=== PATIENT | male | born 1955 | race Hispanic/Latino ===

== ENCOUNTER → 2017-11-22 | Outpatient (CLI) | payer MEDICARE ==
[~2017-11-22] MED LIST: AMLODIPINE BESY10 MG PO; ATORVASTATIN CA20 MG PO; CEFTIN PO; CHERATUSSIN AC118 ML PO; CYCLOBENZAPRINE10 MG PO; DOXAZOSIN MESYLA4 MG PO; FAMOTIDINE20 MG PO; LISINOPRIL10 MG PO; MELOXICAM15 MG PO; METFORMIN HCL850 MG PO; METOCLOPRAMIDE10 MG PO; METOPROLOL SUCC25 MG PO; ULTRAM50 MG PO; ZITHROMAX500 MG PO
--- NOTE | 2017-11-22 12:51 | Diagnostic Imaging Report ---
EXAMINATION: Scrotal ultrasound CLINICAL INDICATION: Hydrocele. COMPARISON: None. TECHNIQUE: Grayscale and color Doppler evaluation of the scrotum was performed in transverse and longitudinal planes. FINDINGS: The right testicle measures 5.4 x 2.5 x 2.8 cm. There are no masses or calcifications.. The right epididymis measures 1.3 x 1.1 x 0.8 cm. No nodules or masses.. There is no evidence of right hydrocele or varicocele. There is normal flow to the right testicle, without evidence of torsion. The left testicle measures 4.9 x 2.5 x 3.4 cm. There are no masses or calcifications.. The left epididymis measures 1.8 x 1.2 x 1 cm. There are 3 separate ovoid anechoic lesions in the left epididymis ranging in size from 0.3 cm to 1.2 cm.. Moderate mildly complex left hydrocele with multiple dependent low-level internal echoes. There is normal flow to the left testicle without evidence of torsion. The scrotum has a normal appearance, without focal lesions. Impression: Moderate minimally complex left hydrocele. Multiple left epididymal head cysts or spermatoceles. Unremarkable sonographic appearance of the testes. Signed by: Dr. Nacho Modi M.D. on 11/22/2017 12:48 PM
== END ==
LOC: US 11:34
PROVIDERS: ATTEND Urology
DX: N43.3 Hydrocele, unspecified (principal)
CPT/HCPCS: 76870; 93976

== ENCOUNTER 2018-01-26 01:55 | Observation (INO) | payer MEDICARE ==
[~2018-01-26] VITALS: Ht 170.2 cm; Wt 88.5 kg
[2018-01-26] VITALS (9 sets, daily range): BP systolic 116–142; BP diastolic 59–72
--- OUTSIDE RECORDS SUMMARY | 2018-01-26 01:58 | XMS REPORT ---
Author Author Admin, [place] Organization [facility] Address [address] [place] [address] Phone Allergies, Adverse Reactions, Alerts Allergy Name Reaction Description Start Date Severity Status Provider No Known Allergies Cyndiesharleneharitha Irene WEB SITE ADMIN Conditions or Problems Problem Name Problem Code Onset Date Status Entry Date Provider Comment Standard Description Annotate Cough 786.2 Active David Fletcher MD Cough URI 465.9 Active David Fletcher MD Acute upper respiratory infections of unspecified site Astigmatism - OU 367.2 Active Deborah Bhakhrani OD Astigmatism Hyperopia - OU 367.0 Active Deborah Bhakhrani OD Hypermetropia Presbyopia - OU 367.4 Active Deborah Bhakhrani OD Presbyopia Depression 311 Active David Fletcher MD Depressive disorder, not elsewhere classified Diabetes mellitus, type II 250.00 Active David Fletcher MD Diabetes mellitus without mention of complication, type II or unspecified type, not stated as uncontrolled Vaccination Against Influenza V04.81 Active David Fletcher MD Need for prophylactic vaccination and inoculation against influenza Hypogonadism 257.2 Active David Fletcher MD Other testicular hypofunction Libido, decreased 799.81 Active David Fletcher MD Decreased libido 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 David Fletcher MD Other nonthrombocytopenic purpuras Smoker 305.1 Active David Fletcher MD Tobacco use disorder BPH 600.00 Active David Fletcher MD Hypertrophy (benign) of prostate without urinary obstruction and other lower urinary tract (LUTS) Hypertension 401.1 Active David Fletcher MD Benign essential hypertension Hypothyroidism 244.9 Active David Fletcher MD Unspecified hypothyroidism Muscle spasm of back 724.8 Active David Fletcher MD Other symptoms referable to back Vaccination Against Influenza V04.81 Inactive David Fletcher MD Need for prophylactic vaccination and inoculation against influenza Vaccination Against Influenza ICD-V04.81 Inactive David Fletcher MD Medication List Medication Instructions Start Date Stop Date Generic Name NDC Status Provider Patient Instruction CHERATUSSIN AC 100-10 MG/5ML ORAL SYRUP 2 teaspoons (10mL) by mouth at bedtime as needed for cough GUAIFENESIN-CODEINE 88647499534 Active David Fletcher MD Active METFORMIN HCL 850 MG ORAL TABLET 1 by mouth twice a day METFORMIN HCL 32629746451 Active David Fletcher MD Active AMLODIPINE BESYLATE 10 MG ORAL TABLET 1 tab by mouth daily AMLODIPINE BESYLATE 39341240522 Active David Fletcher MD Active ATORVASTATIN CALCIUM 20 MG ORAL TABLET take one tab By Mouth Every Day ATORVASTATIN CALCIUM 65500618632 Active David Fletcher MD Active METOPROLOL SUCCINATE ER 25 MG ORAL TABLET EXTENDED RELEASE 24 HOUR 1 tab by mouth daily METOPROLOL SUCCINATE 74706302941 Active David Fletcher MD Active LISINOPRIL 20 MG ORAL TABLET 1 by mouth every day LISINOPRIL 83737807602 Active David Fletcher MD Active CYCLOBENZAPRINE HCL 10 MG ORAL TABLET 1 By Mouth three times a day as needed for muscle spasm CYCLOBENZAPRINE HCL 04905085430 Active David Fletcher MD Active LEVOTHYROXINE SODIUM 25 MCG ORAL TABLET One tab by mouth daily LEVOTHYROXINE SODIUM 42007026009 Active David Fletcher MD Active MELOXICAM 15 MG ORAL TABLET take one tab By Mouth Every Day As Needed for pain MELOXICAM 24131120400 Active David Fletcher MD Active TAMSULOSIN HCL 0.4 MG ORAL CAPSULE take 2 caps By Mouth Every Day TAMSULOSIN HCL 80757186008 Active David Fletcher MD Active Immunizations Vaccine Administration Date Value Standard Description influenza immunization (Flu Vax) has been administered given influenza virus vaccine, unspecified formulation influenza immunization (Flu Vax) has been administered given influenza virus vaccine, unspecified formulation Vital Signs Date Name Value Unit Range Description blood pressure, diastolic 67 mm[Hg] BP billings blood pressure, systolic 112 mm[Hg] BP sys height E&M 67 [in_us] Bdy height pulse rate E&M 110 /min Heart rate respiratory rate E&M 18 /min Resp rate temperature E&M 98.0 [degF] Body temperature weight E&M 195.50 [lb_av] Weight Measured blood pressure, diastolic 74 mm[Hg] BP billings blood pressure, systolic 125 mm[Hg] BP sys height E&M 67 [in_us] Bdy height pulse rate E&M 75 /min Heart rate respiratory rate E&M 18 /min Resp rate temperature E&M 98.1 [degF] Body temperature weight E&M 198.13 [lb_av] Weight Measured blood pressure, diastolic 74 mm[Hg] BP billings blood pressure, systolic 118 mm[Hg] BP sys height E&M 67 [in_us] Bdy height pulse rate E&M 87 /min Heart rate respiratory rate E&M 18 /min Resp rate temperature E&M 97.8 [degF] Body temperature weight E&M 196.25 [lb_av] Weight Measured blood pressure, diastolic 76 mm[Hg] BP billings blood pressure, systolic 131 mm[Hg] BP sys height E&M 67 [in_us] Bdy height pulse rate E&M 77 /min Heart rate respiratory rate E&M 16 /min Resp rate temperature E&M 98.3 [degF] Body temperature weight E&M 197 [lb_av] Weight Measured blood pressure, diastolic 85 mm[Hg] BP billings blood pressure, systolic 128 mm[Hg] BP sys height E&M 67 [in_us] Bdy height pulse rate E&M 82 /min Heart rate respiratory rate E&M 18 /min Resp rate temperature E&M 98.3 [degF] Body temperature weight E&M 200.38 [lb_av] Weight Measured blood pressure, diastolic 85 mm[Hg] BP billings blood pressure, systolic 138 mm[Hg] BP sys height E&M 67 [in_us] Bdy height pulse rate E&M 87 /min Heart rate respiratory rate E&M 18 /min Resp rate temperature E&M 98.2 [degF] Body temperature weight E&M 295.38 [lb_av] Weight Measured blood pressure, diastolic 82 mm[Hg] BP billings blood pressure, systolic 145 mm[Hg] BP sys height E&M 67 [in_us] Bdy height pulse rate E&M 83 /min Heart rate respiratory rate E&M 20 /min Resp rate temperature E&M 97.4 [degF] Body temperature weight E&M 204.80 [lb_av] Weight Measured blood pressure, diastolic 85 mm[Hg] BP billings blood pressure, systolic 135 mm[Hg] BP sys height E&M 67 [in_us] Bdy height pulse rate E&M 78 /min Heart rate respiratory rate E&M 18 /min Resp rate temperature E&M 98.2 [degF] Body temperature weight E&M 199.25 [lb_av] Weight Measured blood pressure, diastolic 90 mm[Hg] BP billings blood pressure, systolic 157 mm[Hg] BP sys height E&M 67 [in_us] Bdy height pulse rate E&M 72 /min Heart rate respiratory rate E&M 18 /min Resp rate temperature E&M 97.7 [degF] Body temperature weight E&M 201.38 [lb_av] Weight Measured blood pressure, diastolic 84 mm[Hg] BP billings blood pressure, systolic 149 mm[Hg] BP sys height E&M 67 [in_us] Bdy height pulse rate E&M 75 /min Heart rate respiratory rate E&M 18 /min Resp rate temperature E&M 98.2 [degF] Body temperature weight E&M 200.25 [lb_av] Weight Measured Diagnostic Results Date Name Value Unit Range Description Lab Report: CBC With Differential/Platelet, Testosterone,Free and Total, ... - Hematology hematocrit, blood 44.3 % 37.5-51.0 Lab Report: CBC With Differential/Platelet, Testosterone,Free and Total, ... - Chemistry Absolute Neutrophils 7.9 X10E3/UL 10*3/uL 1.4-7.0 Lab Report: TSH - Chemistry thyroid stimulating hormone, serum 0.188 u[iU]/mL 0.450-4.500 Lab Report: CBC With Differential/Platelet, Testosterone,Free and Total, ... - Hematology lymphocytes as percent of blood leukocytes 24 % Not Estab. neutrophils as percent of blood leukocytes 67 % Not Estab. mean corpuscular volume, RBC 87 fL 79-97 basophils as percent of blood leukocytes 1 % Not Estab. basophil count, absolute 0.1 x10E3/uL 0.0-0.2 monocytes as percent of blood leukocytes 4 % Not Estab. Lab Report: CBC With Differential/Platelet, Testosterone,Free and Total, ... - Chemistry testosterone, total 235 ng/dL [phone] Lab Report: CBC With Differential/Platelet, Testosterone,Free and Total, ... - Hematology Eosinophil Absolute Count 0.3 X10E3/UL 10*3/uL 0.0-0.4 eosinophils as percent of blood leukocytes 3 % Not Estab. mean corpuscular hemoglobin, RBC 30.5 pg 26.6-33.0 red blood cell distribution width 14.8 % 12.3-15.4 mean corpuscular hemoglobin concentration, RBC 35.2 G/DL % 31.5-35.7 leukocyte count, blood 11.7 X10E3/UL 10*3/mm3 3.4-10.8 erythrocyte (RBC) count 5.12 X10E6/UL 10*6/mm3 4.14-5.80 monocyte count, blood, automated 0.4 X10E3/UL 10*3/uL 0.1-0.9 Lab Report: CBC With Differential/Platelet, Testosterone,Free and Total, ... - Chemistry immature granulocytes, percentage of total cells, blood 1 % Not Estab. Lab Report: CBC With Differential/Platelet, Testosterone,Free and Total, ... - Hematology platelet count 189 X10E3/UL 10*3/mm3 673-364 2966/09/24 hemoglobin, blood 15.6 g/dL 13.0-17.7 lymphocyte count, blood, automated 2.8 X10E3/UL 10*3/mm3 0.7-3.1 Encounters Date Encounter Provider Code Facility 15:16:08 SECURITY SHIFT SUPERVISOR Est Patient Exp Problem - [id number] David Fletcher MD CPT-99297 [facility] 09:36:16 SECURITY SHIFT SUPERVISOR Est Patient Exp Problem - 25917 David Fletcher MD CPT-61560 [facility] 12:10:28 CDT Est Patient Exp Problem - 29798 David Fletcher MD CPT-20029 [facility] 14:04:55 CDT Est Patient Exp Problem - 02097 David Fletcher MD CPT-52333 [facility] 10:57:56 CDT Est Patient Exp Problem - 05167 David Fletcher MD CPT-11232 [facility] 16:03:55 CDT Est Patient Exp Problem - 56309 David Fletcher MD CPT-20125 [facility] 14:29:16 CDT Est Patient Detailed - 52655 David Fletcher MD CPT-89407 [facility] 09:54:40 SECURITY SHIFT SUPERVISOR Est Patient Exp Problem - 62231 David Fletcher MD CPT-44066 [facility] 10:31:47 SECURITY SHIFT SUPERVISOR Est Patient Detailed - 07488 David Fletcher MD CPT-68027 [facility] 14:56:53 SECURITY SHIFT SUPERVISOR New Patient Comprehensive - 30885 David Fletcher MD CPT-38352 [facility] Procedures Code Procedure Name Date Entry Date Standard Description CPT-08057 New Patient Intermediate Opth - 74804 15:33:33 CDT CPT-02603 HEMOGLOBIN A1C - In House 14:04:26 CDT
--- OUTSIDE RECORDS SUMMARY | 2018-01-26 01:58 | XMS REPORT ---
Author Author [facility] Address Unknown Phone Unavailable Care Team Providers Care Call Circuit Worker Name Role Phone ALANNA HOLLIDAY Unavailable Unavailable Problems This patient has no known problems. Allergies, Adverse Reactions, Alerts This patient has no known allergies or adverse reactions. Medications This patient has no known medications. Results Test Description Test Time Test Comments Text Results Atomic Results Result Comments US TESTICULAR 2017-11-22 12:44:00 [place] [address] Patient Name: CHRISSY GONSALES MR #: [id number] : 1955 Age/Sex: 62/M Req #: [id number] [facility] Physician: Ordered by: ALANNA HOLLIDAY MD Report #: [id number] Location: US Room/Bed: Procedure: [id number] US/US TESTICULAR Exam Date: Exam Time: REPORT STATUS: Signed EXAMINATION: Scrotal ultrasound CLINICAL INDICATION: Hydrocele. COMPARISON: None. TECHNIQUE: Grayscale and color Doppler evaluation of the scrotum was performed in transverse and longitudinal planes. FINDINGS: The right testicle measures 5.4 x 2.5 x 2.8 cm. There are no masses or calcifications.. The right epididymis measures 1.3 x 1.1 x 0.8 cm. No nodules or masses.. There is no evidence of right hydrocele or varicocele. There is normal flow to the right testicle, without evidence of torsion. The left testicle measures 4.9 x 2.5 x 3.4 cm. There are no masses or calcifications.. The left epididymis measures 1.8 x 1.2 x 1 cm. There are 3 separate ovoid anechoic lesions in the left epididymis ranging in size from 0.3 cm to 1.2 cm.. Moderate mildly complex left hydrocele with multiple dependent low-level internal echoes. There is normal flow to the left testicle without evidence of torsion. The scrotum has a normal appearance, without focal lesions. Impression: Moderate minimally complex left hydrocele. Multiple left epididymal head cysts or spermatoceles. Unremarkable sonographic appearance of the testes. Signed by: Dr. Rory Berg M.D. on 11/22/2017 12:48 PM Dictated By: RORY BERG MD 47 Transcribed By: NUNU on 11/22/171247 COPY TO: ALANNA HOLLIDAY MD US TESTICULAR DOPPLER LTD 2017-11-22 12:44:00 [place] [address] Patient Name: CHRISSY GONSALES MR #: [id number] : 1955 Age/Sex: 62/M Req #: [id number] Adm Physician: Ordered by: ALANNA HOLLIDAY MD Report #: [id number] Location: Room/Bed: Procedure: [id number] US/US TESTICULAR DOPPLER LTD Exam Date: Exam Time: REPORT STATUS: Signed EXAMINATION: Scrotal ultrasound CLINICAL INDICATION: Hydrocele. COMPARISON: None. TECHNIQUE: Grayscale and color Doppler evaluation of the scrotum was performed in transverse and longitudinal planes. FINDINGS: The right testicle measures 5.4 x 2.5 x 2.8 cm. There are no masses or calcifications.. The right epididymis measures 1.3 x 1.1 x 0.8 cm. No nodules or masses.. There is no evidence of right hydrocele or varicocele. There is normal flow to the right testicle, without evidence of torsion. The left testicle measures 4.9 x 2.5 x 3.4 cm. There are no masses or calcifications.. The left epididymis measures 1.8 x 1.2 x 1 cm. There are 3 separate ovoid anechoic lesions in the left epididymis ranging in size from 0.3 cm to 1.2 cm.. Moderate mildly complex left hydrocele with multiple dependent low-level internal echoes. There is normal flow to the left testicle without evidence of torsion. The scrotum has a normal appearance, without focal lesions. Impression: Moderate minimally complex left hydrocele. Multiple left epididymal head cysts or spermatoceles. Unremarkable sonographic appearance of the testes. Signed by: Dr. Rory Berg M.D. on 11/22/2017 12:48 PM Dictated By: RORY BERG MD 1248 Transcribed By: NUNU on 11/22/17 1248 COPY TO: ALANNA HOLLIDAY MD
[2018-01-26] MEDS ORDERED: ASPIRIN 81 MG CHEW TAB PO ONE ×2 (02:00→03:30)
[2018-01-26] MEDS ORDERED: CYCLOBENZAPRINE10 MG PO (02:09)
[2018-01-26] MEDS ORDERED: ATORVASTATIN CA20 MG PO (02:09)
[2018-01-26] MEDS ORDERED: ULTRAM50 MG PO (02:09)
[2018-01-26] MEDS ORDERED: AMLODIPINE BESY10 MG PO (02:09)
[2018-01-26] MEDS ORDERED: MELOXICAM15 MG PO (02:09)
[2018-01-26] MEDS ORDERED: CHERATUSSIN AC118 ML PO (02:09)
[2018-01-26] MEDS ORDERED: METOPROLOL SUCC25 MG PO (02:09)
[2018-01-26] MEDS ORDERED: DOXAZOSIN MESYLA4 MG PO (02:09)
[2018-01-26] MEDS ORDERED: METFORMIN HCL850 MG PO (02:09)
[2018-01-26] MEDS ORDERED: LISINOPRIL10 MG PO (02:09)
[2018-01-26 02:20] LABS: BASOPHILS # (AUTO) 0.1 (0.0-0.1); BASOPHILS % 0.8 % (0.0-1.0); EOSINOPHILS # (AUTO) 0.4 (0.0-0.4); EOSINOPHILS % 4.1 % (0.0-6.0); HEMATOCRIT 38.1 % (38.2-49.6); HEMOGLOBIN 12.9 g/dL (14.0-18.0); LYMPHOCYTES # (AUTO) 2.7 (1.0-3.2); LYMPHOCYTES % 27.3 % (18.0-39.1); MEAN CORPUSCULAR HEMOGLOBIN 29.1 pg (28-32); MEAN CORPUSCULAR HGB CONC 33.9 g/dL (31-35); MEAN CORPUSCULAR VOLUME 85.8 fL (81-99); MONOCYTES # (AUTO) 0.7 (0.2-0.8); MONOCYTES % 7.1 % (4.4-11.3); NEUTROPHILS # (AUTO) 5.7 (2.1-6.9); PLATELET COUNT 199 x10e3/uL (140-360); RED BLOOD COUNT 4.44 x10e6/uL (4.3-5.7); RED CELL DISTRIBUTION WIDTH 13.9 % (11.7-14.4)
--- NOTE | 2018-01-26 02:25 | NUR ---
PT COMPLAINING CHEST PAIN RETURNING. PERFORMED EKG AND NO ABNORMALITIES WERE NOTED. PT WAS NSR. NO DISTRESS NOTED. WILL CONTINUE TO MONITOR PT.
[2018-01-26] MEDS ORDERED: NITROGLYCERIN 2% OINT 1 GM PKT TOP ONE (02:30)
[2018-01-26] MEDS ORDERED: NITROGLYCERIN 2% OINT 1 GM PKT ONE (02:31)
[2018-01-26 02:32] LABS: ALANINE AMINOTRANSFERASE 17 IU/L (0-55); ALBUMIN 3.9 g/dL (3.5-5.0); ALBUMIN/GLOBULIN RATIO 1.1 (0.8-2.0); ALKALINE PHOSPHATASE 76 IU/L (40-150); ANION GAP 17.7 mmol/L (8-16); BLOOD UREA NITROGEN 28 mg/dL (7-26); BUN/CREATININE RATIO 19 (6-25); CALCIUM 9.2 mg/dL (8.4-10.2); CARBON DIOXIDE 15 mmol/L (22-29); CHLORIDE 109 mmol/L (98-107); CREATINE KINASE 47 IU/L (30-200); CREATININE, SERUM 1.44 mg/dL (0.72-1.25); EST GLOMERULAR FILTRATION RATE 49 ML/MIN (60-); GLUCOSE 140 mg/dL (74-118); POTASSIUM 3.7 mmol/L (3.5-5.1); SODIUM 138 mmol/L (136-145)
[2018-01-26 02:36] LABS: INFLUENZAE A&B ANTIGEN (RAPID) NEGATIVE (NEGATIVE); STREPTOCOCCUS GRP A ANTIGEN NEGATIVE (NEGATIVE)
--- NOTE | 2018-01-26 03:08 | Diagnostic Imaging Report ---
CHEST 2 VIEWS, Technique: CHEST 2 VIEWS Comparison: None Clinical history: Cough, chest pain DISCUSSION: The heart size is within normal limits. Mild perihilar/interstitial opacity, predominantly on the left. No effusion or pneumothorax. IMPRESSION: Findings which can be seen with atypical infection. Recommend 6-8 week follow-up to reassess. Signed by: Dr Olivia Lopez MD on 01/26/2018 3:05 AM
[2018-01-26] MEDS ORDERED: DEXTROSE 50% SYRINGE 50 ML IV PRN (03:30)
[2018-01-26] MEDS ORDERED: SODIUM CHLORIDE 0.9% 1000ML 1,000 ML ONE (03:35)
[2018-01-26] MEDS: CEFTRIAXONE SOD 1 GM VIAL IV SCH (03:43)
[2018-01-26] MEDS: SODIUM CHLORIDE 0.9% 1000ML 1,000 ML IV SCH ×2 (03:50→13:32)
[2018-01-26] MEDS: AZITHROMYCIN 500MG/SOD CHL 0.9% 250ML BAG IV SCH (03:50)
--- NOTE | 2018-01-26 06:21 | NUR ---
PT ARRIVED ON THE UNIT VIA WHEELCHAIR AT 0417 WITH . PT IS A&OX3. PT DENIES CHEST PAIN, SOB, AND N/V. RESPIRATION IS EVEN AND UNLABORED, NO DISTRESS NOTED. PT ORIENTED TO THE ROOM, BED IN THE LOWEST POSITION, LOCKED, AND CALL LIGHT WITHIN REACH. ADMISSION AND HEAD TO TOE ASSESSMENT COMPLETE. WILL CONTINUE TO MONITOR.
[2018-01-26] MEDS: INSULIN REGULAR, HUMAN 100 UNIT/1 ML 3ML VIAL SQ SCH ×4 (07:30→21:00)
[2018-01-26] MEDS: METOPROLOL SUCCINATE 25 MG TAB XL PO SCH (10:35)
--- NOTE | 2018-01-26 10:37 | NUR ---
CASE MANAGEMENT INITIAL ASSESSMENT Animal Anatomist to bedside to discuss plan of care with patient/family. CM/SW role and care transitions discussed. Anticipated discharge plan discussed along with duration of care. CM/SW discussed patients right to make decisions in care. CM/SW work hours given. Patient lives: IN APARTMENT DOWNSTAIRS WITH SABRA Admit/Transfer: VIA ED FROM HOME POA/Emergency contact: SABRA [phone] DAUGHTER ALIYA HACKETT [phone] Current/Previous Home Health: HAS A NURSE BEING SENT OUT FOR EDUCATION FOR NEW DM EDUCATION FROM INSURANCE PCP/Follow-up Care: [facility] AT [facility] ON [address] Current/Previous DME: NONE Other Services: DISABLE FROM BACK INJURY Employment Status: RETIRED Areas of Concerns: QUIT SMOKING 3 MONTHS AGO Referral Needs: DM EDUCATION Education Needs: DM NEW IMM/CISNEROS given and signed (if applicable): CISNEROS Goal for discharge: RETURN HOME INDEPENDENTLY CM/SW left business card at the bedside with contact information. Name and number was also written on the patients whiteboard. Patient verbalized understanding of discussion. CM will follow-up with ongoing discharge and transition of care needs.
[2018-01-26 11:13] LABS: CREATINE KINASE 37 IU/L (30-200)
[2018-01-26] MEDS: FAMOTIDINE 20 MG TAB PO SCH (16:03)
[2018-01-26] MEDS: METOCLOPRAMIDE HCL 10 MG TAB PO SCH ×2 (16:03→21:27)
[2018-01-26] MEDS: METFORMIN HCL 500 MG TAB PO SCH (16:03)
[2018-01-26] MEDS: GUAIFENESIN 600MG/DEXTROMETHORPHAN 30MG TABSR PO SCH (16:05)
[2018-01-26] MEDS ORDERED: FAMOTIDINE 20 MG TAB PO SCH (16:30)
--- NOTE | 2018-01-26 16:33 | NUR ---
Nutrition Screen Note RD Recommendation for Physician: -Continue ADA diet as ordered -RD provided diabetes education on 01/26 Plan of Care: RD following, monitoring for tolerance and adequacy Nutrition reason for involvement: RN consult diabetes education Primary Diagnose(s): chest pain PMH: HTN, DM, HLD Ht: 67in Wt: 195lb BMI: 30.5kg/m2 IBW: 148lb RD Assessment: (01/26) Chart reviewed. Labs and meds reviewed. 62 yo M, who is admitted for chest pain. Visited pt in the room. Pt reports good appetite with ~100% recorded meal intake. No GI complains noted. LBM 01/25. Pt denies any recent weight loss. No complains of chewing or swallowing difficulty. RD provided diabetes education as consulted. Encouraged pt to f/u with outpatient DM education. Will continue to monitor and follow. Current Diet: ADA diet Malnutrition Evaluation (01/26) The patient does not meet criteria for a specified degree of malnutrition at this time. Will re-evaluate at follow-up as appropriate. Diet Education Needs Assessment: Diet education indicated, pt is agreeable with plan. Learner(s): pt and Barriers: Pt and dont know how to read or write in [place]. Handout is given for pt to take home to let their daughters further explain it. Cultural/Language Modifications: [place] diet. has been making diet changes since pt has been dx with DM 1.5 months ago. BG controlled well with diet and medications at home. Readiness: Ready Method: Explanation, handouts Topics: Carbohydrate counting, label reading Understanding/Compliance: Understood. All questions have been answered. Nutrition Care Level: low Signed: Mayra Hill, , RD, LD
--- NOTE | 2018-01-26 16:36 | History and Physical ---
PRIMARY CARE PHYSICIAN: Patient does not have a local PCP. CHIEF COMPLAINT: Chest pain. HISTORY OF PRESENT ILLNESS: Mr. Kowalski is a 62-year-old gentleman who went to see his doctor for a productive cough, was given some cough medicine with codeine, which he took before he went to bed, woke up a few hours later with severe left-sided chest pain. The pain has resolved overnight. REVIEW OF SYSTEMS: He denies fever, chills or weight loss. He denies sinus congestion or sore throat. He has chest pain as noted without diaphoresis or shortness of breath. He has a nonproductive cough without shortness of breath or wheezing. He denies abdominal pain, nausea, vomiting or melena. He denies dysuria or flank pain. He denies rash or pruritus. He denies joint pain or swelling. He denies bleeding or bruising. He denies headache, vertigo or loss of consciousness. He denies depression, agitation, homicidal or suicidal ideation. PAST MEDICAL HISTORY: Significant for hypertension, type 2 diabetes, benign prostatic hypertrophy. His regular medications include: Amlodipine 10 mg daily. Lisinopril 20 mg daily. Metoprolol XL 25 mg daily. Metformin 850 mg twice daily. Atorvastatin 20 mg daily. Cyclobenzaprine as needed. Ultram as needed. Doxazosin 4 mg at bedtime. Meloxicam 15 mg daily. HE HAS NO KNOWN DRUG ALLERGIES. He has a history of cholecystectomy, and he is a former smoker who quit about 6 months ago. FAMILY HISTORY: Significant for scattered hypertension and diabetes but no premature heart disease. SOCIAL HISTORY: The patient is . He is bilingual. Speaks good Swedish. He quit smoking 6 months ago. He drinks only rarely. He does not do illegal drugs, and he is generally independently functioning. PHYSICAL EXAM: PSYCHIATRIC: He is alert and oriented times 3 with normal mood and affect. CONSTITUTIONAL: He has a normal body habitus. Is in no acute distress. VITAL SIGNS: Blood pressure 126/65. Pulse 80 and regular. Respiratory rate 14. O2 sat 97%. Temperature 98.2. HEENT: His head is atraumatic. His eyes are anicteric with clear conjunctivae. Ears and nares are without erythema or discharge. Oropharynx is clear. NECK: Is supple with no mass or thyromegaly. LYMPHATIC SYSTEM: He has no palpable cervical, axillary or inguinal adenopathy. CARDIOVASCULAR: His heart has a regular rate and rhythm without murmur or extra heart sound. He has no carotid bruit. He has no peripheral edema. He has palpable dorsal pedal pulses. RESPIRATORY: Lungs are clear to auscultation and percussion with normal respiratory effort. GASTROINTESTINAL: His abdomen is soft without organomegaly, masses or tenderness. He has normal bowel sounds present. CUTANEOUS: His skin is warm and dry to the touch with no rash or skin breakdown. MUSCULOSKELETAL: His joints are in normal alignment without erythema or swelling. He has no calf tenderness. NEUROLOGIC: Exam is nonfocal with intact cranial nerves and no motor or sensory deficits. DIAGNOSTIC STUDIES: Chest x-ray shows left perihilar opacity. His flu screen is negative. His strep screen is negative. His EKG is completely normal. His troponin is less than 0.001 and less than 0.001. His chemistry shows normal electrolytes. CO2 is 15. Creatinine 1.44, BUN 28, for a GFR of 49. Calcium is 9.2. Glucose is 140. Transaminases, bilirubin, alk phos are normal. CBC shows a white count of 9.7 with 59% neutrophils and 27% lymphocytes. Hemoglobin 12.9, hematocrit 38.1 and platelet count 199,000. IMPRESSION AND PLAN: 1. Chest pain, rule out acute coronary syndrome. Aspirin was given in the ER. His troponins are negative times 2 so far; the third one is pending. The chest pain is somewhat atypical in description and occurred at rest while lying down and is most likely due to gastroesophageal reflux. 1. Gastroesophageal reflux disease. Will start the patient on Pepcid and Reglan for that and see if his symptoms improve. 2. Hypertension that is well controlled. Will continue his lisinopril and metoprolol but will hold Norvasc and Cardura at this time as his blood pressure is normal on those two. 3. Type 2 diabetes that is well controlled. Will continue his metformin plus sliding-scale insulin. 4. Acute kidney injury versus chronic kidney disease. Will give IV fluids until baseline is established. Recheck renal function in the a.m. 5. For prophylaxis, the patient will be using SCDs for DVT prophylaxis and Pepcid for GI prophylaxis. Job#: [id number] EV
[2018-01-26] MEDS ORDERED: METFORMIN HCL 850 MG TAB PO SCH (17:00)
[2018-01-26 18:46] LABS: CREATINE KINASE 46 IU/L (30-200)
--- NOTE | 2018-01-26 19:16 | NUR ---
Report received and walking rounds complete. Pt resting in bed and in no apparent distress. All safety measures ensured, bed alarm on, and pt call teixeira near. Pt encouraged to use call teixeira for assistance.
[2018-01-27] VITALS: BP 119/64
[2018-01-27] MEDS: GUAIFENESIN 600MG/DEXTROMETHORPHAN 30MG TABSR PO SCH ×2 (01:24→06:22)
[2018-01-27] MEDS: AZITHROMYCIN 500MG/SOD CHL 0.9% 250ML BAG IV SCH (03:22)
[2018-01-27 04:00] VITALS: BP 136/71
[2018-01-27] MEDS: CEFTRIAXONE SOD 1 GM VIAL IV SCH (04:46)
[2018-01-27 05:41] LABS: BASOPHILS # (AUTO) 0.1 (0.0-0.1); EOSINOPHILS # (AUTO) 0.5 (0.0-0.4); EOSINOPHILS % 5.2 % (0.0-6.0); HEMATOCRIT 35.1 % (38.2-49.6); HEMOGLOBIN 11.7 g/dL (14.0-18.0); LYMPHOCYTES # (AUTO) 1.9 (1.0-3.2); LYMPHOCYTES % 21.5 % (18.0-39.1); MEAN CORPUSCULAR HEMOGLOBIN 28.7 pg (28-32); MEAN CORPUSCULAR HGB CONC 33.3 g/dL (31-35); MONOCYTES # (AUTO) 0.6 (0.2-0.8); MONOCYTES % 6.9 % (4.4-11.3); NEUTROPHILS # (AUTO) 5.7 (2.1-6.9); NEUTROPHILS % 63.8 % (38.7-80.0); PLATELET COUNT 199 x10e3/uL (140-360); RED BLOOD COUNT 4.08 x10e6/uL (4.3-5.7); RED CELL DISTRIBUTION WIDTH 13.8 % (11.7-14.4)
[2018-01-27 06:00] LABS: ALBUMIN 3.5 g/dL (3.5-5.0); CALCIUM 8.7 mg/dL (8.4-10.2); CREATININE, SERUM 1.26 mg/dL (0.72-1.25)
[2018-01-27 06:14] LABS: MAGNESIUM 2.3 MG/DL (1.3-2.1)
[2018-01-27 06:39] LABS: THYROID STIMULATING HORMONE 0.33 uIU/mL (0.350-4.940)
--- NOTE | 2018-01-27 06:51 | NUR ---
report given to oncoming nurse
[2018-01-27] MEDS: INSULIN REGULAR, HUMAN 100 UNIT/1 ML 3ML VIAL SQ SCH (07:30)
--- NOTE | 2018-01-27 07:34 | NUR ---
Report received and walking rounds complete. Patient resting in bed, no signs of distress noted. Bed in lowest position, bed locked, call light within reach. Notified patient to use call teixeira for assistance.
[2018-01-27 08:16] VITALS: BP 131/74
[2018-01-27] MEDS ORDERED: ZITHROMAX500 MG PO (08:20)
[2018-01-27] MEDS ORDERED: METOCLOPRAMIDE10 MG PO (08:20)
[2018-01-27] MEDS ORDERED: FAMOTIDINE20 MG PO (08:20)
[2018-01-27] MEDS ORDERED: CEFTIN PO (08:20)
[2018-01-27] MEDS: METFORMIN HCL 500 MG TAB PO SCH (08:23)
[2018-01-27] MEDS: FAMOTIDINE 20 MG TAB PO SCH (08:23)
[2018-01-27] MEDS: METOCLOPRAMIDE HCL 10 MG TAB PO SCH (08:23)
[2018-01-27] MEDS: METOPROLOL SUCCINATE 25 MG TAB XL PO SCH (08:24)
[2018-01-27 08:40] VITALS: BP 131/74
[2018-01-27] MEDS ORDERED: LISINOPRIL 20 MG TAB PO SCH (09:00)
[2018-01-27] MEDS ORDERED: LISINOPRIL 10 MG TAB PO SCH (09:00)
--- NOTE | 2018-01-27 09:09 | NUR ---
Removed patients IV. Catheter tip intact and pressure dressing applied. No signs of distress noted.
--- NOTE | 2018-01-27 09:46 | NUR ---
Patient discharged from facility via private auto. Patient gathered their own belongings. No signs of distress at this time. Vitals stable, patient given F/U instructions and prescriptions. Patient verbalized understanding of discharge instructions.
--- NOTE | 2018-01-27 19:55 | Discharge Summary ---
ADMISSION DIAGNOSES 1. Chest pain. 2. Gastroesophageal reflux disease. 3. Hypertension. 4. Type 2 diabetes. 5. Acute kidney injury versus chronic kidney disease. DISCHARGE DIAGNOSES 1. Chest pain. 2. Gastroesophageal reflux disease. 3. Hypertension. 4. Type 2 diabetes. 5. Acute kidney injury versus chronic kidney disease. 6. Ruled out myocardial infarction. 7. Bronchopneumonia. 8. Hypermagnesemia. HISTORY: The patient has a history of hypertension, type diabetes and BPH and hyperlipidemia. PAST SURGICAL HISTORY: Cholecystectomy. FAMILY HISTORY: Scattered hypertension and diabetes. HOSPITAL COURSE: A 52-year-old male who sent to see his doctor for productive cough, was given some cough medicine with codeine, which he took before he went to bed, and he woke up a few hours later with severe left-sided chest pain. The pain has resolved overnight. On admission, troponins were negative x3. The patient was given aspirin in the ER and nitroglycerin. The patient was started on Pepcid and Reglan for GERD. Blood pressure was controlled with lisinopril, metoprolol. The patient will resume only those 2 at time of discharge plus the Cardura, which he uses for his BPH. Chest x-ray on admission showed mild perihilar interstitial opacity predominantly on the left. Strep A screen was negative. Influenza screen negative. Vital signs stable. The patient is afebrile. The patient was started on Zithromax and Rocephin. He will discharge home with 3 more days of Zithromax, 5 days of Ceftin, Pepcid and Reglan. He will resume all other home medicines except the Norvasc. He will follow up with primary care in one to two weeks. The patient and understand discharge instructions and agree to plan. Dictated by: Vilma Pedraza NP DARWIN ALICIA MD Job#: [id number]
== END 2018-01-27 09:40 | disposition home or self-care (01) ==
LOC: ER 01:55 → ERHOLD 03:58 → IMCU 04:19
PROVIDERS: ADMIT Internal Medicine; ATTEND Internal Medicine
DX: R07.89 Other chest pain (principal); E11.9 Type 2 diabetes mellitus without complications; E78.5 Hyperlipidemia, unspecified; E03.9 Hypothyroidism, unspecified; K21.9 Gastro-esophageal reflux disease without esophagitis; N17.9 Acute kidney failure, unspecified; I12.9 Hypertensive chronic kidney disease with stage 1 through stage 4 chronic kidney disease, or unspecified chronic kidney disease; N18.9 Chronic kidney disease, unspecified; Z94.0 Kidney transplant status; J18.0 Bronchopneumonia, unspecified organism; E83.41 Hypermagnesemia; Z79.84 Long term (current) use of oral hypoglycemic drugs
CPT/HCPCS: 36415 ×2; 71046; 80053 ×2; 82550; 82553; 82948 ×2; 83518; 83735; 83880; 84443; 84484; 85025 ×2; 87070; 87400; 93005; 99284; G0378 ×2; J0456 ×2; J0696 ×2; J7030

== ENCOUNTER → 2018-08-16 | Outpatient (CLI) | payer MEDICARE ==
[~2018-08-16] MED LIST changes: +IOPAMIDOL 370 MG/ML 200 ML INFUS..BTL INJ ONE; +SODIUM CHLORIDE 0.9% 250ML 250 ML ONE; +SODIUM CHLORIDE 0.9% 500ML 500 ML ONE
[2018-08-16 08:08] LABS: CREATININE, SERUM 1.34 mg/dL (0.72-1.25)
--- NOTE | 2018-08-16 11:06 | Diagnostic Imaging Report ---
EXAM: CT Abdomen and Pelvis WITH intravenous contrast - hematuria protocol INDICATION: Hematuria COMPARISON: None. TECHNIQUE: Abdomen and pelvis were scanned utilizing a multidetector helical scanner from the lung base to the pubic symphysis after administration of IV contrast. Coronal and sagittal reformations were obtained. Routine protocol was performed. Scan was performed when during portal venous phase. IV CONTRAST: 100 mL of Isovue-370 ORAL CONTRAST: Water COMPLICATIONS: None RADIATION DOSE: Total DLP: 1587.32 mGy*cm Dose modulation, iterative reconstruction, and/or weight based adjustment of the mA/kV was utilized to reduce the radiation dose to as low as reasonably achievable. FINDINGS: LOWER THORAX: Minimal bibasilar subsegmental atelectasis. No focal consolidation. HEPATOBILIARY: No focal hepatic lesions. No biliary ductal dilatation. Status post cholecystectomy. SPLEEN: No splenomegaly. PANCREAS: No focal masses or ductal dilatation. ADRENALS: No adrenal nodules. KIDNEYS/URETERS: No hydronephrosis, renal calculi, or solid mass lesions. Multiple cysts in the left kidney, the largest of which measures 2.0 cm (series 7 image 90). Subcentimeter simple cysts in the right kidney measure up to 5 mm. Delayed excretory phase images demonstrate contrast opacification of the course of the ureters with exception of the most proximal right ureter. No filling defects or evidence of urothelial lesion. PELVIC ORGANS/BLADDER: Unremarkable. PERITONEUM / RETROPERITONEUM: No free air or fluid. LYMPH NODES: No lymphadenopathy. VESSELS: Scattered atherosclerotic calcifications involve the abdominal aorta and major branches. GI TRACT: Mild colonic diverticulosis without CT evidence of diverticulitis. No abnormal bowel wall thickening or bowel distention. Normal appendix. BONES AND SOFT TISSUES: No fracture or dislocation. No suspicious lytic or blastic lesions. Mild degenerative changes of the visualized spine. IMPRESSION: No hydronephrosis, renal calculi, or solid mass lesions involving the kidneys, ureters or bladder. Signed by: Catarino Whitmore MD on 08/16/2018 11:03 AM
== END ==
LOC: CT 07:09
PROVIDERS: ATTEND Urology
DX: R31.21 Asymptomatic microscopic hematuria (principal)
CPT/HCPCS: 36415; 74178; 82565; 84520; 96360; J7040; J7050; Q9967

== ENCOUNTER → 2019-03-15 | Day surgery (SDC) | payer MEDICARE ==
[2019-03-14 10:34] LABS: BASOPHILS # (AUTO) 0.1 (0.0-0.1); BASOPHILS % 1.3 % (0.0-1.0); EOSINOPHILS # (AUTO) 0.2 (0.0-0.4); EOSINOPHILS % 3.7 % (0.0-6.0); HEMOGLOBIN 13.2 g/dL (14.0-18.0); LYMPHOCYTES # (AUTO) 1.6 (1.0-3.2); LYMPHOCYTES % 26.3 % (18.0-39.1); MEAN CORPUSCULAR HEMOGLOBIN 28.3 pg (28-32); MEAN CORPUSCULAR HGB CONC 33.8 g/dL (31-35); MEAN CORPUSCULAR VOLUME 83.7 fL (81-99); MONOCYTES # (AUTO) 0.5 (0.2-0.8); MONOCYTES % 7.9 % (4.4-11.3); NEUTROPHILS # (AUTO) 3.6 (2.1-6.9); NEUTROPHILS % 58.7 % (38.7-80.0); PLATELET COUNT 238 x10e3/uL (140-360); RED BLOOD COUNT 4.66 x10e6/uL (4.3-5.7); RED CELL DISTRIBUTION WIDTH 15.7 % (11.7-14.4)
--- NOTE | 2019-03-14 10:51 | Diagnostic Imaging Report ---
EXAMINATION: CHEST 2 VIEWS INDICATION: Pre-operative COMPARISON: Chest radiograph 01/26/2018 FINDINGS: LINES/TUBES:None LUNGS:The lungs are moderately inflated. No focal consolidation or pulmonary edema. Unchanged reticular left mid and lower lung opacities may be related to chronic interstitial disease. PLEURA:No pleural effusion or pneumothorax. MEDIASTINUM:The cardiomediastinal silhouette appears unchanged in size and shape. BONES/SOFT TISSUES:No acute osseous injury. ABDOMEN:No free air under the diaphragm. IMPRESSION: No focal pneumonia or pulmonary edema. Stable reticular left mid and lower lung opacities compared to 01/26/2018. Signed by: Catarino Whitmore MD on 03/14/2019 10:49 AM
[2019-03-14 11:10] LABS: ANION GAP 16.3 mmol/L (8-16); CALCIUM 9.5 mg/dL (8.4-10.2); CREATININE, SERUM 1.57 mg/dL (0.72-1.25); POTASSIUM 4.3 mmol/L (3.5-5.1)
[2019-03-14 11:43] LABS: EOSINOPHILS % (MANUAL) 3 % (0-7); LYMPHOCYTES % (MANUAL) 25 % (19-48); MONOCYTES % (MANUAL) 5 % (3.4-9.0); NEUTROPHILS % (MANUAL) 66 % (40-74)
[~2019-03-15] MED LIST changes: +ALLOPURINOL100 MG PO; +B&O 60MG R/S 60 MG SUPP PR ONE; +CEFTRIAXONE SOD 1 GM/NS 50 ML 50 ML IV ONE; +DEXAMETHASONE SOD PHOS INJ 4 MG/ML VIAL ONE; +FENTANYL CITRATE/PF 100MCG/2 ML INJ ONE; +GEMFIBROZIL600 MG PO; +GENTAMICIN 80MG/NS 100 ML 200 ML IV ONE; +IOPAMIDOL 300MG/ML 50ML INFUS..BTL IV ONE; -IOPAMIDOL 370 MG/ML 200 ML INFUS..BTL INJ ONE; +LIDOCAINE HCL 2% LOCAL INJ 5 ML SDV VIAL INJ ONE; +ONDANSETRON HCL INJ 2MG/ML 2ML 2 MG/ML VIAL ONE; +PROPOFOL IV EMULSION 10 MG/ML 50 ML VIAL ONE; +SEVOFLURANE INHAL SOLN 250 ML PEN BTL ONE; -SODIUM CHLORIDE 0.9% 250ML 250 ML ONE; -SODIUM CHLORIDE 0.9% 500ML 500 ML ONE; +TYLENOL PO
--- OUTSIDE RECORDS SUMMARY | 2019-03-15 06:32 | XMS REPORT ---
Author Author Admin, [place] Organization [facility] Address [address] [place] [address] Phone Allergies, Adverse Reactions, Alerts Allergy Name Reaction Description Start Date Severity Status Provider No Known Allergies Caitlin Fletcher CMA Conditions or Problems Problem Name Problem Code Onset Date Status Entry Date Provider Comment Standard Description Annotate Skin rash 782.1 Active David Fletcher MD Rash and other nonspecific skin eruption Gout 274.9 Active David Fletcher MD Gout, unspecified Acute bronchitis 466.0 Active David Fletcher MD Acute bronchitis BPH 600.00 Active David Fletcher MD Hypertrophy (benign) of prostate without urinary obstruction and other lower urinary tract (LUTS) Cerumen impaction 380.4 Active David Fletcher MD Impacted cerumen Pneumonia 486 Active David Fletcher MD Pneumonia, organism unspecified Cough 786.2 Active David Fletcher MD Cough [...] or unspecified type, not stated as uncontrolled Hypogonadism 257.2 Active David Fletcher MD Other [...] Against Influenza ICD-V04.81 Inactive David Fletcher MD Vaccination Against Influenza V04.81 Inactive David Fletcher MD Need for prophylactic vaccination and inoculation against influenza Vaccination Against Influenza ICD-V04.81 Inactive David Fletcher MD Medication List Medication Instructions Start Date Stop Date Generic Name NDC Status Provider Patient Instruction PREDNISONE 20 MG ORAL TABLET take 3 tabs By Mouth for first 3 days, then 2 tabs a day next 3 days, and finally 1 tab per day last 3 days PREDNISONE 31988871435 Active David Fletcher MD Active COLCHICINE 0.6 MG ORAL CAPSULE take two caps By Mouth x 1, then 1 cap 1 hour later. May repeat 3 days later if needed. COLCHICINE 01442104063 Active David Fletcher MD Active IBUPROFEN 800 MG ORAL TABLET 1 by mouth every 8 hours as needed IBUPROFEN 49593008401 Active David Fletcher MD Active LISINOPRIL 20MG TAB TAKE 1 TABLET BY MOUTH DAILY LISINOPRIL 73609245377 Active David Fletcher MD Active EZIO DELICA LANCETS 33G CHECK BLOOD SUGAR 1 TO 3 TIMES PER DAY LANCETS 49062234477 Active David Fletcher MD Active EZIO VERIO STRP CHECK BLOOD SUGAR 1 TO 3 TIMES DAILY GLUCOSE BLOOD 92106046568 Active David Fletcher MD Active CHERATUSSIN AC 100-10 MG/5ML ORAL SYRUP 2 teaspoons (10mL) by mouth at bedtime as needed for cough GUAIFENESIN-CODEINE 95901178067 Active David Fletcher MD Active AMLODIPINE 10MG TAB TAKE 1 TABLET BY MOUTH DAILY AMLODIPINE BESYLATE 97450092245 Active David Fletcher MD Active METOPROLOL SUCC ER 25MG TABLET TAKE 1 TABLET BY MOUTH DAILY METOPROLOL SUCCINATE 53403296073 Active David Fletcher MD Active METFORMIN HCL 850 MG ORAL TABLET 1 by mouth twice a day METFORMIN HCL 57433677195 Active David Fletcher MD Active ATORVASTATIN CALCIUM 20 MG ORAL TABLET take one tab By Mouth Every Day ATORVASTATIN CALCIUM 31684236656 Active David Fletcher MD Active CYCLOBENZAPRINE HCL 10 MG ORAL TABLET 1 By Mouth three times a day as needed for muscle spasm CYCLOBENZAPRINE HCL 74270596415 Active David Fletcher MD Active LEVOTHYROXINE SODIUM 25 MCG ORAL TABLET One tab by mouth daily LEVOTHYROXINE SODIUM 58174445562 Active David Fletcher MD Active MELOXICAM 15 MG ORAL TABLET take one tab By Mouth Every Day As Needed for pain MELOXICAM 03007194148 Active David Fletcher MD Active TAMSULOSIN HCL 0.4 MG ORAL CAPSULE take 2 caps By Mouth Every Day TAMSULOSIN HCL 55439731425 Active David Fletcher MD Active Immunizations Vaccine Administration Date Value Standard Description influenza immunization (Flu Vax) has been administered given influenza virus vaccine, unspecified formulation influenza immunization (Flu Vax) has been administered given influenza virus vaccine, unspecified formulation Vital Signs Date Name Value Unit Range Description blood pressure, diastolic 77 mm[Hg] BP billings blood pressure, systolic 123 mm[Hg] BP sys height E&M 67 [in_us] Bdy height pulse rate E&M 102 /min Heart rate respiratory rate E&M 18 /min Resp rate temperature E&M 98.6 [degF] Body temperature weight E&M 199 [lb_av] Weight Measured blood pressure, diastolic 77 mm[Hg] BP billings blood pressure, systolic 129 mm[Hg] BP sys height E&M 67 [in_us] Bdy height pulse rate E&M 92 /min Heart rate respiratory rate E&M 17 /min Resp rate temperature E&M 98.2 [degF] Body temperature weight E&M 198.50 [lb_av] Weight Measured blood pressure, diastolic 77 mm[Hg] BP billings blood pressure, systolic 134 mm[Hg] BP sys height E&M 67 [in_us] Bdy height pulse rate E&M 80 /min Heart rate respiratory rate E&M 18 /min Resp rate temperature E&M 98.2 [degF] Body temperature weight E&M 202.13 [lb_av] Weight Measured blood pressure, diastolic 78 mm[Hg] BP billings blood pressure, systolic 134 mm[Hg] BP sys height E&M 67 [in_us] Bdy height pulse rate E&M 76 /min Heart rate respiratory rate E&M 18 /min Resp rate temperature E&M 98.1 [degF] Body temperature weight E&M 201 [lb_av] Weight Measured blood pressure, diastolic 81 mm[Hg] BP billings blood pressure, systolic 130 mm[Hg] BP sys height E&M 67 [in_us] Bdy height pulse rate E&M 75 /min Heart rate respiratory rate E&M 18 /min Resp rate temperature E&M 98.1 [degF] Body temperature weight E&M 203.25 [lb_av] Weight Measured blood pressure, diastolic 82 mm[Hg] BP billings blood pressure, systolic 134 mm[Hg] BP sys height E&M 67 [in_us] Bdy height pulse rate E&M 77 /min Heart rate respiratory rate E&M 18 /min Resp rate temperature E&M 97.6 [degF] Body temperature weight E&M 199.13 [lb_av] Weight Measured blood pressure, diastolic 87 mm[Hg] BP billings blood pressure, systolic 150 mm[Hg] BP sys height E&M 67 [in_us] Bdy height pulse rate E&M 70 /min Heart rate respiratory rate E&M 18 /min Resp rate temperature E&M 97.8 [degF] Body temperature weight E&M 200.20 [lb_av] Weight Measured blood pressure, diastolic 67 mm[Hg] BP billings [...] temperature weight E&M 200.38 [lb_av] Weight Measured Diagnostic Results Date Name [...] of blood leukocytes 24 % Not Estab. Office Visit: f/u on diabetes RM 5 - Chemistry hemoglobin A1C, blood, as % of total hemoglobin 5.6 % Lab Report: CBC With Differential/Platelet, Testosterone,Free and Total, ... - Hematology neutrophils as percent of blood leukocytes 67 % Not Estab. mean corpuscular volume, RBC 87 fL 79-97 basophils as percent of blood leukocytes 1 % Not Estab. basophil count, absolute 0.1 x10E3/uL 0.0-0.2 monocytes as percent of blood leukocytes 4 % Not Estab. Lab Report: CBC With Differential/Platelet, Testosterone,Free and Total, ... - Chemistry testosterone, total 235 ng/dL [phone] Lab Report: Uric Acid - Chemistry uric acid, serum 10.1 mg/dL 3.7-8.6 Lab Report: CBC With Differential/Platelet, Testosterone,Free and [...] - Hematology platelet count 189 X10E3/UL 10*3/mm3 399-263 1375/09/24 hemoglobin, blood 15.6 g/dL 13.0-17.7 lymphocyte count, blood, automated 2.8 X10E3/UL 10*3/mm3 0.7-3.1 Encounters Date Encounter Provider Code Facility 15:13:06 CDT Est Patient Exp Problem - 64577 David Fletcher MD CPT-95545 [facility] 09:26:27 CDT Est Patient Exp Problem - 28906 David Fletcher MD CPT-54790 [facility] 15:19:01 CDT Est Patient Exp Problem - 03487 David Fletcher MD CPT-38564 [facility] 15:16:24 CDT Est Patient Exp Problem - 52036 David Fletcher MD CPT-42534 [facility] 15:45:28 CDT Est Patient Exp Problem - 05355 David Fletcher MD CPT-50209 [facility] 09:42:17 [employer]NAGER [employer] Est Patient Exp Problem - 01835 David Fletcher MD CPT-25482 [facility] 15:05:07 MANAGER [employer] Est Patient Exp Problem - 48407 David Fletcher MD CPT-05758 [facility] 15:16:08 MANAGER [employer] Est Patient Exp Problem - 93330 David Fletcher MD CPT-82516 [facility] 09:36:16 MANAGER [employer] Est Patient Exp Problem - 16989 David Fletcher MD CPT-57387 [facility] 12:10:28 CDT Est Patient Exp Problem - 87731 David Fletcher MD CPT-44801 [facility] 14:04:55 CDT Est Patient Exp Problem - 84499 David Fletcher MD CPT-39341 [facility] 10:57:56 CDT Est Patient Exp Problem - 38785 David Fletcher MD CPT-17601 [facility] 16:03:55 CDT Est Patient Exp Problem - 73911 David Fletcher MD CPT-18916 [facility] 14:29:16 CDT Est Patient Detailed - 21207 David Fletcher MD CPT-44295 [facility] 09:54:40 MANAGER [employer] Est Patient Exp Problem - 32042 David Fletcher MD CPT-79458 [facility] 10:31:47 MANAGER [employer] Est Patient Detailed - 84319 David Fletcher MD CPT-00395 [facility] 14:56:53 MANAGER [employer] New Patient Comprehensive - 15292 David Fletcher MD CPT-23254 [facility] Procedures Code Procedure Name Date Entry Date Standard Description CPT-30210 Ear Irrigation 15:15:41 CDT CPT-49759 New Patient Intermediate Opth - 13779 15:33:33 CDT CPT-52049 HEMOGLOBIN A1C - In House 14:04:26 CDT
--- OUTSIDE RECORDS SUMMARY | 2019-03-15 06:33 | XMS REPORT ---
Author Author Admin, [place] Organization Unknown Address Unknown Phone Unavailable PROBLEMS Condition Status Date Provider Notes Low TSH active Adelita Julio Elevated creatinine active Adelita Julio Skin rash active David Fletcher Gout active David Fletcher Acute bronchitis completed - Adelita Julio Cerumen impaction active David Fletcher BPH active David Fletcher Pneumonia active David Fletcher Cough active David Fletcher URI active - David Fletcher Presbyopia - OU active Deborah Bhakhrani Astigmatism - OU active Deborah Bhakhrani Hyperopia - OU active Deborah Bhakhrani Depression active David Fletcher Vaccination Against Influenza completed - David Fletcher Diabetes mellitus, type II active David Fletcher Hypogonadism active David Fletcher Libido, decreased active David Fletcher Purpura active David Fletcher Vaccination Against Influenza completed - David Fletcher Smoker active David Fletcher Hypertension active David Fletcher Hypothyroidism active David Fletcher BPH active David Fletcher Muscle spasm of back active David Fletcher ENCOUNTERS Date Type Provider Location Encounter Diagnosis - Ambulatory Encounter Love Chisholm [facility] UNK - Ambulatory Encounter Adelita Kim [facility] UNK - Ambulatory Encounter Adelita Julio [facility] Acute bronchitisElevated creatinineLow TSH - Ambulatory Encounter [facility] David Fletcher [facility] UNK - Ambulatory Encounter [facility] Skin rash - Ambulatory Encounter David Fletcher [facility] UNK - Ambulatory Encounter David Fletcher [facility] UNK - Ambulatory Encounter David ColeLogic [facility]ulatory Encounter David Fletcher [facility] UNK - Ambulatory Encounter David Fletcher [facility] UNK - Ambulatory Encounter David Marcano [facility] Gout - Ambulatory Encounter David ColeLogjonathon [facility] - [facility] Be[facility] - Ambulatory Encounter David Fletcher [facility] UNK - Ambulatory Encounter David Marcano Irene [facility] Acute bronchitis - Ambulatory Encounter David ColeLogjonathon [facility] UNK - Ambulatory Encounter David Fletcher [facility] UNK - Ambulatory Encounter David D Chance David D Chance Deborath Irene [facility] UNK - Ambulatory Encounter Fax Status Link[facility] UNK - Ambulatory Encounter Fax Status Link[facility] UNK - Ambulatory Encounter Fax Status Link[facility] UNK - Ambulatory Encounter David Fletcher [facility] UNK - Ambulatory Encounter David Ale[facility]re [facility] BPHCerumen impaction - Ambulatory Encounter David Fletcher [facility] UNK - Ambulatory Encounter David Marcano Irene [facility] UNK - Ambulatory Encounter David Fletcher [facility] UNK - Ambulatory Encounter David Fletcher [facility] UNK - Ambulatory Encounter David Fletcher [facility] Pneumonia - Ambulatory Encounter David ColeLogjonathon [facility] UNK - Ambulatory Encounter David Fletcher [facility] UNK - Ambulatory Encounter David Marcano Irene [facility] URICough - Ambulatory Encounter David Fletcher LinkLogjonathon [facility] UNK - Ambulatory Encounter Krys Irene [facility] UNK - Ambulatory Encounter David Fletcher [facility] UNK - Ambulatory Encounter David Fletcher [facility] UNK - Ambulatory Encounter [facility] UNK - Ambulatory Encounter Jessa Reyes [facility] UNK - Ambulatory Encounter David Fletcher [facility] UNK - Ambulatory Encounter David Marcano [facility] UNK - Ambulatory Encounter Kaitlin UshaGarcia [facility] UNK - Ambulatory Encounter David Fletcher [facility] UNK - Ambulatory Encounter Deborah Bhakhrani Deborah Bhakhrani [facility] UNK - Ambulatory Encounter David Bejarano [facility] UNK - Ambulatory Encounter Criss Esparza [facility] UNK - Ambulatory Encounter Deborah Bhakhrani Deborah Bhakhrani [facility] UNK - Ambulatory Encounter Deborah Bhakhrani Deborah Bhakhrani [facility] UNK - Ambulatory Encounter Deborah Bhakhrani Deborah Bhakhrani [facility] UNK - Ambulatory Encounter Deborah Bhakhrani Deborah Bhakhrani [facility] UNK - Ambulatory Encounter Deborah Bhakhrani Deborah Bhakhrani [facility] UNK - Ambulatory Encounter Deborah Bhakhrani Deborah Bhakhrani [facility] UNK - Ambulatory Encounter Deborah Bhakhrani Deborah Bhakhrani [facility] UNK - Ambulatory Encounter Deborah Bhakhrani Deborah Bhakhrani [facility] UNK - Ambulatory Encounter Deborah Charlesi [facility] UNK - Ambulatory Encounter Deborah Marquez [facility] UNK - Ambulatory Encounter David Bejarano [facility] UNK - Ambulatory Encounter Deborah Marquez Elayne Sarkar [facility] Hyperopia - OUAstigmatism - OUPresbyopia - OU - Ambulatory Encounter Kaitlin Lion [facility] UNK - Ambulatory Encounter David Fletcher [facility] UNK - Ambulatory Encounter David Lion [facility] Depression - Ambulatory Encounter David Bejarano [facility] UNK - Ambulatory Encounter David ColeLogjonathon [facility] UNK - Ambulatory Encounter Cyndienaveed Irene [facility] UNK - Ambulatory Encounter [facility] Ambulatory Encounter David Fletcher [facility] UNK - Ambulatory Encounter David Fletcher [facility] UNK - Ambulatory Encounter David Fletcher [facility] UNK - Ambulatory Encounter David Fletcher [facility] UNK - Ambulatory Encounter Debnaveed Irene [facility] UNK - Ambulatory Encounter David Marcano [facility] Diabetes mellitus, type IIVaccination Against Influenza - Ambulatory Encounter F[facility] Status [facility] Encounter F[facility] Status [facility] Encounter Fax Status [facility] - Ambulatory Encounter Krys [facility] - Ambulatory Encounter David Adkins [facility] Hypogonadism - Ambulatory Encounter David Fletcher [facility] UNK - [facility]Park[facility] - [facility]ulatory Encounter [facility] - Ambulatory Encounter David Marcano Irene [facility] Libido, decreased - Ambulatory Encounter David Fletcher [facility] UNK - Ambulatory Encounter David Marcano [facility] - Ambulatory Encounter Fax Status [facility] - Ambulatory Encounter Fax Status [facility] - Ambulatory Encounter Fax Status [facility] - Ambulatory Encounter [facility] - Ambulatory Encounter Love Chisholm [facility] UNK - Ambulatory Encounter David Fletcher [facility] UNK - Ambulatory Encounter [facility] UNK - Ambulatory Encounter David Fletcher [facility] UNK - Ambulatory Encounter David Fletcher [facility] UNK - Ambulatory Encounter Dvaid Chisholm [facility] Purpura - Ambulatory Encounter David Fletcher [facility] UNK - Ambulatory Encounter David Marcano Irene [facility] UNK - Ambulatory Encounter David Bejarano [facility] UNK - Ambulatory Encounter Krys Irene [facility] UNK - Ambulatory Encounter David Fletcher [facility] UNK - Ambulatory Encounter David Marcano Irene [facility] SmokerVaccination Against Influenza - Ambulatory Encounter David Fletcher [facility] UNK - Ambulatory Encounter David Marcano Irene [facility] Muscle spasm of backBPHHypothyroidismHypertension VITAL SIGNS No Information Available Allergies No Known Allergy Information REASON FOR REFERRAL Start Date - End Date Service - Urology - External - Endocrinology - External RESULTS Date Observation Value Provider Reference Range Interpretation Location uric acid, serum 10.1 mg/dL [facility] 3.7-8.6 High hemoglobin A1C, blood, as % of total hemoglobin 5.6 % [facility] thyroid stimulating hormone, serum 0.188 u[iU]/mL [facility] 0.450-4.500 Low testosterone, total 235 ng/dL [facility] [id number] Low " immature granulocytes, percentage of total cells, blood 1 % [facility] Not Estab. " basophil count, absolute 0.1 x10E3/uL [facility] 0.0-0.2 " Eosinophil Absolute Count 0.3 X10E3/UL [facility] 0.0-0.4 " monocyte count, blood, automated 0.4 X10E3/UL [facility] 0.1-0.9 " lymphocyte count, blood, automated 2.8 X10E3/UL [facility] 0.7-3.1 " Absolute Neutrophils 7.9 X10E3/UL [facility] 1.4-7.0 High " basophils as percent of blood leukocytes 1 % [facility] Not Estab. " eosinophils as percent of blood leukocytes 3 % [facility] Not Estab. " monocytes as percent of blood leukocytes 4 % [facility] Not Estab. " lymphocytes as percent of blood leukocytes 24 % [facility] Not Estab. " neutrophils as percent of blood leukocytes 67 % [facility] Not Estab. " platelet count 189 X10E3/UL [facility] 150-379 " red blood cell distribution width 14.8 % [facility] 12.3-15.4 " mean corpuscular hemoglobin concentration, RBC 35.2 G/DL [facility] 31.5-35.7 " mean corpuscular hemoglobin, RBC 30.5 pg [facility] 26.6-33.0 " mean corpuscular volume, RBC 87 fL [facility] 79-97 " hematocrit, blood 44.3 % [facility] 37.5-51.0 " hemoglobin, blood 15.6 g/dL [facility] 13.0-17.7 " erythrocyte (RBC) count 5.12 X10E6/UL [facility] 4.14-5.80 " leukocyte count, blood 11.7 X10E3/UL [facility] 3.4-10.8 High thyroid stimulating hormone, serum 0.408 u[iU]/mL [facility] 0.450-4.500 Low " immature granulocytes, percentage of total cells, blood 1 % [facility] Not Estab. " basophil count, absolute 0.1 x10E3/uL [facility] 0.0-0.2 " Eosinophil Absolute Count 0.4 X10E3/UL [facility] 0.0-0.4 " monocyte count, blood, automated 0.7 X10E3/UL [facility] 0.1-0.9 " lymphocyte count, blood, automated 3.1 X10E3/UL [facility] 0.7-3.1 " Absolute Neutrophils 7.1 X10E3/UL [facility] 1.4-7.0 High " basophils as percent of blood leukocytes 1 % [facility] Not Estab. " eosinophils as percent of blood leukocytes 4 % [facility] Not Estab. " monocytes as percent of blood leukocytes 6 % [facility] Not Estab. " lymphocytes as percent of blood leukocytes 27 % [facility] Not Estab. " neutrophils as percent of blood leukocytes 61 % [facility] Not Estab. " platelet count 137 X10E3/UL [facility] 150-379 Low " red blood cell distribution width 15.0 % [facility] 12.3-15.4 " mean corpuscular hemoglobin concentration, RBC 35.8 G/DL [facility] 31.5-35.7 High " mean corpuscular hemoglobin, RBC 30.8 pg [facility] 26.6-33.0 " mean corpuscular volume, RBC 86 fL [facility] 79-97 " hematocrit, blood 45.2 % [facility] 37.5-51.0 " hemoglobin, blood 16.2 g/dL [facility] 13.0-17.7 " erythrocyte (RBC) count 5.26 X10E6/UL [facility] 4.14-5.80 " leukocyte count, blood 11.4 X10E3/UL [facility] 3.4-10.8 High HISTORY OF IMMUNIZATIONS Date Vaccine Dose Lot Number Status Fluzone Quadrivalent IM PF 0.5 ML [facility] [id number] [employer] 0.5 mL [id number] completed HISTORY OF MEDICATION USE Medication Instructions Dates Provider Comments PREDNISONE 20 MG ORAL TABLET take 2 tabs By Mouth for first 5 days, finally 1 tab per day last 5 days Adelita Julio ONETOUCH VERIO STRP CHECK BLOOD SUGAR 1 TO 3 TIMES DAILY David Fletcher EZIO COWART LANCETS 33G CHECK BLOOD SUGAR 1 TO 3 TIMES PER DAY David Fletcher IBUPROFEN 800 MG ORAL TABLET 1 by mouth every 8 hours as needed - Adelita Kim COLCHICINE 0.6 MG ORAL CAPSULE take two caps By Mouth x 1, then 1 cap 1 hour later. May repeat 3 days later if needed. - Adelita Kim CHERATUSSIN AC 100-10 MG/5ML ORAL SYRUP 2 teaspoons (10mL) by mouth at bedtime as needed for cough - Adelita Kim METFORMIN HCL 850 MG ORAL TABLET 1 by mouth twice a day David Fletcher ATORVASTATIN CALCIUM 20 MG ORAL TABLET take one tab By Mouth Every Day David Fletcher METOPROLOL SUCC ER 25MG TABLET TAKE 1 TABLET BY MOUTH DAILY David Fletcher AMLODIPINE 10MG TAB TAKE 1 TABLET BY MOUTH DAILY David Fletcher LISINOPRIL 20MG TAB TAKE 1 TABLET BY MOUTH DAILY David Fletcher TAMSULOSIN HCL 0.4 MG ORAL CAPSULE take 2 caps By Mouth Every Day David Fletcher MELOXICAM 15 MG ORAL TABLET take one tab By Mouth Every Day As Needed for pain - Adelita Kim LEVOTHYROXINE SODIUM 25 MCG ORAL TABLET One tab by mouth daily - Adelita Kim CYCLOBENZAPRINE HCL 10 MG ORAL TABLET 1 By Mouth three times a day as needed for muscle spasm - Adelita Kim SOCIAL HISTORY Date Observation Value Provider Exercise Program Referral T Adelita Kim " Weight Management Counseling Provided T Adelita Kim " Nutrition intervention T Adelita Kim " social history reviewed E&M reviewed today Cathi Echavarria " sexual orientation Heterosexual Cathi Echavarria " assessment of health literacy ([facility] 2014 Standards, 3C10) Adequate Cathi Echavarria " smoking status former smoker Cathi Echavarria Exercise Program Referral Talia Fletcher " Weight Management Counseling Provided T Caitlin Fletcher " Nutrition intervention T Iris Chance " drug use, illicit Never Iris Chance " alcohol use Never Iris Chance " social history reviewed E&M reviewed today Caitlin Fletcher " sexual orientation Heterosexual Caitlin Fletcher " is there any chance that you could be ? No Iris Chance " assessment of health literacy ([facility] 2014 Standards, 3C10) Adequate Iris Chance " passive cigarette smoke exposure No Iris Chance " smoking status former smoker Caitlin Fletcher Exercise Program Referral T Deborath Irene " Weight Management Counseling Provided T Debora " Nutrition intervention T Debora " drug use, illicit Never Debora Irene " alcohol use Never Deborath Irene " social history reviewed E&M reviewed today Debora Irene " [facility] " is there any chance that you could be ? No Deborath Irene " assessment of health literacy ([facility] 2014 Standards, 3C10) Adequate Deborath Irene " passive cigarette smoke exposure No Debora Irene " [facility], illicit Never Debora Irene " alcohol use Never Debora Irene " social history reviewed E&M reviewed today Debora [facility] " assessment of health literacy ([facility] 2014 Standards, 3C10) Adequate Deborath Irene " is there any chance that you could be ? No Deborath Irene " sexual orientation Heterosexual Deborath Irene " Exercise Program Referral T Deb Irene " Weight Management Counseling Provided T Deb " Nutrition intervention T Debora " passive cigarette smoke exposure No Debora Irene " smoking status [facility] Referral T Deborath Irene " Weight Management Counseling Provided T Debora Irene " Nutrition intervention T Debora Irene " drug use, illicit Never Deborath Irene " alcohol use Never Deborath Irene " social history reviewed E&M reviewed today Debora Irene " assessment of health literacy ([facility] 2014 Standards, 3C10) Adequate Deborath Irene " is there any chance that you could be ? No Debora Irene " sexual orientation Heterosexual Deborath Irene " passive cigarette smoke exposure No Debora Irene " smoking status former smoker Debora Irene Exercise Program Referral T Deb [facility] " Weight Management Counseling Provided T Deb Irene " Nutrition intervention T Debora Irene " drug use, illicit Never Debora Irene " alcohol use Never Debora Irene " social history reviewed E&M reviewed today Debora [facility] " sexual orientation [facility] " is there any chance that you could be ? No Debora Irene " assessment of health literacy ([facility] 2014 Standards, 3C10) Adequate Debora Irene " passive cigarette smoke exposure No Debora Irene " smoking status [facility] Exercise Program Referral T Deb Irene " Weight Management Counseling Provided T Deb Irene " Nutrition intervention T Deb Irene " drug use, illicit Never Debora Irene " alcohol use Never Debora [facility] " social history reviewed E&M reviewed today [facility] " sexual orientation [facility] " is there any chance that you could be ? No Debora Irene " assessment of health literacy ([facility] 2014 Standards, 3C10) Adequate Debora Irene " passive cigarette smoke exposure No Debora Irene " smoking status [facility] Exercise Program Referral T Caitlin Fletcher " Weight Management Counseling Provided T Caitlin Fletcher " Nutrition intervention T Iris Chance " drug use, illicit Never Iris Chance " alcohol use Never Iris Chance " social history reviewed E&M reviewed today Iris Chance " sexual orientation Heterosexual Iris Chance " is there any chance that you could be ? No Iris Chance " assessment of health literacy ([facility] 2014 Standards, 3C10) Adequate Iris Chance " passive cigarette smoke exposure No Iris Chance " smoking status current every day smoker Iris Chance Exercise Program Referral T Deb Irene " Weight Management Counseling Provided T Deb Irene " Nutrition intervention T Debora Irene " drug use, illicit Never Debora Irene " alcohol use Never Deborath Irene " social history reviewed E&M reviewed [facility] " assessment of health literacy ([facility] 2014 Standards, 3C10) Adequate Debora Irene " is there any chance that you could be ? No Deborath Irene " sexual orientation Heterosexual Deborath Irene " passive cigarette smoke exposure No [facility] " smoking status former [facility] drug use, illicit Never [facility] " alcohol use Never [facility] " social history reviewed E&M reviewed today [facility] " is there any chance that you could be ? No [facility] " sexual orientation Heterosexual [facility] " assessment of health literacy ([facility] 2014 Standards, 3C10) Adequate Deborath Irene " passive cigarette smoke exposure No [facility]flint[facility] " smoking status former sm[facility] " [facility] Ref[facility] " [facility] Management Counseling Provided [facility] " [facility] time of call 12/10/2017 11:02 AM Kaitlin Lion time of call 11/29/2017 9:56 AM Kaitlin Lion Exercise Program [facility] " Weight Management Counseling Provided T [facility] " Nutrition intervention T Debflintstone [facility] " drug use, illicit Never [facility] " alcohol use Never [facility] " social history reviewed E&M reviewed today [facility] " is there any chance that you could be ? No [facility]flintstone [facility] " sexual orientation Heterosexual [facility] " passive cigarette smoke exposure No [facility] " smoking status former smoker [facility] Exercise Program Referral T Caitlin Fletcher " Weight Management Counseling Provided T Caitlin Fletcher " Nutrition intervention T Caitlin Fletcher " drug use, illicit Never Iris Chance " alcohol use Never Iris Chance " social history reviewed E&M reviewed today Iris Chance " sexual orientation Heterosexual Iris Chance " is there any chance that you could be ? No Iris Chance " assessment of health literacy ([facility] 2014 Standards, 3C10) Adequate Iris Chance " smoking status former smoker Iris Chance " passive cigarette smoke exposure No Iris Chance [facility] Ref[facility] " [facility] Counseling [facility] " [facility] " drug use, illicit Never [facility] " alcohol use Never [facility] " smoking status former smoker [facility] " is there any chance that you could be ? No Irene " assessment of health literacy ([facility] 2014 Standards, 3C10) Adequate Irene " sexual orientation Heterosexual [facility] " passive cigarette smoke exposure No [facility] Exercise Program Referral T Irene " Weight Management Counseling Provided T Irene " Nutrition intervention T Irene " drug use, illicit Never Irene " alcohol use Never [facility] " social history reviewed E&M reviewed today fl[facility]stone [facility] " is there any chance that you could be ? No Irene " sexual orientation Heterosexual [facility] " assessment of health literacy ([facility] 2014 Standards, 3C10) Adequate Irene " passive cigarette smoke exposure No [facility] " smoking status current every day smoker [facility] sexual orientation Heterosexual [facility] " sex at Male [facility] " drug use, illicit Never [facility] " alcohol use Never [facility] " smoking status current every day smoker [facility] " is there any chance that you could be ? No Love Chish[facility]m " assessment of health literacy ([facility] 2014 Standards, 3C10) Adequate Love Ch[place]m " passive cigarette smoke exposure No Love Ch[facility]m " Exercise Program Referral T Love Ch[facility]olm " Weight Management Counseling Provided T Love Ch[place]m " Nutrition intervention T [facility] [place] Exercise Program Referral T Irene " Weight Management Counseling Provided T Irene " Nutrition intervention T Irene " drug use, illicit Never Irene " alcohol use Never [facility] " social history reviewed E&M reviewed today [facility] " is there any chance that you could be ? No Irene " passive cigarette smoke exposure No Irene " smoking status current every day smoker [facility] " assessment of health literacy ([facility] 2014 Standards, 3C10) Adequate [facility] Exercise Program Referral T [facility] " Weight Management Counseling Provided T Irene " Nutrition intervention T [facility] " drug use, illicit Never Debth Irene " alcohol use Never [facility] " social history reviewed E&M reviewed today [facility] " is there any chance that you could be ? No [facility] " passive cigarette smoke exposure No [facility] " smoking status current every day smoker [facility] " assessment of health literacy ([facility] 2014 Standards, 3C10) Adequate [facility] drug use, illicit Never [facility] " alcohol use Never [facility] " patient considered to be homeless No [facility] " is there any chance that you could be ? No [facility] " passive cigarette smoke exposure No [facility] " smoking status current every day smoker [facility] " assessment of health literacy ([facility] 2014 Standards, 3C10) Adequate [facility] " Exercise Program Referral T [facility] " Weight Management Counseling Provided T [facility] " Nutrition intervention T [facility] FUNCTIONAL STATUS No Information Available MENTAL STATUS Date Observation Value Provider assessment of mood and affect E&M no depression, anxiety, or agitation Adelita Kim " Generalized Anxiety Disorder Questionnaire - Question 2 0 Cathi Echavarria " Generalized Anxiety Disorder Questionnaire - Question 1 0 Cathi Echavarria assessment of judgment and insight E&M intact David Fletcher " mental status examination: orientation E&M oriented to time, place, and person David Fletcher " assessment of mood and affect E&M no depression, anxiety, or agitation David Fletcher " Generalized Anxiety Disorder Questionnaire - Question 2 0 [facility] " Generalized Anxiety Disorder Questionnaire - Question 1 0 [facility] assessment of judgment and insight E&M intact David Fletcher " mental status examination: orientation E&M oriented to time, place, and person David Fletcher " assessment of mood and affect E&M no depression, anxiety, or agitation David Fletcher " Generalized Anxiety Disorder Questionnaire - Question 2 0 [facility] " Generalized Anxiety Disorder Questionnaire - Question 1 0 [facility] assessment of judgment and insight E&M intact David Fletcher " mental status examination: orientation E&M oriented to time, place, and person David Fletcher " assessment of mood and affect E&M no depression, anxiety, or agitation David Fletcher assessment of judgment and insight E&M intact David Rosi Fletcher " mental status examination: orientation E&M oriented to time, place, and person David Fletcher " assessment of mood and affect E&M no depression, anxiety, or agitation David Fletcher " Generalized Anxiety Disorder Questionnaire - Question 2 0 Krys Irene " Generalized Anxiety Disorder Questionnaire - Question 1 0 Krys Irene assessment of judgment and insight E&M intact David Rosi Fletcher " mental status examination: orientation E&M oriented to time, place, and person David Fletcher " assessment of mood and affect E&M no depression, anxiety, or agitation David Fletcher " Generalized Anxiety Disorder Questionnaire - Question 2 0 Krys Irene " Generalized Anxiety Disorder Questionnaire - Question 1 0 [facility] assessment of judgment and insight E&M intact David Rosi Fletcher " mental status examination: orientation E&M oriented to time, place, and person David Fletcher " assessment of mood and affect E&M no depression, anxiety, or agitation David Fletcher " Generalized Anxiety Disorder Questionnaire - Question 2 0 Caitlni Fletcher " Generalized Anxiety Disorder Questionnaire - Question 1 0 Caitlin Fletcher assessment of judgment and insight E&M intact David Rosi Fletcher " mental status examination: orientation E&M oriented to time, place, and person David Fletcher " assessment of mood and affect E&M no depression, anxiety, or agitation David Fletcher assessment of judgment and insight E&M intact David Rosi Fletcher " mental status examination: orientation E&M oriented to time, place, and person David Fletcher " assessment of mood and affect E&M no depression, anxiety, or agitation David Fletcher " Generalized Anxiety Disorder Questionnaire - Question 2 0 Krys Irene " Generalized Anxiety Disorder Questionnaire - Question 1 0 [facility] assessment of judgment and insight E&M intact David Fletcher " mental status examination: orientation E&M oriented to time, place, and person David Fletcher " assessment of mood and affect E&M no depression, anxiety, or agitation David Fletcher assessment of judgment and insight E&M intact David Fletcher " mental status examination: orientation E&M oriented to time, place, and person David Fletcher " assessment of mood and affect E&M no depression, anxiety, or agitation David D Chance assessment of judgment and insight E&M intact David D Chance " mental status examination: orientation E&M oriented to time, place, and person David D Chance " assessment of mood and affect E&M no depression, anxiety, or agitation David D Chance " Generalized Anxiety Disorder Questionnaire - Question 2 0 Krys Irene " Generalized Anxiety Disorder Questionnaire - Question 1 0 [facility] assessment of judgment and insight E&M intact David D Chance " mental status examination: orientation E&M oriented to time, place, and person David D Chance " assessment of mood and affect E&M no depression, anxiety, or agitation David D Chance " Generalized Anxiety Disorder Questionnaire - Question 2 0 Krys Irene " Generalized Anxiety Disorder Questionnaire - Question 1 0 [facility] assessment of judgment and insight E&M intact David D Chance " mental status examination: orientation E&M oriented to time, place, and person David D Chance " assessment of mood and affect E&M no depression, anxiety, or agitation David D Chance " Generalized Anxiety Disorder Questionnaire - Question 2 0 Love Chisholm " Generalized Anxiety Disorder Questionnaire - Question 1 0 [facility] [place] assessment of judgment and insight E&M intact David D Chance " mental status examination: orientation E&M oriented to time, place, and person David D Chance " assessment of mood and affect E&M no depression, anxiety, or agitation David D Chance " Generalized Anxiety Disorder Questionnaire - Question 2 0 Krys Irene " Generalized Anxiety Disorder Questionnaire - Question 1 0 [facility] assessment of judgment and insight E&M intact David D Chance " mental status examination: orientation E&M oriented to time, place, and person David D Chance " assessment of mood and affect E&M no depression, anxiety, or agitation David D Chance " Generalized Anxiety Disorder Questionnaire - Question 2 0 Krys Irene " Generalized Anxiety Disorder Questionnaire - Question 1 0 [facility] of judgment and insight E&M intact Davdi D Chance " mental status examination: orientation E&M oriented to time, place, and person David D Chance " assessment of mood and affect E&M no depression, anxiety, or agitation David D Chance " Generalized Anxiety Disorder Questionnaire - Question 2 0 [facility] Irene " Generalized Anxiety Disorder Questionnaire - Question 1 0 [facility] MEDICAL EQUIPMENT No Information Available FAMILY HISTORY No Information Available INSURANCE PROVIDERS No Information Available ADVANCE DIRECTIVES No Information Available TREATMENT PLAN Date Name Microalb/Creat Ratio, Randm Ur Hemoglobin A1c Lipid Panel Comp. Metabolic Panel (14) TSH+T4+T3H Uric Acid, Serum TSH Testosterone,Free and Total CBC With Differential/Platelet CBC With Differential/Platelet TSH - - - First Vx - Ix admin for Medicare patients Fluzone Quadrivalent IM Prefilled Syringe 0.5 mL (PF) Ofc Vst, Est Level IV Vaccines Ordered - Print Consent/Declination Forms Est Patient Exp Problem - 49342 Est Patient Exp Problem - 57398 Est Patient Exp Problem - 27764 Est Patient Exp Problem - 09672 Ear Irrigation Est Patient Exp Problem - 37377 Est Patient Exp Problem - 56245 Est Patient Exp Problem - 78308 Est Patient Exp Problem - 33243 Est Patient Exp Problem - 00890 New Patient Intermediate Opth - 51876 Spherocyl, bif, plano to +/- 4.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 sphere, 0.12 to 2.00d cyl, per lens Frames, purchases Est Patient Exp Problem - 68214 Diabetes Education Vision Est Patient Exp Problem - 29165 HEMOGLOBIN A1C - In House INFLUENZA VACCINE QUADRIVALENT 3 YRS PLUS IM Admin of Vaccine - Injection - 1 Est Patient Exp Problem - 46537 Est Patient Exp Problem - 42948 Est Patient Detailed - 91103 Est Patient Exp Problem - 08965 INFLUENZA VACCINE QUADRIVALENT 3 YRS PLUS IM Admin of Vaccine - Injection - 1 Est Patient Detailed - 28189 New Patient Comprehensive - 70704 HISTORY OF PROCEDURES Procedure Date Procedure Name Provider Procedure Notes Status First Vx - Ix admin for Medicare patients Adelita Kim completed Fluzone Quadrivalent IM Prefilled Syringe 0.5 mL (PF) Adelita Kim completed Vaccines Ordered - Print Consent/Declination Forms Adelita Kim completed Ear Irrigation David Fletcher pt tolerated procedure well; hearing improved afterwards completed New Patient Intermediate Opth - 29130 Deborah Marquez completed Spherocyl, bif, plano to +/- 4.00d sphere, 0.12 to 2.00d cyl, per lens [employer] completed Frames, purchases [employer] Frame #[id number] (FFS) Pd 65.00 completed HEMOGLOBIN A1C - In House David Fletcher completed GOALS No Information Available HEALTH CONCERNS No Information Available
--- OUTSIDE RECORDS SUMMARY | 2019-03-15 06:33 | XMS REPORT ---
Author Author Admin, [place] Organization Unknown Address Unknown Phone Unavailable PROBLEMS [...] Provider Location Encounter Diagnosis - Ambulatory Encounter Adelita Kim LinkLogjonathon [facility] UNK - Ambulatory Encounter Love Chisholm [facility] UNK - [facility] - [facility]ulatory Encounter Adelitastacy Kim Adelitastacy Kim Love Echavarria [facility] Acute bronchitisElevated creatinineLow TSH - Ambulatory Encounter David Jerry Neptali [facility] UNK - Ambulatory Encounter David Fletcher [facility] UNK - Ambulatory Encounter [facility] Skin rash - Ambulatory Encounter [facility] En[facility] - Ambulatory Encounter David Fletcher LinkLogic [facility] UNK - Ambulatory Encounter David Fletcher [facility] UNK - Ambulatory Encounter David Fletcher [facility] UNK - Ambulatory Encounter David Marcano [facility] Gout - Ambulatory Encounter David ColeLogjonathon [facility] UN[place] - Ambulatory Encounter David ColeLogjonathon [facility] UN[place] - Ambulatory Encounter David Fletcher [facility] UNK - Ambulatory Encounter David Marcano [facility] Acute bronchitis - Ambulatory Encounter David ColeLogjonathon [facility] UNK - Ambulatory Encounter David Fletcher [facility] UNK - Ambulatory Encounter David Marcano [facility] UNK - Ambulatory Encounter Fax Status Link[facility]ic [facility] UNK - Ambulatory Encounter Fax Status LinkLogic [facility] UNK - Ambulatory Encounter Fax Status LinkLogic [facility] UNK - Ambulatory Encounter David Fletcher [facility] UNK - Ambulatory Encounter David Alejandre Irene [facility] BPHCerumen impaction - Ambulatory Encounter David Fletcher [facility] UNK - Ambulatory Encounter David Marcano Irene [facility] UNK - Ambulatory Encounter David Fletcher [facility] UNK - Ambulatory Encounter David Fletcher [facility] UNK - Ambulatory Encounter David Fletcher [facility] Pneumonia - Ambulatory Encounter David ColeLogjonathon [facility] UNK - Ambulatory Encounter David Fletcher [facility] UNK - Ambulatory Encounter David Marcano Irene [facility] URICough - Ambulatory Encounter David ColeLogjonathon [facility] UNK - Ambulatory Encounter Krys Irene [facility] UNK - Ambulatory Encounter David Fletcher [facility] UNK - Ambulatory Encounter David Fletcher [facility] UNK - Ambulatory Encounter David ColeLogjonathon [facility] UNK - Ambulatory Encounter Jessa Reyes [facility] UNK - Ambulatory Encounter David Fletcher [facility] UNK - Ambulatory Encounter David Ageesharleneharitha [facility] UNK - Ambulatory Encounter Kaitlin Ayad [facility] UNK - Ambulatory Encounter David Fletcher [facility] UNK - Ambulatory Encounter Deborah Bhakhrani Deborah Bhakhrani [facility] UNK - Ambulatory Encounter David Bejarano [facility] UNK - Ambulatory Encounter Criss Esparza [facility] UNK - Ambulatory Encounter Deborah Bhakhrani Deborah Suarezhrani [facility] UNK - Ambulatory Encounter Deborah Combsakhrani Deborah Combsakhrani [facility] UNK - Ambulatory Encounter Deborah Suarezhrani Deborah Combsakhrani [facility] UNK - Ambulatory Encounter Deborha Suarezhrani [facility] UNK - Ambulatory Encounter David Bejarano [facility] UNK - Ambulatory Encounter Deborah Sarkar [facility] Hyperopia - OUAstigmatism - OUPresbyopia - OU - Ambulatory Encounter Kaitlin Lion [facility] Public Health Services UNK - Ambulatory Encounter David Fletcher [facility] UNK - Ambulatory Encounter [facility]University [facility] Center[facility] Depression - Ambulatory Encounter David ColeLogjonathon [facility] UNK - Ambulatory Encounter David Bejarano [facility] UNK - Ambulatory Encounter Krys Irene [facility] UNK - Ambulatory Encounter David Fletcher [facility] UNK - Ambulatory Encounter David Fletcher [facility] UNK - Ambulatory Encounter David Fletcher [facility] UNK - Ambulatory Encounter David Fletcher [facility] UNK - Ambulatory Encounter David Fletcher [facility] UNK - Ambulatory Encounter Debnaveed [facility] - Ambulatory Encounter David Fletcher [facility] Diabetes mellitus, type IIVaccination Against Influenza - Ambulatory Encounter Fax Status [facility] - Ambulatory Encounter Fax Status [facility] - Ambulatory Encounter F[facility] Status [facility] En[facility] Krys [facility] - Ambulatory Encounter David Adkins [facility] Hypogonadism - Ambulatory Encounter David Fletcher [facility] UNK - Ambulatory Encounter [facility] UN[facility] - Ambulatory Encounter David [facility] UNK - Ambulatory Encounter David Ageesulphurharitha [facility] Libido, decreased - Ambulatory Encounter David [facility] UNK - Ambulatory Encounter David Ageeoraharitha Irene [facility] UNK - Ambulatory Encounter Fax Status LinkLogic [facility] UNK - Ambulatory Encounter Fax Status [facility] - Ambulatory Encounter Fax Status [facility] UNK - Ambulatory Encounter David Fletcher [facility] UNK - Ambulatory Encounter Love Chisholm [facility] UNK - Ambulatory Encounter David Fletcher [facility] UNK - Ambulatory Encounter David Bejarano [facility] UNK - Ambulatory Encounter David Fletcher [facility] UNK - Ambulatory Encounter David Fletcher [facility] UNK - Ambulatory Encounter David Alejandre [facility] Purpura - Ambulatory Encounter David Fletcher [facility] UNK - Ambulatory Encounter David Marcano Irene [facility] UNK - Ambulatory Encounter David ColeAvelinojonathon [facility] UNK - Ambulatory Encounter Krys Irene [facility] UNK - Ambulatory Encounter David Fletcher [facility] UNK - Ambulatory Encounter David Marcano Irene [facility] SmokerVaccination Against Influenza - Ambulatory Encounter David Fletcher [facility] UNK - Ambulatory Encounter David Marcano Irene [facility] Muscle spasm of backBPHHypothyroidismHypertension VITAL SIGNS No Information Available Allergies No Known Allergy Information REASON FOR REFERRAL Start Date - End Date Service - Endocrinology - External RESULTS Date Observation Value Provider Reference Range Interpretation Location uric acid, serum 10.1 mg/dL LinkLogic 3.7-8.6 High hemoglobin A1C, blood, as % of total hemoglobin 5.6 % [facility] thyroid stimulating hormone, serum 0.188 u[iU]/mL LinkLogic [...] Status Fluzone Quadrivalent IM PF 0.5 ML [facility] [address]-10 San[employer]i Pasteur 0.5 mL [id number] completed HISTORY OF MEDICATION USE Medication Instructions Dates Provider Comments PREDNISONE 20 MG ORAL TABLET take 2 tabs By Mouth for first 5 days, finally 1 tab per day last 5 days Adelita Kim ONETOUCH VERIO STRP CHECK BLOOD SUGAR 1 TO 3 TIMES DAILY David DAVISGEREMIAS DELICA LANCETS 33G CHECK BLOOD SUGAR 1 [...] Cathi Echavarria " assessment of health literacy ([facility] 2014 Standards, 3C10) Adequate Cathi Echavarria " smoking status former smoker Cathi Echavarria Exercise Program Referral T Caitlin Fletcher " [...] Iris Chance " assessment of health literacy ([facility] 2014 Standards, 3C10) Adequate Iris Chance " passive cigarette smoke exposure No Iris Chance " smoking status former smoker Caitlin Fletcher Exercise Program Referral T Deborath Irene " Weight Management Counseling Provided T Deborath Irene " Nutrition intervention T Deborath Irene " drug use, illicit Never Deborath Irene " alcohol use Never Deborath Irene " social history reviewed E&M reviewed today Deborath Irene " sexual orientation Heterosexual Deborath Irene " is there any chance that you could be ? No Deborath Irene " assessment of health literacy ([facility] 2014 Standards, 3C10) Adequate Deborath Irene " passive cigarette smoke exposure No Deborath Irene " smoking status [facility] drug use, illicit Never Deborath Irene " alcohol use Never Deborath Irene " social history reviewed E&M reviewed today Deborath Irene " assessment of health literacy ([facility] 2014 Standards, 3C10) Adequate Deborath Irene " is there any chance that you could be ? No Deborath Irene " sexual orientation Heterosexual Deborath Irene " Exercise Program Referral T Deborath Irene " Weight Management Counseling Provided T Deborath Irene " Nutrition intervention T Deborath Irene " passive cigarette smoke exposure No Deborath Irene " smoking status former smoker Deborath Irene Exercise Program Referral T Deborath Irene " Weight Management Counseling Provided T Deborath Irene " Nutrition intervention T Deborath Irene " drug use, illicit Never Deborath Irene " alcohol use Never Deborath Irene " social history reviewed E&M reviewed today Deborath Irene " assessment of health literacy ([facility] 2014 Standards, 3C10) Adequate Deborath Irene " is there any chance that you could be ? No Deborath Irene " sexual orientation Heterosexual Deborath Irene " passive cigarette smoke exposure No Debora Irene " [facility] T Debsulphur [facility] " Weight Management Counseling Provided T Deb Irene " Nutrition intervention T Deb Irene " drug use, illicit Never Debora Irene " alcohol use Never Debora Irene " social history reviewed E&M reviewed today Debsulphur [facility] " sexual orientation Heterosexual [facility] " is there any chance that you could be ? No Debora Irene " assessment of health literacy ([facility] 2014 Standards, 3C10) Adequate Debora Irene " passive cigarette smoke exposure No Debora Irene " [facility] status [facility] Referral T Deb [facility] " Weight Management Counseling Provided T Deb [facility] " Nutrition intervention T Deb Irene " drug use, illicit Never Debora Irene " alcohol use Never Debora [facility] " social history reviewed E&M reviewed today Debsulphur [facility] " sexual orientation Heterosexual [facility] " is there any chance that you could be ? No Deb Irene " assessment of health literacy ([facility] 2014 Standards, 3C10) Adequate Debora Irene " passive cigarette smoke exposure No Debora Irene " [facility] status [facility] Referral T Caitlin Fletcher [...] Iris Chance " assessment of health literacy ([facility] 2014 Standards, 3C10) Adequate Iris Chance " passive cigarette smoke exposure No Iris Chance " smoking status current every day smoker Iris Chance Exercise Program Referral T Deb Irene " Weight Management Counseling Provided T Deb Irene " Nutrition intervention T Deb Irene " drug use, illicit Never Debora Irene " alcohol use Never Debora Irene " social history reviewed E&M reviewed today Deb [facility] " assessment of health literacy ([facility] 2014 Standards, 3C10) Adequate Debora Irene " is there any chance that you could be ? No Debsulphur [facility] " sexual orientation [facility] " passive cigarette smoke exposure [facility] " smoking status former [facility] drug use, illicit [facility] " alcohol use [facility] " social history reviewed E&M reviewed [facility] " is there any chance that you could be ? [facility] " sexual orientation Heterosexual [facility] " assessment of health literacy ([facility] 2014 Standards, 3C10) Adequate [facility] " passive cigarette smoke exposure No Debsulphur [facility] " smoking status [facility] " [facility] Ref[facility] " [facility] " [facility] time of call 12/10/2017 11:02 AM Kaitlin Lion time of call 11/29/2017 9:56 AM Kaitlin Lion Exercise [facility] " [facility] " [facility] " drug use, illicit Never [facility] " alcohol use Never [facility] " social history reviewed E&M reviewed today [facility] " is there any chance that you could be ? [facility] " sexual orientation Heterosexual [facility] " passive cigarette smoke exposure No [facility] " smoking status former sm[facility] Exercise Program Referral T Iris Chance " Weight Management Counseling Provided T Iris Chance " Nutrition intervention T Iris Chance " drug use, illicit Never Iris Chance " alcohol use Never Iris Chance " social history reviewed E&M reviewed today Iris Chance " sexual orientation Heterosexual Iris Chance " is there any chance that you could be ? No Iris Chance " assessment of health literacy ([facility] 2014 Standards, 3C10) Adequate Iris Chance " smoking status former smoker Iris Chance " passive cigarette smoke exposure No Iris Chance [facility] " [facility] " [facility] " drug use, illicit Never [facility] " alcohol use Never Deborath [facility] " smoking status former smoker [facility] " is there any chance that you could be ? No Irene " assessment of health literacy ([facility] 2014 Standards, 3C10) Adequate [facility] " sexual orientation Heterosexual [facility] " passive cigarette smoke exposure No [facility] Exercise Program Referral T [facility] " Weight Management Counseling Provided T [facility] " Nutrition intervention T Irene " drug use, illicit Never [facility] " alcohol use Never sulphur [facility] " social history reviewed E&M reviewed today [facility] " is there any chance that you could be ? No [facility] " sexual orientation Heterosexual [facility] " assessment of health literacy ([facility] 2014 Standards, 3C10) Adequate [facility] " passive cigarette smoke exposure No sulphur [facility] " smoking status current every day smoker [facility] sexual orientation Heterosexual Love Chisholm " sex at Male Love Chisholm " drug use, illicit Never Love Chisholm " alcohol use Never Love Chisholm " smoking status current every day smoker Love Chisholm " is there any chance that you could be ? No Love Chisholm " assessment of health literacy ([facility] 2014 Standards, 3C10) Adequate Love Chisholm " passive cigarette smoke exposure No Love Chisholm " Exercise Program Referral T Love Chisholm " Weight Management Counseling Provided T Love Chisholm " Nutrition intervention T Love Chisholm Exercise Program Referral T [facility] " Weight Management Counseling Provided T [facility] " Nutrition intervention T [facility] " drug use, illicit Never sulphur [facility] " alcohol use Never sulphur [facility] " social history reviewed E&M reviewed today [facility] " is there any chance that you could be ? No [facility] " passive cigarette smoke exposure No [facility] " smoking status current every day smoker [facility] " assessment of health literacy ([facility] 2014 Standards, 3C10) Adequate [facility] Exercise Program Referral T sulphur [facility] " Weight Management Counseling Provided T Irene " Nutrition intervention T ados " drug use, illicit Never sulphur Irene " alcohol use Never sulphur [facility] " social history reviewed E&M reviewed today [facility] " is there any chance that you could be ? No [facility] " passive cigarette smoke exposure No [facility] " smoking status current every day smoker [facility] " assessment of health literacy ([facility] 2014 Standards, 3C10) Adequate [facility] drug use, illicit Never [facility] " alcohol use Never [facility] " patient considered to be homeless No [facility] " is there any chance that you could be ? No [facility] " passive cigarette smoke exposure No [facility] " smoking status current every day smoker [facility] " assessment of health literacy ([facility] 2014 Standards, 3C10) Adequate [facility] " Exercise Program Referral T sulphur Irene " Weight Management Counseling Provided T sulphur Irene " Nutrition intervention T sulphur [facility] FUNCTIONAL STATUS No Information Available MENTAL STATUS [...] Anxiety Disorder Questionnaire - Question 2 0 sulphur Irene " Generalized Anxiety Disorder Questionnaire - Question 1 0 [facility] assessment of judgment and insight E&M intact David Fletcher " mental status examination: orientation E&M oriented to time, place, and person David Fletcher " assessment of mood and affect E&M no depression, anxiety, or agitation David Fletcher " Generalized Anxiety Disorder Questionnaire - Question 2 0 Cyndiesulphur [facility] " Generalized Anxiety Disorder Questionnaire - Question 1 0 [facility] assessment of judgment and insight E&M intact David Fletcher " mental status examination: orientation E&M oriented to time, place, and person David Aranda Chance " assessment of mood and affect [...] Anxiety Disorder Questionnaire - Question 1 0 [facility] Teto assessment of judgment and insight E&M intact David Fletcher " mental status examination: orientation E&M oriented to time, place, and person David Rosi Fletcher " assessment of mood and affect E&M no depression, anxiety, or agitation David Fletcher " Generalized Anxiety Disorder Questionnaire - Question 2 0 Krys Irene " Generalized Anxiety Disorder Questionnaire - Question 1 0 [facility] assessment of judgment and insight E&M intact David Fletcher " mental status examination: orientation E&M oriented to time, place, and person David Rosi Fletcher " assessment of mood and affect E&M no depression, anxiety, or agitation David Fletcher " Generalized Anxiety Disorder Questionnaire - Question 2 0 Caitlin Fletcher " Generalized Anxiety Disorder Questionnaire - Question 1 0 Caitlin Fletcher assessment of judgment and insight E&M intact David Aranda Chance " mental status examination: orientation E&M oriented to time, place, and person David Rosi Fletcher " assessment of mood and affect E&M no depression, anxiety, or agitation David Fletcher assessment of judgment and insight E&M intact David Rosi Fletcher " mental status examination: orientation E&M oriented to time, place, and person David Rosi Fletcher " assessment of mood and affect E&M no depression, anxiety, or agitation David Fletcher " Generalized Anxiety Disorder Questionnaire - Question 2 0 Jesusita Teto " Generalized Anxiety Disorder Questionnaire - Question 1 0 [facility] Irene assessment of judgment and insight E&M intact David Rosi Chance " mental status examination: orientation E&M oriented to time, place, and person David Rosi Fletcher " assessment of mood and affect [...] Anxiety Disorder Questionnaire - Question 2 0 [facility] " Generalized Anxiety Disorder Questionnaire - Question 1 0 [facility] assessment of judgment and insight E&M intact David D Chance " mental status examination: orientation E&M oriented to time, place, and person David D Chance " assessment of mood and affect E&M no depression, anxiety, or agitation David D Chance " Generalized Anxiety Disorder Questionnaire - Question 2 0 [facility] " Generalized Anxiety Disorder Questionnaire - Question 1 0 [facility] assessment of judgment and insight E&M intact [...] Anxiety Disorder Questionnaire - Question 2 0 [facility] " Generalized Anxiety Disorder Questionnaire - Question 1 0 [facility] assessment of judgment and insight E&M intact David D Chance " mental status examination: orientation E&M oriented to time, place, and person David D Chance " assessment of mood and affect E&M no depression, anxiety, or agitation David D Chance " Generalized Anxiety Disorder Questionnaire - Question 2 0 [facility] " Generalized Anxiety Disorder Questionnaire - Question 1 0 [facility] assessment of judgment and insight E&M intact David D Chance " mental status examination: orientation E&M oriented to time, place, and person David D Chance " assessment of mood and affect E&M no depression, anxiety, or agitation David D Chance " Generalized Anxiety Disorder Questionnaire - Question 2 0 Krys Irene " Generalized Anxiety Disorder Questionnaire - Question 1 0 Jesusitaharitha Teto MEDICAL EQUIPMENT No Information Available FAMILY HISTORY [...] Consent/Declination Forms Est Patient Exp Problem - 57288 Est Patient Exp Problem - 06110 Est Patient Exp Problem - 72249 Est Patient Exp Problem - 09107 Ear Irrigation Est Patient Exp Problem - 33027 Est Patient Exp Problem - 28711 Est Patient Exp Problem - 06375 Est Patient Exp Problem - 64921 Est Patient Exp Problem - 20114 New Patient Intermediate Opth - 56061 Spherocyl, bif, plano to +/- 4.00d sphere, 0.12 to 2.00d cyl, per lens Frames, purchases Est Patient Exp Problem - 56547 Diabetes Education Vision Est Patient Exp Problem - 89584 HEMOGLOBIN A1C - In House INFLUENZA VACCINE QUADRIVALENT 3 YRS PLUS IM Admin of Vaccine - Injection - 1 Est Patient Exp Problem - 78508 Est Patient Exp Problem - 73889 Est Patient Detailed - 80968 Est Patient Exp Problem - 14540 INFLUENZA VACCINE QUADRIVALENT 3 YRS PLUS IM Admin of Vaccine - Injection - 1 Est Patient Detailed - 94245 New Patient Comprehensive - 12597 HISTORY OF PROCEDURES Procedure Date Procedure Name Provider Procedure Notes Status First Vx - Ix admin for Medicare patients Adelita Kim completed Fluzone Quadrivalent IM Prefilled Syringe 0.5 mL (PF) Adelita Kim completed Vaccines Ordered - Print Consent/Declination Forms Adelita Kim completed Ear Irrigation David Fletcher pt tolerated procedure well; hearing improved afterwards completed New Patient Intermediate Opth - 82814 [facility] completed Spherocyl, bif, plano to +/- 4.00d sphere, 0.12 to 2.00d cyl, per lens Criss Esparza completed Frames, purchases [employer] Frame #[id number] (FFS) Pd 65.00 completed HEMOGLOBIN A1C - In House David Fletcher completed GOALS No Information Available HEALTH CONCERNS No Information Available
--- OUTSIDE RECORDS SUMMARY | 2019-03-15 06:34 | XMS REPORT ---
Author Author Admin, [employer] Organization Unknown Address Unknown Phone Unavailable PROBLEMS [...] Encounter Diagnosis - Ambulatory Encounter Adelita Kim [facility] UNK - Ambulatory Encounter Adelitastacy Chisholm [facility] UNK - Ambulatory Encounter Adelita Kohlibeen [facility] UNK - Ambulatory Encounter Adelita Kohlibeen [facility] UNK - Ambulatory Encounter Love [facility] - Ambulatory Encounter [facility] UN[facility] - Ambulatory Encounter Adelita Blairasia Echavarria [facility] Acute bronchitisElevated creatinineLow TSH - Ambulatory Encounter David Acuñaatius [facility] UNK - Ambulatory Encounter David Fletcher [facility] UNK [facility] Ambulatory Encounter [facility] Skin rash - Ambulatory Encounter David Fletcher [facility] UNK - Ambulatory Encounter David Fletcher [facility] UNK - Ambulatory Encounter David CoelLogjonathon [facility] UNK - Ambulatory Encounter David Fletcher [facility] UNK - Ambulatory Encounter David Fletcher [facility] UNK - Ambulatory Encounter David Irene [facility] Gout - Ambulatory Encounter David Bejarano [facility] UNK - Ambulatory Encounter David Fletcher LinkLogjonathon [facility] UNK - Ambulatory Encounter David Fletcher [facility] UNK - Ambulatory Encounter David Marcano [facility] Acute bronchitis - Ambulatory Encounter David Fletcher [facility] UNK - Ambulatory Encounter David Fletcher [facility] UNK - Ambulatory Encounter David Marcano Irene [facility] UNK - Ambulatory Encounter Fax Status [facility] UNK - Ambulatory Encounter Fax Status [facility] UNK - Ambulatory Encounter Fax Status [facility] UNK - Ambulatory Encounter David Fletcher [facility] UNK - Ambulatory Encounter David Alejandre Irene [facility] BPHCerumen impaction - Ambulatory Encounter David Fletcher [facility] UNK - Ambulatory Encounter David Marcano [facility] UNK - Ambulatory Encounter David Fletcher [facility] UNK - Ambulatory Encounter David Fletcher [facility] UNK - Ambulatory Encounter David Fletcher [facility] Pneumonia - Ambulatory Encounter David ColeLogjonathon [facility] UNK - Ambulatory Encounter David [facility] UNK - Ambulatory Encounter David Ageesharleneharitha Irene [facility] URICough - Ambulatory Encounter David Fletcher LinkLogjonathon [facility] UNK - Ambulatory Encounter Krys Irene [facility] UNK - Ambulatory Encounter David Fletcher [facility] UNK - Ambulatory Encounter David Fletcher [facility] UNK - Ambulatory [facility] UNK - Ambulatory Encounter Jessa Calhounarra [facility] UNK - Ambulatory Encounter David Fletcher [facility] UNK - Ambulatory Encounter David Fletcher Jesusitaharitha Irene [facility] UNK - Ambulatory Encounter Kaitlin Lion [facility] UNK - Ambulatory Encounter David Fletcher [facility] UNK - Ambulatory Encounter Deborah Bhakhrani Deborah Bhakhrani [facility] UNK - Ambulatory Encounter David Fletcher LinkLogjonathon [facility] UNK - Ambulatory Encounter Criss Esparza [...] Ambulatory Encounter David Bejarano [facility] UNK - Ambulatory Encounter Deborah Bhakhrani Deborah Bhakhrani Elayne Sarkar [facility] Hyperopia - OUAstigmatism - OUPresbyopia - OU - Ambulatory Encounter Kaitlin Lion [facility] Public Health Services UNK - Ambulatory Encounter David Fletcher [facility] UNK - Ambulatory Encounter David Marcano Irene [facility] Depression - Ambulatory Encounter David Bejarano [facility] UNK - Ambulatory Encounter David Bejarano [facility] UNK - Ambulatory Encounter Krys Irene [facility] UNK - Ambulatory Encounter David Fletcher [facility] UNK - Ambulatory Encounter David Fletcher [facility] UNK - Ambulatory Encounter David Fletcher [facility] UNK - Ambulatory Encounter David Fletcher [facility] UNK - Ambulatory Encounter David Fletcher [facility] UNK - Ambulatory Encounter Cyndiesharleneharitha Irene [facility] UNK - Ambulatory Encounter David Fletcher [facility] Diabetes mellitus, type IIVaccination Against Influenza - Ambulatory Encounter Fax Status [facility] UNK - Ambulatory Encounter Fax Status [facility] UNK - Ambulatory Encounter Fax Status [facility] UNK - Ambulatory Encounter Krys Irene [facility] UNK - Ambulatory Encounter David Adkins [facility] Hypogonadism - Ambulatory Encounter David Fletcher [facility] UNK - Ambulatory En[facility] Marcano Irene [facility] UNK - Ambulatory Encounter David Fletcher [facility] UNK - Ambulatory Encounter David Marcano Irene [facility] Libido, decreased - Ambulatory Encounter David Fletcher [facility] UNK - Ambulatory Encounter David Marcano Irene [facility] UNK - Ambulatory Encounter Fax Status [facility] UNK - Ambulatory Encounter Fax Status [facility] UNK - Ambulatory Encounter Fax Status [facility] UNK - Ambulatory Encounter David Fletcher [facility] UNK - Ambulatory Encounter Love Chisholm [facility] UNK - Ambulatory Encounter David Fletcher [facility] UNK - Ambulatory Encounter David Fletcher LinkLogjonathon [facility] UNK - Ambulatory Encounter David Fletcher [facility] UNK - Ambulatory Encounter David Fletcher [facility] UNK - Ambulatory Encounter David Alejandre Teto Chisholm [facility] Purpura - Ambulatory Encounter David Fletcher [facility] UNK - Ambulatory Encounter David Marcano Irene [facility] UNK - Ambulatory Encounter David ColeLogjonathon [facility] UNK - Ambulatory Encounter Krys Irene [facility] UNK - Ambulatory Encounter David Fletcher [facility] UNK - Ambulatory Encounter David Marcano Irene [facility] SmokerVaccination Against Influenza - Ambulatory Encounter David D Chance David D Chance [facility] UNK - Ambulatory Encounter David Mcharitha Irene [facility] Muscle spasm of backBPHHypothyroidismHypertension VITAL SIGNS No Information Available Allergies No Known Allergy Information REASON FOR REFERRAL Start Date - End Date Service - Endocrinology - External RESULTS Date Observation Value Provider Reference Range Interpretation Location microalbumin/creatinine ratio, urine 17.8 MG/G CREAT [facility] 0.0-30.0 " microalbumin/total urine volume 24.0 mg/L [facility] Not Estab. " creatinine, random, urine 135.2 mg/dL [facility] Not Estab. uric acid, serum 10.1 mg/dL [facility] 3.7-8.6 High hemoglobin A1C, blood, as % of total hemoglobin 5.6 % JesusitaVibra Long Term Acute Care HospitalIrene thyroid stimulating hormone, serum 0.188 u[iU]/mL [employer] [...] Status Fluzone Quadrivalent IM PF 0.[address] [facility] [id number] [employer]i Pasteur 0.5 mL [id number] completed HISTORY OF MEDICATION USE Medication Instructions Dates Provider Comments HYDROCORTISONE 2.5 % EXTERNAL CREAM apply to affected area twice a day Adelita Kim PREDNISONE 20 MG ORAL TABLET take 2 tabs By Mouth for first 5 days, finally 1 tab per day last 5 days Adelita Kim ONETOUCH VERIO STRP CHECK BLOOD SUGAR 1 TO 3 TIMES DAILY David DAVISUCH DELICA LANCETS 33G CHECK BLOOD SUGAR 1 [...] One tab by mouth daily - Adelita Julio CYCLOBENZAPRINE HCL 10 MG ORAL TABLET 1 By Mouth three times a day as needed for muscle spasm - Adelita Kim SOCIAL HISTORY Date Observation Value Provider Exercise Program Referral T Adelitastacy Kim " Weight Management Counseling Provided T Adelitastacy Kim " Nutrition intervention T Adelita Julio " social history reviewed E&M reviewed today Cathi Ehcavarria " sexual orientation Heterosexual Cathi Leny Jericho " assessment of health literacy ([facility] 2014 Standards, 3C10) Adequate Cathi Echavarria " [...] Iris Chance " assessment of health literacy ([facility] 2014 Standards, 3C10) Adequate Iris Chance " passive cigarette smoke exposure No Iris Chance " smoking status former smoker Caitlin Fletcher Exercise Program Referral T Debnaveed Irene " Weight Management Counseling Provided T Debora Irene " Nutrition intervention T Debora Irene " drug use, illicit Never Deborath Irene " alcohol use Never Deborath Irene " social history reviewed E&M reviewed today Deborath Irene " sexual orientation Heterosexual Deborath Irene " is there any chance that you could be ? No Deborath Irene " assessment of health literacy ([facility] 2014 Standards, 3C10) Adequate Deborath Irene " passive cigarette smoke exposure No Deborath Irene " smoking status former smoker Deborath Irene drug use, illicit Never Deborath Irene " alcohol use Never Deborath Irene " social history reviewed E&M reviewed today Deborath Irene " assessment of health literacy ([facility] 2014 Standards, 3C10) Adequate Deborath Irene " is there any chance that you could be ? No Debora [facility] " sexual orientation Heterosexual Debora [facility] " Exercise Program Referral T [facility] " Weight Management Counseling Provided T Deb [facility] " Nutrition intervention T Debora [facility] " passive cigarette smoke exposure No Debora [facility] " smoking status former smoker [facility] Exercise Program Referral T Debora [facility] " Weight Management Counseling Provided T ora [facility] " Nutrition intervention T [facility] " drug use, illicit Never Debora Irene " alcohol use Never Debora [facility] " social history reviewed E&M reviewed today [facility] " assessment of health literacy ([facility] 2014 Standards, 3C10) Adequate Deb [facility] " is there any chance that you could be ? No Deb [facility] " sexual orientation Heterosexual [facility] " passive cigarette smoke exposure No [facility] " smoking status former smoker [facility] Exercise Program Referral T [facility] " Weight Management Counseling Provided T [facility] " Nutrition intervention T [facility] " drug use, illicit Never Debora [facility] " alcohol use Never Debora [facility] " social history reviewed E&M reviewed today moscow [facility] " sexual orientation Heterosexual [facility] " is there any chance that you could be ? No Deb [facility] " assessment of health literacy ([facility] 2014 Standards, 3C10) Adequate Deb [facility] " passive cigarette smoke exposure No Debora [facility] " smoking status former smoker [facility] Exercise Program Referral T [facility] " Weight Management Counseling Provided T [facility] " Nutrition intervention T Deb [facility] " drug use, illicit Never Debora Irene " alcohol use Never Debora [facility] " social history reviewed E&M reviewed today [facility] " sexual orientation Heterosexual [facility] " is there any chance that you could be ? No Deb Irene " assessment of health literacy ([facility] 2014 Standards, 3C10) Adequate Debora [facility] " passive cigarette smoke exposure No Debora [facility] " smoking status former smoker [facility] Exercise Program Referral T Caitlin Fletcher " Weight Management Counseling Provided T Caitlin Fletcher " Nutrition intervention T Iris Chance " drug use, illicit Never Iris Chance " alcohol use Never Iris Chance " social history reviewed E&M reviewed today Iris Chance " sexual orientation Heterosexual Caitlin Fletcher " is there any chance that you could be ? No Iris Chance " assessment of health literacy ([facility] 2014 Standards, 3C10) Adequate Iris Chance " passive cigarette smoke exposure No Caitlin Fletcher " smoking status current every day smoker Caitlin Fletcher Exercise Program Referral T Deborath Irene " Weight Management Counseling Provided T Deborath Irene " Nutrition intervention T Deborath Irene " drug use, illicit Never Deborath Irene " alcohol use Never Deborath Irene " social history reviewed E&M reviewed today Deborath Irene " assessment of health literacy ([facility] 2014 Standards, 3C10) Adequate Deborath Irene " is there any chance that you could be ? No Deborath Irene " sexual orientation Heterosexual Deborath Irene " passive cigarette smoke exposure No Deborath Irene " smoking status former smoker Deborath Irene drug use, illicit Never Deborath Irene " alcohol use Never Deborath Irene " social history reviewed E&M reviewed today Deborath Irene " is there any chance that you could be ? No Deborath Irene " sexual orientation Heterosexual Deborath Irene " assessment of health literacy ([facility] 2014 Standards, 3C10) Adequate Deborath Irene " passive cigarette smoke exposure No Deborath Irene " smoking status former smoker Deborath Irene " Exercise Program Referral T Deborath Irene " Weight Management Counseling Provided T Deborath Irene " Nutrition intervention T Deborath Irene time of call 12/10/2017 11:02 AM Kaitlin Lion time of call 11/29/2017 9:56 AM Kaitlin Lion Exercise Program Referral T Deborath Irene " Weight Management Counseling Provided T Deborath Irene " Nutrition intervention T Deborath Irene " drug use, illicit Never Deborath Irene " alcohol use Never Deborath Irene " social history reviewed E&M reviewed today [facility] " is there any chance that you could be ? No Debmoscow [facility] " sexual orientation Heterosexual [facility] " passive cigarette smoke exposure No [facility] " smoking status former smoker [facility] Exercise Program Referral T Caitlin Fletcher " Weight Management Counseling Provided T Caitlin Fletcher " Nutrition intervention T Caitlin Fletcher " drug use, illicit Never Iris Chance " alcohol use Never Iris Chance " social history reviewed E&M reviewed today Caitlin Fletcher " sexual orientation Heterosexual Iris Chance " is there any chance that you could be ? No Iris Chance " assessment of health literacy ([facility] 2014 Standards, 3C10) Adequate Iris Chance " smoking status former smoker Caitlin Fletcher " passive cigarette smoke exposure No Iris Chance Exercise Program Referral T [facility] " Weight Management Counseling Provided T [facility] " Nutrition intervention T [facility] " drug use, illicit Never [facility] " alcohol use Never [facility] " smoking status former smoker [facility] " is there any chance that you could be ? No [facility] " assessment of health literacy ([facility] 2014 Standards, 3C10) Adequate [facility] " sexual orientation Heterosexual [facility] " passive cigarette smoke exposure No [facility] Exercise Program Referral T [facility] " Weight Management Counseling Provided T [facility] " Nutrition intervention T [facility] " drug use, illicit Never [facility] " alcohol use Never [facility] " social history reviewed E&M reviewed today [facility] " is there any chance that you could be ? No [facility] " sexual orientation Heterosexual [facility] " assessment of health literacy ([facility] 2014 Standards, 3C10) Adequate [facility] " passive cigarette smoke exposure No [facility] " smoking status current every day smoker [facility] sexual orientation Heterosexual Love Chisholm " sex at Male Love Chisholm " drug use, illicit Never Love Chisholm " alcohol use Never Love Chisholm " smoking status current every day smoker Love Chisholm " is there any chance that you could be ? No Love Chisholm " assessment of health literacy ([facility] 2014 Standards, 3C10) Adequate Love Chisholm " passive cigarette smoke exposure No Love Chisholm " Exercise Program Referral T Love Chisholm " Weight Management Counseling Provided T Love Chisholm " Nutrition intervention T Love Chisholm Exercise Program Referral T Deborath Irene " Weight Management Counseling Provided T Deborath Irene " Nutrition intervention T Deborath Irene " drug use, illicit Never Deborath Irene " alcohol use Never Deborath Irene " social history reviewed E&M reviewed today Debora Irene " is there any chance that you could be ? No Deborath Irene " passive cigarette smoke exposure No Deborath Irene " smoking status current every day smoker Deborath Irene " assessment of health literacy ([facility] 2014 Standards, 3C10) Adequate Deborath Irene Exercise Program Referral T Deborath Irene " Weight Management Counseling Provided T Deborath Irene " Nutrition intervention T Deborath Irene " drug use, illicit Never Deborath Irene " alcohol use Never Deborath Irene " social history reviewed E&M reviewed today Debora Irene " is there any chance that you could be ? No Deborath Irene " passive cigarette smoke exposure No Deborath Irene " smoking status current every day smoker Deborath Irene " assessment of health literacy ([facility] 2014 Standards, 3C10) Adequate Deborath Irene drug use, illicit Never Deborath Irene " alcohol use Never Deborath Irene " patient considered to be homeless No Deborath Irene " is there any chance that you could be ? No Deborath Irene " passive cigarette smoke exposure No Deborath Irene " smoking status current every day smoker Deborath Irene " assessment of health literacy ([facility] 2014 Standards, 3C10) Adequate Deborath Irene " Exercise Program Referral T Deborath Irene " Weight Management Counseling Provided T Deborath Irene " Nutrition intervention T Deborath Irene FUNCTIONAL STATUS No Information Available MENTAL STATUS [...] Anxiety Disorder Questionnaire - Question [address] [facility] Teto assessment of judgment and insight E&M intact David D Chance " mental status examination: orientation E&M oriented to time, place, and person David D Chance " assessment of mood and affect E&M no depression, anxiety, or agitation David Rosi Fletcher " Generalized Anxiety Disorder Questionnaire - Question 2 0 Krys Irene " Generalized Anxiety Disorder Questionnaire - Question [address] [facility] Teto assessment of judgment and insight E&M intact David D Chance " mental status examination: orientation E&M oriented to time, place, and person David D Chance " assessment of mood and affect E&M no depression, anxiety, or agitation David Aranda Chance assessment of judgment and insight E&M intact David D Chance " mental status examination: orientation E&M oriented to time, place, and person David D Chance " assessment of mood and affect E&M no depression, anxiety, or agitation David Fletcher " Generalized Anxiety Disorder Questionnaire - Question 2 0 Krys Irene " Generalized Anxiety Disorder Questionnaire - Question 1 0 Jesusita Teto assessment of judgment and insight E&M intact David D Chance " mental status examination: orientation E&M oriented to time, place, and person David D Chance " assessment of mood and affect E&M no depression, anxiety, or agitation David Fletcher " Generalized Anxiety Disorder Questionnaire - Question 2 0 Krys Irene " Generalized Anxiety Disorder Questionnaire - Question [address] [facility] Teto assessment of judgment and insight E&M intact David D Chance " mental status examination: orientation E&M oriented to time, place, and person David D Chance " assessment of mood and affect E&M no depression, anxiety, or agitation David D Hcance " Generalized Anxiety Disorder Questionnaire - Question 2 0 Caitlin Fletcher " Generalized Anxiety Disorder Questionnaire - Question 1 0 Caitlin Fletcher assessment of judgment and insight E&M intact David D Chance " mental status examination: orientation E&M oriented to time, place, and person David Fletcher " assessment of mood and affect E&M no depression, anxiety, or agitation David Rosi Chance assessment of judgment and insight E&M intact David D Chance " mental status examination: orientation E&M oriented to time, place, and person David D Chance " assessment of mood and affect E&M no depression, anxiety, or agitation David Fletcher " Generalized Anxiety Disorder Questionnaire - Question [address] [facility] [facility] " Generalized Anxiety Disorder Questionnaire - Question 1 0 [facility] assessment of judgment and insight E&M intact [...] affect E&M no depression, anxiety, or agitation Daivd Fletcher assessment of judgment and insight E&M intact David D Chance " mental status examination: orientation E&M oriented to time, place, and person David Fletcher " assessment of mood and affect E&M no depression, anxiety, or agitation David Fletcher " Generalized Anxiety Disorder Questionnaire - Question 2 0 [place] " Generalized Anxiety Disorder Questionnaire - Question 1 [facility] and insight E&M intact David D Chance " mental status examination: orientation E&M oriented to time, place, and person David D Chance " assessment of mood and affect E&M no depression, anxiety, or agitation David Fletcher " Generalized Anxiety Disorder Questionnaire - Question 2 0 [place] " Generalized Anxiety Disorder Questionnaire - Question 1 0 [facility] assessment of judgment and insight E&M intact [...] Anxiety Disorder Questionnaire - Question 2 0 [place] Irene " Generalized Anxiety Disorder Questionnaire - Question 1 0 [facility] assessment of judgment and insight E&M intact David Fletcher " mental status examination: orientation E&M oriented to time, place, and person David Fletcher " assessment of mood and affect E&M no depression, anxiety, or agitation David Fletcher " Generalized Anxiety Disorder Questionnaire - Question 2 0 Irene " Generalized Anxiety Disorder Questionnaire - Question 1 0 [facility] assessment of judgment and insight E&M intact David Fletcher " mental status examination: orientation E&M oriented to time, place, and person David Fletcher " assessment of mood and affect E&M no depression, anxiety, or agitation David Fletcher " Generalized Anxiety Disorder Questionnaire - Question 2 0 [facility] Generalized Anxiety Disorder Questionnaire - Question 1 0 [facility] MEDICAL EQUIPMENT No Information Available FAMILY HISTORY [...] Consent/Declination Forms Est Patient Exp Problem - 35409 Est Patient Exp Problem - 72714 Est Patient Exp Problem - 90256 Est Patient Exp Problem - 34890 Ear Irrigation Est Patient Exp Problem - 17123 Est Patient Exp Problem - 08457 Est Patient Exp Problem - 50694 Est Patient Exp Problem - 27971 Est Patient Exp Problem - 46206 New Patient Intermediate Opth - 16150 Spherocyl, bif, plano to +/- 4.00d sphere, 0.12 to 2.00d cyl, per lens Frames, purchases Est Patient Exp Problem - 59519 Diabetes Education Vision Est Patient Exp Problem - 06465 HEMOGLOBIN A1C - In House INFLUENZA VACCINE QUADRIVALENT 3 YRS PLUS IM Admin of Vaccine - Injection - 1 Est Patient Exp Problem - 17453 Est Patient Exp Problem - 44256 Est Patient Detailed - 83874 Est Patient Exp Problem - 30286 INFLUENZA VACCINE QUADRIVALENT 3 YRS PLUS IM Admin of Vaccine - Injection - 1 Est Patient Detailed - 52358 New Patient Comprehensive - 18291 HISTORY OF PROCEDURES Procedure Date Procedure Name Provider Procedure Notes Status First Vx - Ix admin for Medicare patients Adelita Kohlibeen completed Fluzone Quadrivalent IM Prefilled Syringe 0.5 mL (PF) Adelita Kohlibeen completed Vaccines Ordered - Print Consent/Declination Forms Adelita Julio completed Ear Irrigation David Fletcher pt tolerated procedure well; hearing improved afterwards completed New Patient Intermediate Opth - 77741 Deborah Marquez completed Spherocyl, bif, plano to +/- 4.00d sphere, 0.12 to 2.00d cyl, per lens Criss Esparza completed Frames, purchases Criss Esparza Frame #[id number] (FFS) Pd 65.00 completed HEMOGLOBIN A1C - In House David Fletcher completed GOALS No Information Available HEALTH CONCERNS No Information Available
--- OUTSIDE RECORDS SUMMARY | 2019-03-15 06:34 | XMS REPORT ---
Author Author Admin, [place] Organization Unknown Address Unknown Phone Unavailable PROBLEMS [...] Location Encounter Diagnosis - Ambulatory Encounter Adelita Chisholm [facility] UNK - Ambulatory Encounter Adelita ColeLogjonathon [facility] UNK - Ambulatory Encounter Adelita Kim [facility] UNK - Ambulatory Encounter Love Chisholm [facility] UNK - Ambulatory Encounter Adelita Kim [facility] UNK - Ambulatory Encounter Adelita Chisholm Cathi Echavarria [facility] Acute bronchitisElevated creatinineLow TSH - Ambulatory Encounter David Acuñaatius [facility] UNK - Ambulatory Encounter David Fletcher [facility] UNK - Ambulatory Encounter David Fletcher [facility] Skin rash - Ambulatory Encounter David Fletcher [facility] UNK - Ambulatory Encounter David Fletcher [facility] UNK - Ambulatory Encounter David ColeLogic [facility] UNK - Ambulatory Encounter David Fletcher [facility] UNK - Ambulatory Encounter David [facility] UNK - Ambulatory Encounter David Irene [facility] Gout - Ambulatory Encounter David ColeLogjonathon [facility] UNK - Ambulatory Encounter David ColeLogjonathon [facility] UNK - Ambulatory Encounter David Fletcher [facility] UNK - Ambulatory Encounter David Marcano Irene [facility] Acute bronchitis - Ambulatory Encounter David Fletcher [facility] UNK - Ambulatory Encounter David Fletcher [facility] UNK - Ambulatory Encounter David Marcano Irene [facility] UNK - Ambulatory Encounter Fax Status LinkLogic [facility] UNK - Ambulatory Encounter Fax Status LinkLogic [facility] UNK - Ambulatory Encounter Fax Status [facility] UNK - Ambulatory Encounter David Fletcher [facility] UNK - Ambulatory Encounter David Alejandre Irene [facility] BPHCerumen impaction - Ambulatory Encounter David Fletcher [facility] UNK - Ambulatory Encounter David Marcano Irene [facility] UNK - Ambulatory Encounter David Fletcher [facility] UNK - Ambulatory Encounter David Fletcher [facility] UNK - Ambulatory Encounter David Fletcher [facility] Pneumonia - Ambulatory Encounter David Bejarano [facility] UNK - Ambulatory Encounter David Fletcher [facility] UNK - Ambulatory Encounter David D Chance [facility] - Ambulatory Encounter David ColeAvelinojonathon [facility] UNK - Ambulatory Encounter Krys Irene [facility] UNK - Ambulatory Encounter David Fletcher [facility] UNK - Ambulatory Encounter David Fletcher [facility] UNK - Ambulatory Encounter David Bejarano [facility] UNK - Ambulatory Encounter Jessa Calhounarra [facility] UNK - Ambulatory Encounter David Fletcher [facility] UNK - Ambulatory Encounter David Fletcher Krys [facility] UNK - Ambulatory Encounter Kaitlin UshaGarcia [facility] Public Health Services UNK - Ambulatory Encounter David Fletcher [facility] UNK - Ambulatory Encounter Deborah Bhakhrani Deborah Bhakhrani [facility] UNK - Ambulatory Encounter David Bejarano [facility] UNK - Ambulatory Encounter Criss [...] Vision UNK - Ambulatory Encounter David Bejarano [facility] UNK - Ambulatory Encounter Deborah Bhakhrani Deborah Bhakhrani Elayne Sarkar [facility] Hyperopia - OUAstigmatism - OUPresbyopia - OU - Ambulatory Encounter Kaitlin Lion [facility] Public Health Services UNK - Ambulatory Encounter David Fletcher [facility] UNK - Ambulatory Encounter David Marcano Irene [facility] Depression - Ambulatory Encounter David Bejarano [facility] UNK - Ambulatory Encounter David Bejarano [facility] UNK - Ambulatory Encounter Krys Irene [facility] UNK - Ambulatory Encounter David Fletcher [facility] UNK - Ambulatory Encounter David Fletcher [facility] UNK - Ambulatory Encounter David Fletcher [facility] UNK - Ambulatory Encounter David Fletcher [facility] UNK - Ambulatory Encounter David Fletcher [facility] UNK - Ambulatory Encounter Debnaveed Irene [facility] UNK - Ambulatory Encounter David Ageeoraharitha Irene [facility] Diabetes mellitus, type IIVaccination Against Influenza - Ambulatory Encounter Fax Status [facility] UNK - Ambulatory Encounter Fax Status [facility] UNK - Ambulatory Encounter Fax Status [facility] UNK - Ambulatory Encounter Cyndieoraharitha Irene [facility] UNK - Ambulatory Encounter David Adkins [facility] Hypogonadism - Ambulatory Encounter David Fletcher [facility] UNK - Ambulatory Encounter David ColeLogjonathon Marcano Irene [facility] UNK - Ambulatory Encounter David Fletcher [facility] UNK - Ambulatory Encounter David Marcano Irene [facility] Libido, decreased - Ambulatory Encounter David Fletcher [facility] UNK - Ambulatory Encounter David Marcano Irene [facility] UNK - Ambulatory Encounter Fax Status [facility] UNK - Ambulatory Encounter Fax Status [facility] UNK - Ambulatory Encounter Fax Status [facility] UNK - Ambulatory Encounter David Fletcher [facility] UNK - Ambulatory Encounter Love Chisholm [facility] UNK - Ambulatory Encounter David Fletcher [facility] UNK - Ambulatory Encounter David Fletcher LinkLogjonathon [facility] UNK - Ambulatory Encounter David Fletcher [facility] UNK - Ambulatory Encounter David Fletcher [facility] UNK - Ambulatory Encounter David Alejandre Irene Love Chisholm [facility] Purpura - Ambulatory Encounter David Fletcher [facility] UNK - Ambulatory Encounter David Marcano Irene [facility] UNK - Ambulatory Encounter David Fletcher LinkLogjonathon [facility] UNK - Ambulatory Encounter Krys Irene [facility] UNK - Ambulatory Encounter David Fletcher [facility] UNK - Ambulatory Encounter David Marcano Irene [facility] SmokerVaccination Against Influenza - Ambulatory Encounter David Fletcher [facility] UNK - Ambulatory Encounter David D Chance David D Chance [facility] Muscle spasm of backBPHHypothyroidismHypertension VITAL SIGNS [...] as % of total hemoglobin 5.6 % Cyndienaveed Irene thyroid stimulating hormone, serum 0.188 u[iU]/mL LinkLogic [...] Status Fluzone Quadrivalent IM PF 0.5 ML [facility] [address]-58 [employer]i Pasteur 0.5 mL [id number] completed HISTORY OF MEDICATION USE Medication Instructions Dates Provider Comments HYDROCORTISONE 2.5 % EXTERNAL CREAM apply to affected area twice a day Adelita Kim PREDNISONE 20 MG ORAL TABLET take 2 tabs By Mouth for first 5 days, finally 1 tab per day last 5 days Adelita Kim ONETOUCH VERIO STRP CHECK BLOOD SUGAR 1 TO 3 TIMES DAILY David HOLGUIN DELICA LANCETS 33G CHECK BLOOD SUGAR 1 [...] Day As Needed for pain - Adelita Julio LEVOTHYROXINE SODIUM 25 MCG ORAL TABLET One [...] Cathi Echavarria " assessment of health literacy ([facility] 2014 Standards, 3C10) Adequate Cathi Echavarria " smoking status former smoker Cathi Leny [place] Exercise Program Referral T Caitlin Fletcher " Weight Management Counseling Provided T Caitlin Chance " Nutrition intervention T Caitlin Chance " drug use, illicit Never Iris Chance " alcohol use Never Iris Chance " social history reviewed E&M reviewed today Iris Chance " sexual orientation Heterosexual Iris Chance " is there any chance that you could be ? No Iris Chance " assessment of health literacy ([facility] 2014 Standards, 3C10) Adequate Iris Chance " passive cigarette smoke exposure No Iris Chance " smoking status former smoker Iris Chance Exercise Program Referral T Deboraharitha Irene " Weight Management Counseling Provided T Deborath Irene " Nutrition intervention T Debora Irene " drug use, illicit Never Deborath Irene " alcohol use Never Deborath Irene " social history reviewed E&M reviewed today Deborath Irene " sexual orientation Heterosexual Deborath Irene " is there any chance that you could be ? No Deborath Irene " assessment of health literacy ([facility] 2014 Standards, 3C10) Adequate Deborath Irene " passive cigarette smoke exposure No Deborath Irene " smoking status former smoker Krys Irene drug use, illicit Never Deborath Irene " alcohol use Never Deborath Irene " social history reviewed E&M reviewed today Deborath Irene " assessment of health literacy ([facility] 2014 Standards, 3C10) Adequate Deborath Irene " is there any chance that you could be ? No Deborath Irene " sexual orientation Heterosexual Deborath Irene " Exercise Program Referral T [facility] " Weight Management Counseling Provided T [facility] " Nutrition intervention T Deb [facility] " passive cigarette smoke [facility] " smoking status former smoker [facility] Exercise Program Referral T Deb [facility] " Weight Management Counseling Provided T [facility] " Nutrition intervention T Deb [facility] " drug use, illicit Never Debora [facility] " alcohol use [facility] " social history reviewed E&M reviewed today [facility] " assessment of health literacy ([facility] 2014 Standards, 3C10) Adequate Debora [facility] " is there any chance that you could be ? No Debora [facility] " sexual orientation Heterosexual [facility] " passive cigarette smoke [facility] " smoking status former smoker [facility] Exercise Program Referral T Debcranston [facility] " Weight Management Counseling Provided T [facility] " Nutrition intervention T [facility] " drug use, illicit [facility] " [facility] use [facility] " social history reviewed E&M reviewed today [facility] " sexual orientation [facility] " is there any chance that you could be ? No Debcranston [facility] " assessment of health literacy ([facility] 2014 Standards, 3C10) Adequate Debcranston [facility] " passive cigarette smoke exposure [facility] " smoking status former smoker [facility] Exercise Program Referral T Deb [facility] " Weight Management Counseling Provided T [facility] " Nutrition intervention T Deb [facility] " drug use, illicit Never Debora [facility] " alcohol use [facility] " social history reviewed E&M reviewed today [facility] " sexual orientation Heterosexual [facility] " is there any chance that you could be ? No Debcranston [facility] " assessment of health literacy ([facility] 2014 Standards, 3C10) Adequate [facility] " passive cigarette smoke exposure [facility] " smoking status former smoker [facility] Exercise Program Referral T Caitlin Fletcher " [...] Iris Chance " assessment of health literacy ([facility] 2014 Standards, 3C10) Adequate Iris Chance " passive cigarette smoke exposure No Iris Chance " smoking status current every day smoker Iris Chance Exercise Program Referral T Deborath Irene " Weight Management Counseling Provided T Debora Irene " Nutrition intervention T Deborath Irene " drug use, illicit Never Deborath Irene " alcohol use Never Deborath Irene " social history reviewed E&M reviewed [facility] " assessment of health literacy ([facility] 2014 Standards, 3C10) Adequate Deborath Irene " is there any chance that you could be ? No Deborath Irene " sexual orientation Heterosexual Deborath Irene " passive cigarette smoke exposure No Debora Irene " smoking status [facility] drug use, illicit Never Deborath Irene " alcohol use Never Deborath Irene " social history reviewed E&M reviewed [facility] " is there any chance that you could be ? No Deborath Irene " sexual orientation Heterosexual Deborath Irene " assessment of health literacy ([facility] 2014 Standards, 3C10) Adequate Deborath Irene " passive cigarette smoke exposure No Debora Irene " [facility] " Exercise Program Referral T Debora Irene " Weight Management Counseling Provided T Debora Irene " Nutrition intervention T Deborath Irene time of call 12/10/2017 11:02 AM Kaitlin Lion time of call 11/29/2017 9:56 AM Kaitlin Lion Exercise Program Referral T Deborath Irene " Weight Management Counseling Provided T Deborath Irene " Nutrition intervention T Deborath Irene " drug use, illicit Never Deborath Irene " alcohol use Never Deborath Irene " social history reviewed E&M reviewed [facility] " is there any chance that you could be ? No Deborath Irene " sexual orientation Heterosexual Deborath Irene " passive cigarette smoke exposure No Deborath Irene " [facility] status [facility] Referral T Caitlin Fletcher " Weight Management Counseling Provided T Caitlin Fletcher " Nutrition intervention T Caitlin Fletcher " drug use, illicit Never Caitlin Fletcher " alcohol use Never Iris Chance " social history reviewed E&M reviewed today Caitlin Fletcher " sexual orientation Heterosexual Caitlin Fletcher " is there any chance that you could be ? No Iris Chance " assessment of health literacy ([facility] 2014 Standards, 3C10) Adequate Iris Chance " smoking status former smoker Caitlin Fletcher " passive cigarette smoke exposure No Iris Chance [facility] " [facility] " [facility] " drug use, illicit Never [facility] " alcohol use Never [facility] " smoking status [facility] " is there any chance that you could be ? No Deborath Irene " assessment of health literacy ([facility] 2014 Standards, 3C10) Adequate [facility] " sexual orientation Heterosexual [facility] " passive cigarette smoke exposure [facility] " [facility] " [facility] " drug use, illicit Never [facility] " alcohol use Never [facility] " social history reviewed E&M reviewed today [facility] " is there any chance that you could be ? No [facility] " sexual orientation Heterosexual [facility] " assessment of health literacy ([facility] 2014 Standards, 3C10) Adequate Deborath Irene " passive cigarette smoke exposure [facility] " smoking status current every day smoker [facility] sexual orientation Heterosexual Love Chisholm " sex at Male Love Chisholm " drug use, illicit Never Love Chisholm " alcohol use Never Love Chisholm " smoking status current every day smoker Love Chisholm " is there any chance that you could be ? No Love Chisholm " assessment of health literacy ([facility] 2014 Standards, 3C10) Adequate Love Chisholm " passive cigarette smoke exposure No Love Chisholm " Exercise Program Referral T Love Chisholm " Weight Management Counseling Provided T Love Chisholm " Nutrition intervention T Love Chisholm Exercise Program Referral T " Weight Management Counseling Provided T Debora " Nutrition intervention T Debora Irene " drug use, illicit Never Debora Irene " alcohol use Never Debora Irene " social history reviewed E&M reviewed today [facility] " is there any chance that you could be ? No Deborath Irene " passive cigarette smoke exposure No Debora Irene " smoking status current every day smoker Deborath Irene " assessment of health literacy ([facility] 2014 Standards, 3C10) Adequate Deborath Irene Exercise Program Referral T Debora " Weight Management Counseling Provided T Debora Irene " Nutrition intervention T Debora Irene " drug use, illicit Never Debora Irene " alcohol use Never Debora Irene " social history reviewed E&M reviewed today [facility] " is there any chance that you could be ? No Deborath Irene " passive cigarette smoke exposure No Debora Irene " smoking status current every day smoker Deborath Irene " assessment of health literacy ([facility] 2014 Standards, 3C10) Adequate [facility] drug use, illicit Never Debora Irene " alcohol use Never Debora Irene " patient considered to be homeless No Debora Irene " is there any chance that you could be ? No Deborath Irene " passive cigarette smoke exposure No Deb Irene " smoking status current every day smoker Debcranston Irene " assessment of health literacy ([facility] 2014 Standards, 3C10) Adequate Debora Irene " Exercise Program Referral T Deb Irene " Weight Management Counseling Provided T Deb Irene " Nutrition intervention T Irene FUNCTIONAL STATUS No Information Available MENTAL STATUS Date Observation Value Provider assessment of mood and affect E&M no depression, anxiety, or agitation Adelita Kim " Generalized Anxiety Disorder Questionnaire - Question 2 0 Cathi Echavarria " Generalized Anxiety Disorder Questionnaire - Question 1 0 Cathi Echavarria assessment of judgment and insight E&M intact Davdi Fletcher " mental status examination: orientation E&M oriented to time, place, and person David Fletcher " assessment of mood and affect E&M no depression, anxiety, or agitation David Fletcher " Generalized Anxiety Disorder Questionnaire - Question 2 0 Jesusita Irene " Generalized Anxiety Disorder Questionnaire - Question 1 0 [facility] assessment of judgment and insight E&M intact David D Chance " mental status examination: orientation E&M oriented to time, place, and person David Rosi Fletcher " assessment of mood and affect E&M no depression, anxiety, or agitation David Fletcher " Generalized Anxiety Disorder Questionnaire - Question 2 0 cranston Irene " Generalized Anxiety Disorder Questionnaire - Question 1 0 [facility] assessment of judgment and insight E&M intact [...] Anxiety Disorder Questionnaire - Question 1 0 [facility] assessment of judgment and insight E&M intact David D Chance " mental status examination: orientation E&M oriented to time, place, and person David Fletcher " assessment of mood and affect E&M no depression, anxiety, or agitation David Fletcher " Generalized Anxiety Disorder Questionnaire - Question 2 0 Jesusita Irene " Generalized Anxiety Disorder Questionnaire - Question 1 0 [facility] assessment of judgment and insight E&M [...] Disorder Questionnaire - Question 1 0 [facility] assessment of judgment and insight E&M intact David Fletcher " mental status examination: orientation E&M oriented to time, place, and person David Fletcher " assessment of mood and affect E&M no depression, anxiety, or agitation David Fletcher " Generalized Anxiety Disorder Questionnaire - Question 2 0 Irene " Generalized Anxiety Disorder Questionnaire - Question 1 0 [facility] assessment of judgment and insight E&M intact David Fletcher " mental status examination: orientation E&M oriented to time, place, and person David Fletcher " assessment of mood and affect E&M no depression, anxiety, or agitation David Fletcher " Generalized Anxiety Disorder Questionnaire - Question 2 0 Irene " Generalized Anxiety Disorder Questionnaire - Question 1 0 [facility] MEDICAL EQUIPMENT No Information Available FAMILY HISTORY [...] Consent/Declination Forms Est Patient Exp Problem - 68293 Est Patient Exp Problem - 17468 Est Patient Exp Problem - 77382 Est Patient Exp Problem - 43802 Ear Irrigation Est Patient Exp Problem - 64766 Est Patient Exp Problem - 97339 Est Patient Exp Problem - 46128 Est Patient Exp Problem - 46485 Est Patient Exp Problem - 64932 New Patient Intermediate Opth - 93902 Spherocyl, bif, plano to +/- 4.00d sphere, 0.12 to 2.00d cyl, per lens Frames, purchases Est Patient Exp Problem - 74393 Diabetes Education Vision Est Patient Exp Problem - 53561 HEMOGLOBIN A1C - In House INFLUENZA VACCINE QUADRIVALENT 3 YRS PLUS IM Admin of Vaccine - Injection - 1 Est Patient Exp Problem - 19850 Est Patient Exp Problem - 25929 Est Patient Detailed - 44524 Est Patient Exp Problem - 02743 INFLUENZA VACCINE QUADRIVALENT 3 YRS PLUS IM Admin of Vaccine - Injection - 1 Est Patient Detailed - 05521 New Patient Comprehensive - 20985 HISTORY OF PROCEDURES Procedure Date Procedure Name Provider Procedure Notes Status First Vx - Ix admin for Medicare patients Adelita Kim completed Fluzone Quadrivalent IM Prefilled Syringe 0.5 mL (PF) Adelita Kim completed Vaccines Ordered - Print Consent/Declination Forms Adelita Julio completed Ear Irrigation David Fletcher pt tolerated procedure well; hearing improved afterwards completed New Patient Intermediate Opth - 99998 Deborah Suarezhranamadou completed Spherocyl, bif, plano to +/- 4.00d sphere, 0.12 [address] 2.00d cyl, per lens Criss Esparza completed Frames, purchases Criss Esparza Frame #[id number] (FFS) Pd 65.00 completed HEMOGLOBIN A1C - In House David Fletcher completed GOALS No Information Available HEALTH CONCERNS No Information Available
--- OUTSIDE RECORDS SUMMARY | 2019-03-15 06:34 | XMS REPORT ---
Author Author Admin, Shiloh Organization Unknown Address Unknown Phone Unavailable PROBLEMS [...] Encounter Diagnosis - Ambulatory Encounter Adelita Kim [facility] UNK - Ambulatory Encounter Adelitastacy Chisholm [facility] UNK - Ambulatory Encounter Adelita Kohlibeen [facility] - Ambulatory Encounter Adelita Kohlibeen [facility] UNK - Ambulatory Encounter Love [facility] - [facility] - [facility] Encounter Adelita Blairasia Echavarria [facility] Acute bronchitisElevated creatinineLow TSH - Ambulatory Encounter David Acuñaatius [facility] UNK - Ambulatory Encounter David Fletcher [facility] UNK - Ambulatory Encounter [facility] Skin rash - Ambulatory Encounter David Fletcher [facility] UNK - Ambulatory Encounter David Fletcher [facility] UNK - Ambulatory Encounter David ColeLogjonathon [facility] UNK - Ambulatory Encounter David Fletcher [facility] UNK - Ambulatory Encounter David Fletcher [facility] UNK - Ambulatory Encounter [facility] Gout - Ambulatory Encounter David Bejarano [facility] UNK - Ambulatory Encounter David Fletcher Link[facility]jonathon [facility] UNK - Ambulatory Encounter David Fletcher [facility] UNK - Ambulatory Encounter David Marcano Irene [facility] Acute bronchitis - Ambulatory Encounter David Fletcher [facility] UNK - Ambulatory Encounter David Fletcher [facility] UNK - Ambulatory Encounter David Marcano Irene [facility] UNK - Ambulatory Encounter Fax Status [facility] UNK - Ambulatory Encounter Fax Status [facility] UNK - Ambulatory Encounter Fax Status [facility] UNK - Ambulatory Encounter David Fletcher [facility] UNK - Ambulatory Encounter David Alejandre Irene [facility] BPHCerumen impaction - Ambulatory Encounter David Fletcher [facility] UNK - Ambulatory Encounter David Marcano [facility] UNK - Ambulatory Encounter David Fletcher [facility] UNK - Ambulatory Encounter David Fletcher [facility] UNK - Ambulatory Encounter [facility] Pneumonia - Ambulatory Encounter David ColeLogjonathon [facility] UNK - Ambulatory Encounter [facility] - Ambulatory Encounter David Ageesharleneharitha Irene [facility] URICough - Ambulatory Encounter David Fletcher LinkLogjonathon [facility] UNK - Ambulatory Encounter Krys Irene [facility] UNK - Ambulatory Encounter David Fletcher [facility] UNK - Ambulatory Encounter David Fletcher [facility] UNK - Ambulatory Encounter [facility] UNK - Ambulatory Encounter Jessa Calhounarra [facility] UNK - Ambulatory Encounter David Fletcher [facility] UNK - Ambulatory Encounter David Fletcher Jesusitaharitha Irene [facility] UNK - Ambulatory Encounter Kaitlin Lion [facility] UNK - Ambulatory Encounter David Fletcher [facility] UNK - Ambulatory Encounter Deborah Bhakhrani Deborha Bhakhrani [facility] UNK - Ambulatory Encounter David Fletcher LinkLogjonathon [facility] UNK - Ambulatory Encounter Criss [...] Vision UNK - Ambulatory Encounter David Bejarano [facility] UNK - Ambulatory Encounter Deborah Bhakhrani Deborah Bhakhrani Elayne Sarkar [facility] Hyperopia - OUAstigmatism - OUPresbyopia - OU - Ambulatory Encounter Kaitlin Lion [facility] Services UNK - Ambulatory Encounter David Fletcher [facility] UNK - Ambulatory Encounter David Marcano Irene [facility] Depression - Ambulatory Encounter David Bejarano [facility] UNK - Ambulatory Encounter David Bejarano [facility] UNK - Ambulatory Encounter Krys Irene [facility] UNK - Ambulatory Encounter David Fletcher [facility] UNK - Ambulatory Encounter David Fletcher [facility] UNK - Ambulatory Encounter [facility] - [facility]ulatory Encounter [facility]K - Ambulatory Encounter David Fletcher [facility] UNK - Ambulatory Encounter Cyndiesharleneharitha Irene [facility] UNK - Ambulatory Encounter David Fletcher [facility] Diabetes mellitus, type IIVaccination Against Influenza - Ambulatory Encounter Fax Status [facility] UNK - Ambulatory Encounter [facility]K - Ambulatory Encounter Fax Status [facility] Services UNK - Ambulatory Encounter Krys Irene [facility] UNK - Ambulatory Encounter David Adkins [facility] Hypogonadism - Ambulatory Encounter [facility] - Ambulatory Encounter [facility]Cl[facility] Hospitaljonathon Marcano Irene [facility] UNK - Ambulatory Encounter David Fletcher [facility] UNK - Ambulatory Encounter David Marcano Irene [facility] Libido, decreased - Ambulatory Encounter David Fletcher [facility] UNK - Ambulatory Encounter David Marcano Irene [facility] UNK - Ambulatory Encounter Fax Status [facility] UNK - Ambulatory Encounter Fax Status [facility] UNK - Ambulatory Encounter Fax Status [facility] UNK - Ambulatory Encounter David Fletcher [facility] UNK - Ambulatory Encounter Love [facility]isholm [facility] - Ambulatory Encounter David Fletcher [facility] UNK - Ambulatory Encounter David Fletcher LinkLogjonathon [facility] UNK - Ambulatory Encounter David Fletcher [facility] UNK - Ambulatory Encounter David Fletcher [facility] UNK - Ambulatory Encounter David Alejandre Teto Chisholm [facility] Purpura - Ambulatory Encounter David Fletcher [facility] UNK - Ambulatory Encounter David Marcano Irene [facility] UNK - Ambulatory Encounter David ColeLogjonathon [facility] UNK - Ambulatory Encounter Krys [facility] UNK - Ambulatory Encounter David Fletcher [facility] UNK - Ambulatory Encounter David Marcnao [facility] SmokerVaccination Against Influenza - Ambulatory Encounter David D Chance David D Chance [facility] UNK - Ambulatory Encounter David Mcharitha Irene [facility] Muscle spasm of backBPHHypothyroidismHypertension VITAL SIGNS No [...] as % of total hemoglobin 5.6 % JesusitaPresbyterian/St[facility] Luke's Medical CenterIrene thyroid stimulating hormone, serum 0.188 u[iU]/mL LinkLogic [...] Status Fluzone Quadrivalent IM PF 0.[address] [facility] [id number] [employer] Pasteur 0.5 mL [id number] completed HISTORY OF MEDICATION USE Medication Instructions [...] Cathi Echavarria " sexual orientation Heterosexual Cathi Leny Jericho " assessment of health literacy ([facility] 2014 Standards, 3C10) Adequate Cathi [...] Iris Chance " assessment of health literacy ([facility] 2014 Standards, 3C10) Adequate Iris [...] Deborath Irene " assessment of health literacy ([facility] 2014 Standards, 3C10) Adequate Deborath Irene " passive cigarette smoke exposure No Deborath Irene " smoking status former smoker Deborath Irene drug use, illicit Never Deborath Irene " alcohol use Never Deborath Irene " social history reviewed E&M reviewed today Deborath Irene " assessment of health literacy ([facility] 2014 Standards, 3C10) Adequate Deborath Irene " is there any chance that you could be ? No Debora [facility] " sexual orientation Heterosexual Debora [facility] " Exercise Program Referral T [facility] " Weight Management Counseling Provided T Deb [facility] " Nutrition intervention T Debora [facility] " passive cigarette smoke exposure No Debora [facility] " smoking status [facility] Referral T Debora [facility] " Weight Management Counseling Provided T ora [facility] " Nutrition intervention T [facility] " drug use, illicit Never Debora Irene " alcohol use Never Debora [facility] " social history reviewed E&M reviewed today [facility] " assessment of health literacy ([facility] 2014 Standards, 3C10) Adequate Deb [facility] " is there any chance that you could be ? No Deb [facility] " sexual orientation Heterosexual [facility] " passive cigarette smoke exposure No [facility] " smoking status former smoker [facility] Exercise Program Referral T [facility] " Weight Management Counseling Provided T [facility] " Nutrition intervention T [facility] " drug use, illicit Never Debora [facility] " alcohol use Never Debora [facility] " social history reviewed E&M reviewed today [place] [facility] " sexual orientation Heterosexual [facility] " is there any chance that you could be ? No Deb [facility] " assessment of health literacy ([facility] 2014 Standards, 3C10) Adequate Deb [facility] " passive cigarette smoke exposure No Debora [facility] " smoking status former smoker [facility] Exercise Program Referral T [facility] " Weight Management Counseling Provided T [facility] " Nutrition intervention T Deb [facility] " drug use, illicit Never Debora Irene " alcohol use Never Debora [facility] " social history reviewed E&M reviewed today [facility] " sexual orientation Heterosexual [facility] " is there any chance that you could be ? No Deb Irene " assessment of health literacy ([facility] 2014 Standards, 3C10) Adequate Debora [facility] " passive cigarette smoke exposure No Debora [facility] " smoking status former sm[facility] Exercise Program Referral T Caitlin Fletcher " [...] Iris Chance " assessment of health literacy ([facility] 2014 Standards, 3C10) Adequate Iris [...] Deborath Irene " assessment of health literacy ([facility] 2014 Standards, 3C10) Adequate Deborath [...] Deborath Irene " assessment of health literacy ([facility] 2014 Standards, 3C10) Adequate Deborath [...] " social history reviewed E&M reviewed today [facility] " is there any chance that you could be ? No Debhigh[place] [facility] " sexual orientation Heterosexual [facility] " passive cigarette smoke exposure No [facility] " smoking status former smoker [facility] Exercise Program Referral T Caitlin Fletcher " [...] Iris Chance " assessment of health literacy ([facility] 2014 Standards, 3C10) Adequate Iris Chance " smoking status former smoker Caitlin Fletcher " passive cigarette smoke exposure No Iris Chance Exercise Program Referral T [facility] " Weight Management Counseling Provided T [facility] " Nutrition intervention T [facility] " drug use, illicit Never [facility] " alcohol use Never [facility] " smoking status former smoker [facility] " is there any chance that you could be ? [facility] " assessment of health literacy ([facility] 2014 Standards, 3C10) Adequate [facility] " sexual orientation Heterosexual [facility] " passive cigarette smoke exposure No [facility] Exercise Program Referral T [facility] " Weight Management Counseling Provided T [facility] " Nutrition intervention T [facility] " drug use, illicit Never [facility] " alcohol use Never [facility] " social history reviewed E&M reviewed today [facility] " is there any chance that you could be ? No [facility] " sexual orientation Heterosexual [facility] " assessment of health literacy ([facility] 2014 Standards, 3C10) [facility]quate [facility] " passive cigarette smoke exposure No [facility] " smoking status current every day smoker [facility] sexual orientation Heterosexual Love Chisholm " sex at Male Love Chisholm " drug use, illicit Never Love Chisholm " alcohol use Never Love Chisholm " smoking status current every day smoker Love Chisholm " is there any chance that you could be ? No Love Chisholm " assessment of health literacy ([facility] 2014 Standards, 3C10) Adequate Love Chisholm " passive cigarette smoke exposure No Love Chisholm " Exercise Program Referral T Love Chisholm " Weight Management Counseling Provided T Love Chisholm " Nutrition intervention T Love Chisholm Exercise Program Referral T Deborath Ierne " Weight Management Counseling Provided T Deborath [...] Deborath Irene " assessment of health literacy ([facility] 2014 Standards, 3C10) Adequate Deborath [...] Deborath Irene " assessment of health literacy ([facility] 2014 Standards, 3C10) Adequate Deborath [...] Deborath Irene " assessment of health literacy ([facility] 2014 Standards, 3C10) Adequate Deborath Irene " Exercise Program Referral T Deborath Irene " Weight Management Counseling Provided T Deborath Irene " Nutrition intervention T Deborath Irene FUNCTIONAL STATUS No Information Available MENTAL STATUS Date Observation Value Provider assessment of mood and affect E&M no depression, anxiety, or agitation Adelita Kim " Generalized Anxiety Disorder Questionnaire - Question 2 0 Ctahi Echavarria " Generalized Anxiety Disorder Questionnaire - [...] Anxiety Disorder Questionnaire - Question 1 0 [facility] assessment of judgment and insight E&M intact David D Chance " mental status examination: orientation E&M oriented to time, place, and person David D Chance " assessment of mood and affect E&M no depression, anxiety, or agitation David Rosi Fletcher " Generalized Anxiety Disorder Questionnaire - Question 2 0 Krys Irene " Generalized Anxiety Disorder Questionnaire - Question 1 0 [facility] assessment of judgment and [...] Anxiety Disorder Questionnaire - Question 1 0 [facility] assessment of judgment and [...] Anxiety Disorder Questionnaire - Question 2 0 [facility] " Generalized Anxiety Disorder Questionnaire - Question 1 0 [facility] assessment of judgment and insight E&M intact [...] Anxiety Disorder Questionnaire - Question 2 0 [place] " Generalized Anxiety Disorder Questionnaire - Question 1 0 [facility] assessment of judgment and insight E&M intact David D Chance " mental status examination: orientation E&M oriented to time, place, and person David D Chance " assessment of mood and affect E&M no depression, anxiety, or agitation David Fletcher " Generalized Anxiety Disorder Questionnaire - Question 2 0 [place] Irene " Generalized Anxiety Disorder Questionnaire - Question 1 0 [facility] assessment of judgment and insight E&M intact [...] Anxiety Disorder Questionnaire - Question 2 0 [place] Irene " Generalized Anxiety Disorder Questionnaire - Question 1 0 [facility] assessment of judgment and insight E&M intact David Fletcher " mental status examination: orientation E&M oriented to time, place, and person David Fletcher " assessment of mood and affect E&M no depression, anxiety, or agitation David Fletcher " Generalized Anxiety Disorder Questionnaire - Question 2 0 Irene " Generalized Anxiety Disorder Questionnaire - Question 1 0 [facility] assessment of judgment and insight E&M intact David Fletcher " mental status examination: orientation E&M oriented to time, place, and person David Fletcher " assessment of mood and affect E&M no depression, anxiety, or agitation David Fletcher " Generalized Anxiety Disorder Questionnaire - Question 2 0 [facility] " Generalized Anxiety Disorder Questionnaire - Question 1 0 [facility] MEDICAL EQUIPMENT No Information Available FAMILY HISTORY [...] Consent/Declination Forms Est Patient Exp Problem - 48705 Est Patient Exp Problem - 52288 Est Patient Exp Problem - 32128 Est Patient Exp Problem - 18620 Ear Irrigation Est Patient Exp Problem - 01756 Est Patient Exp Problem - 68388 Est Patient Exp Problem - 97130 Est Patient Exp Problem - 58894 Est Patient Exp Problem - 00584 New Patient Intermediate Opth - 62445 Spherocyl, bif, plano to +/- 4.00d sphere, 0.12 to 2.00d cyl, per lens Frames, purchases Est Patient Exp Problem - 88837 Diabetes Education Vision Est Patient Exp Problem - 17688 HEMOGLOBIN A1C - In House INFLUENZA VACCINE QUADRIVALENT 3 YRS PLUS IM Admin of Vaccine - Injection - 1 Est Patient Exp Problem - 83346 Est Patient Exp Problem - 14639 Est Patient Detailed - 32904 Est Patient Exp Problem - 57911 INFLUENZA VACCINE QUADRIVALENT 3 YRS PLUS IM Admin of Vaccine - Injection - 1 Est Patient Detailed - 47076 New Patient Comprehensive - 96955 HISTORY OF PROCEDURES Procedure Date Procedure Name Provider Procedure Notes Status First Vx - Ix admin for Medicare patients Adelita Kohlibeen completed Fluzone Quadrivalent IM Prefilled Syringe 0.5 mL (PF) Adelita Kohlibeen completed Vaccines Ordered - Print Consent/Declination Forms Adelita Julio completed Ear Irrigation David Fletcher pt tolerated procedure well; hearing improved afterwards completed New Patient Intermediate Opth - 11531 Deborah Marquez completed Spherocyl, bif, plano to +/- 4.00d sphere, 0.12 to 2.00d cyl, per lens Criss Esparza completed Frames, purchases Criss Esparza Frame #[id number] (FFS) Pd 65.00 completed HEMOGLOBIN A1C - In House David Fletcher completed GOALS No Information Available HEALTH CONCERNS No Information Available
--- OUTSIDE RECORDS SUMMARY | 2019-03-15 06:35 | XMS REPORT ---
Author Author Admin, Sharon Organization Unknown Address Unknown Phone Unavailable PROBLEMS Condition Status Date Provider Notes Hypertriglyceridemia active Adelita Julio Chronic kidney disease, unspecified active Adelita Julio Low TSH active Adelita Julio Elevated creatinine [...] Provider Location Encounter Diagnosis - Ambulatory Encounter Fax Status [facility] UNK - Ambulatory Encounter Fax Status [facility] UNK - Ambulatory Encounter Fax Status [facility] UNK - Ambulatory Encounter Adelita Julio Adelita Julio [facility] UNK - Ambulatory Encounter Adelita Julio Adelita Julio [place] [facility] Hypertriglyceridemia - Ambulatory Encounter Adelita Julio Adelita Julio [facility] UNK - Ambulatory Encounter Adelita Julio [facility] Chronic kidney disease, unspecified - Ambulatory Encounter [facility]elita Jul[facility] Encounter Fax Status [facility] UNK - Ambulatory Encounter Fax Status [facility] UNK - [facility]ulatory [facility] - Ambulatory Encounter Adelita Julio Adelita Julio Cordovayre [facility] UNK - Ambulatory Encounter Adelita Julio Adelita Julio [place] [facility] UNK - Ambulatory Encounter [facility]elita Julio [facility] - [facility]ulatory Encounter Adelita Julio [facility] - Ambulatory Encounter Love Chisholm [facility] UNK - Ambulatory Encounter Adelita Julio Adelita Julio [facility] UNK - Ambulatory Encounter Adelita Michele Echavarria [facility] Acute bronchitisElevated creatinineLow TSH - Ambulatory Encounter David Acuñaatius [facility] UNK - Ambulatory Encounter David Fletcher [facility] UNK - Ambulatory Encounter David Fletcher [facility] Skin rash - Ambulatory Encounter David Fletcher [facility] UNK - Ambulatory Encounter David Fletcher [facility] UNK - Ambulatory Encounter David Fletcher LinkLogjonathon [facility] UNK - Ambulatory Encounter David Fletcher [facility] UNK - Ambulatory Encounter David Fletcher [facility] UNK - Ambulatory Encounter David Irene [facility] Gout - Ambulatory Encounter David Bejarano [facility] UNK - Ambulatory Encounter David ColeLogjonathon [facility] UNK - Ambulatory Encounter David Fletcher [facility] UNK - Ambulatory Encounter David Irene [facility] Acute bronchitis - Ambulatory Encounter David Bejarano [facility] UNK - Ambulatory Encounter David Fletcher [facility] UNK - Ambulatory Encounter David Marcano [facility] UNK - Ambulatory Encounter Fax Status [facility] UNK - Ambulatory Encounter Fax Status [facility] UNK - Ambulatory Encounter Fax Status [facility] UNK - Ambulatory Encounter David Fletcher [facility] UNK - Ambulatory Encounter David Alejandre [facility] BPHCerumen impaction - Ambulatory Encounter David Fletcher [facility] UNK - Ambulatory Encounter David Marcano Irene [facility] UNK - Ambulatory Encounter David Fletcher [facility] UNK - Ambulatory Encounter David Fletcher [facility] UNK - Ambulatory Encounter David Fletcher [facility] Pneumonia - Ambulatory Encounter David Fletcher LinkLogjonathon [facility] UNK - Ambulatory Encounter David Fletcher [facility] UNK - Ambulatory Encounter David Marcano Irnee [facility] URICough - Ambulatory Encounter David Fletcher [facility] UNK - Ambulatory Encounter Krys Irene [facility] UNK - Ambulatory Encounter David Fletcher [facility] UNK - Ambulatory Encounter David Fletcher [facility] UNK - Ambulatory Encounter David Fletcher LinkLogjonathon [facility] UNK - Ambulatory Encounter Jessa Reyes [facility] UNK - Ambulatory Encounter David Fletcher [facility] UNK - Ambulatory Encounter David Ageesharleneharitha [facility] UNK - Ambulatory Encounter Kaitlin Lion [facility] Services UNK - Ambulatory Encounter David Fletcher [facility] UNK - Ambulatory Encounter Deborah Bhakhrani Deborah Bhakhrani [facility] UNK - Ambulatory Encounter David Bejarano [facility] UNK - Ambulatory Encounter Criss Esparza [facility] - Ambulatory Encounter Deborah Suarezhranamadou Suarezhrani [facility] UNK - Ambulatory Encounter Deborah Combsakhrani Deborah Bhakhrani [facility] UNK - Ambulatory Encounter Deborah Suarezhrani [facility] UNK - Ambulatory Encounter David Bejarano [facility] UNK - Ambulatory Encounter Deborah Sarkar [facility] Hyperopia - OUAstigmatism - OUPresbyopia - OU - Ambulatory Encounter Kaitlin Lion [facility] Public Health Services UNK - Ambulatory Encounter David Fletcher [facility] UNK - Ambulatory Encounter [facility] Depression - Ambulatory Encounter David Bejarano [facility] UNK - Ambulatory Encounter David Bejarano [facility] UNK - Ambulatory Encounter Krys Irene [facility] UNK - Ambulatory Encounter David Fletcher [facility] UNK - Ambulatory Encounter David Fletcher [facility] UNK - Ambulatory Encounter David Fletcher [facility] UNK - Ambulatory Encounter David Fletcher [facility] UNK - Ambulatory Encounter David Fletcher [facility] UNK - Ambulatory Encounter Deboraharitha Irene [facility] UNK - Ambulatory Encounter [facility] Diabetes mellitus, type IIVaccination Against Influenza - Ambulatory Encounter Fax Status [facility] UNK - Ambulatory Encounter Fax Status [facility] UNK - Ambulatory Encounter Fax Status [facility] UNK - Ambulatory Encounter Krys Irene [facility] UNK - Ambulatory Encounter David Adkins [facility] Hypogonadism - Ambulatory Encounter David Fletcher [facility] UNK - Ambulatory Encounter [facility] UN[facility] - Ambulatory Encounter David Fletcher [facility] UNK - Ambulatory Encounter David Ageehot [facility] springs[facility] Libido, decreased - Ambulatory Encounter David Fletcher [facility] UNK - Ambulatory Encounter David Marcano [facility] UNK - Ambulatory Encounter Fax Status [facility] UNK - Ambulatory Encounter Fax Status [facility] UNK - Ambulatory Encounter Fax Status [facility] UNK - Ambulatory Encounter David Fletcher [facility] UNK - Ambulatory Encounter Love Chisholm [facility] UNK - Ambulatory Encounter David Fletcher [facility] UNK - Ambulatory Encounter David ColeAvelinojonathon [facility] UNK - Ambulatory Encounter David Fletcher [facility] UNK - Ambulatory Encounter David Fletcher [facility] UNK - Ambulatory Encounter David Alejandre Irene [facility] Purpura - Ambulatory Encounter David Fletcher [facility] UNK - Ambulatory Encounter David Marcano Irene [facility] UNK - Ambulatory Encounter David ColeLogjonathon [facility] UNK - Ambulatory Encounter Krys Irene [facility] UNK - Ambulatory Encounter David Fletcher [facility] UNK - Ambulatory Encounter David Marcano Irene [facility] SmokerVaccination Against Influenza - Ambulatory Encounter David Fletcher [facility] UNK - Ambulatory Encounter David Marcano Irene [facility] Muscle spasm of backBPHHypothyroidismHypertension VITAL SIGNS No Information Available Allergies No Known Allergy Information REASON FOR REFERRAL Start Date - End Date Service - Nephrology - External - Urology - External - Endocrinology - External RESULTS Date Observation Value Provider Reference Range Interpretation Location hemoglobin A1C, blood, as % of total hemoglobin 5.7 % [facility] 4.8-5.6 High " triiodothyronine (T3), serum 83 ng/dL [facility] 71-180 " thyroxine, serum, total 7.7 ug/dL [facility] 4.5-12.0 " thyroid stimulating hormone, serum 1.640 u[iU]/mL [facility] 0.450-4.500 " LDL cholesterol, serum TRIGHI mg/dL [facility] 0-99 " very low density lipoproteins VLDLCH mg/dL [facility] 5-40 " HDL cholesterol, serum 21 mg/dL [facility] >39 Low " triglyceride, serum, fasting 696 mg/dL [facility] 0-149 Panic high " cholesterol, serum 147 mg/dL [facility] 100-199 " alanine aminotransferase (SGPT), serum 10 1/L [facility] 0-44 " aspartate aminotransferase (SGOT), serum 12 1/L [facility] 0-40 " alkaline phosphatase, serum 76 1/L [facility] 39-117 " bilirubin, serum, total 0.2 mg/dL [facility] 0.0-1.2 " albumin/globulin ratio, serum 1.4 [facility] 1.2-2.2 " globulin, serum 3.1 [facility] 1.5-4.5 " albumin, serum 4.2 g/dL [facility] 3.6-4.8 " protein, total, serum 7.3 g/dL [facility] 6.0-8.5 " calcium, serum 9.2 mg/dL [facility] 8.6-10.2 " carbon dioxide, venous blood 12 mmol/L [facility] 20-29 Low " chloride, serum 105 mmol/L [facility] 96-106 " potassium, serum 4.5 mmol/L [facility] 3.5-5.2 " sodium, serum 135 mmol/L [facility] 134-144 " urea nitrogen/creatinine ratio, serum 22 [facility] 10-24 " eGFR if 57 mL/min/((173/100).m2) [facility] >59 Low " Estimated Glomerular Filtration Rate (calc) 49 mL/min/((173/100).m2) [facility] >59 Low " creatinine, serum 1.48 mg/dL [facility] 0.76-1.27 High " urea nitrogen, blood 33 mg/dL [facility] 8-27 High " blood glucose, random 162 mg/dL [facility] 65-99 High microalbumin/creatinine ratio, urine 17.8 MG/G CREAT [facility] 0.0-30.0 " microalbumin/total urine volume 24.0 mg/L [facility] Not Estab. " creatinine, random, urine 135.2 mg/dL [facility] Not Estab. uric acid, serum 10.1 mg/dL [facility] 3.7-8.6 High hemoglobin A1C, blood, as % of total hemoglobin 5.6 % [facility] thyroid stimulating hormone, serum 0.188 u[iU]/mL [facility] [...] Fluzone Quadrivalent IM PF 0.5 ML [facility] [address]-16 San[employer]i Pasteur 0.5 mL [id number] completed HISTORY OF MEDICATION USE Medication Instructions Dates Provider Comments ALLOPURINOL 100 MG ORAL TABLET one tablet once daily Adelita Julio GEMFIBROZIL 600 MG ORAL TABLET one tablet twice daily Adelita Julio DOXAZOSIN MESYLATE 4 MG ORAL TABLET take 1 tablet two times daily Adelita Kim HYDROCORTISONE 2.5 % EXTERNAL CREAM apply to affected area twice a day Adelita Kim PREDNISONE 20 MG ORAL TABLET take 2 tabs By Mouth for first 5 days, finally 1 tab per day last 5 days Adelita DAVISUCH VERIO STRP CHECK BLOOD SUGAR 1 TO [...] take one tab By Mouth Every Day - Adelita Kim METOPROLOL SUCC ER 25MG TABLET TAKE 1 TABLET BY MOUTH DAILY David Fletcher AMLODIPINE 10MG TAB TAKE 1 TABLET BY MOUTH DAILY David Fletcher LISINOPRIL 20MG TAB TAKE 1 TABLET BY MOUTH DAILY David Fletcher TAMSULOSIN HCL 0.4 MG ORAL CAPSULE take 2 caps By Mouth Every Day - Adelita Julio MELOXICAM 15 MG ORAL TABLET take one tab By Mouth Every Day As Needed for pain - Adelita Julio LEVOTHYROXINE SODIUM 25 MCG ORAL TABLET One tab by mouth daily - Adelita Julio CYCLOBENZAPRINE HCL 10 MG ORAL TABLET 1 By Mouth three times a day as needed for muscle spasm - Adelita Julio SOCIAL HISTORY Date Observation Value Provider drug use, illicit Never Love Chisholm " alcohol use Never Love Chisholm " sexual orientation Heterosexual Love Chisholm " is there any chance that you could be ? No Love Chisholm " assessment of health literacy ([facility] 2014 Standards, 3C10) Adequate Love Chisholm " passive cigarette smoke exposure No Love Chisholm " smoking status former smoker Love Chisholm " Exercise Program Referral T Love Chisholm " Weight Management Counseling Provided T Love Chisholm " Nutrition intervention T Love Chisholm Exercise Program Referral T Adelita Julio " Weight Management Counseling Provided T Adelita Julio " Nutrition intervention T Adelita Julio " social history reviewed E&M reviewed today Cathi Echavarria " sexual orientation Heterosexual Cathi Echavarria " assessment of health literacy ([facility] 2014 Standards, 3C10) Adequate Cathi Echavarria " smoking status former smoker Cathi Echavarria Exercise Program Referral T Caitlin Fletcher " Weight Management Counseling Provided T Iris Chance " Nutrition intervention T Iris Chance " drug use, illicit Never Iris Chance " alcohol use Never Iris Chance " social history reviewed E&M reviewed today Iris Chance " sexual orientation Heterosexual Iris Chance " is there any chance that you could be ? No Iris Chance " assessment of health literacy ([facility] 2014 Standards, 3C10) Adequate Iris Chance " passive cigarette smoke exposure No Iris Chance " smoking status former smoker Iris Chance Exercise Program Referral T Deborath Irene " Weight Management Counseling Provided T Deborath Irene " Nutrition intervention T Deborath Irene " drug use, illicit Never Deborath Irene " alcohol use Never Debora Irnee " social history reviewed E&M reviewed today ora [facility] " sexual orientation Heterosexual Debora Irene " is there any chance that you could be ? No Deborath Irene " assessment of health literacy ([facility] 2014 Standards, 3C10) Adequate Debora Irene " passive cigarette smoke exposure No Debora Irene " [facility], [facility] Never Debora Irene " alcohol use Never Debora Irene " social history reviewed E&M reviewed today Deb [facility] " assessment of health literacy ([facility] 2014 Standards, 3C10) Adequate Debora Irene " is there any chance that you could be ? No Debora Irene " sexual orientation Heterosexual Debora [facility] " Exercise Program Referral T ora [facility] " Weight Management Counseling Provided T Debora [facility] " Nutrition intervention T Debora Irene " passive cigarette smoke exposure No Debora Irene " [facility] Referral T Debora [facility] " Weight Management Counseling Provided T [facility] " Nutrition intervention T Debora Irene " drug use, illicit Never Debora Irene " alcohol use Never Debora Irene " social history reviewed E&M reviewed today Deb [facility] " assessment of health literacy ([facility] 2013 Standards, 3C10) Adequate Debora [facility] " is there any chance that you could be ? No Debora Irene " sexual orientation Heterosexual Debora [facility] " passive cigarette smoke exposure No Debora Irene " [facility] Referral T Debora Irene " Weight Management Counseling Provided T Debora Irene " Nutrition intervention T Debora Irene " drug use, illicit Never Debora Irene " alcohol use Never Debora Irene " social history reviewed E&M reviewed today Deb [facility] " sexual orientation [facility] " is there any chance that you could be ? No Debora Irene " assessment of health literacy ([facility] 2014 Standards, 3C10) Adequate Debora Irene " passive cigarette smoke exposure No Debora Irene " [facility] Referral T Deborath Irene " Weight Management Counseling Provided T DeboraIrene " Nutrition intervention T Debora Irene " drug use, illicit Never Deborath Irene " alcohol use Never Deborath Irene " social history reviewed E&M reviewed today Debora Irene " sexual orientation Heterosexual Deborath Irene " is there any chance that you could be ? No Deborath Irene " assessment of health literacy ([facility] 2014 Standards, 3C10) Adequate Deborath Irene " passive cigarette smoke exposure No Deborath Irene " smoking status [facility] Referral T Caitlin Fletcher " Weight Management Counseling Provided T Caitlin Fletcher " Nutrition intervention T Caitlin Chance " drug use, illicit Never Iris Chance " alcohol use Never Iris Chance " social history reviewed E&M reviewed today Caitlin Fletcher " sexual orientation Heterosexual Caitlin Fletcher " is there any chance that you could be ? No Iris Chance " assessment of health literacy ([facility] 2014 Standards, 3C10) Adequate Iris Chance " passive cigarette smoke exposure No Iris Chance " smoking status current every day smoker Caitlin Fletcher Exercise Program Referral T Debora Irene " Weight Management Counseling Provided T ados " Nutrition intervention T Deb " drug use, illicit Never Debora Irene " alcohol use Never Deborath Irene " social history reviewed E&M reviewed today [facility] " assessment of health literacy ([facility] 2014 Standards, 3C10) Adequate Debora Irene " is there any chance that you could be ? No Deborath Irene " sexual orientation Heterosexual Deborath Irene " passive cigarette smoke exposure No Deborath Irene " smoking status former [facility] drug use, illicit Never Deborath Irene " alcohol use Never Deborath Irene " social history reviewed E&M reviewed today Deborath Irene " is there any chance that you could be ? No Deborath Irene " sexual orientation Heterosexual Deborath Irene " assessment of health literacy ([facility] 2014 Standards, 3C10) Adequate Deborath Irene " passive cigarette smoke exposure No Deborath Irene " smoking status former [facility] " Exercise Program Referral T Deborath Irene [...] " social [facility] " is there any chance that you could be ? No Deborath Irene " sexual orientation Heterosexual Deborath Irene " passive cigarette smoke exposure No Debora Irene " smoking status former smoker Debhot [place] Irene Exercise Program Referral T Iris Chance " [...] Iris Chance " assessment of health literacy ([facility] 2014 Standards, 3C10) Adequate Iris Chance " smoking status former smoker Iris Chance " passive cigarette smoke exposure No Iris Chance Exercise Program Referral T Deborath Irene " Weight Management Counseling Provided T Debora Irene " Nutrition intervention T Debora Irene " drug use, illicit Never Debora Irene " alcohol use Never Debora Irene " [facility] " is there any chance that you could be ? No Deborath Irene " assessment of health literacy ([facility] 2014 Standards, 3C10) Adequate Deborath Irene " sexual orientation Heterosexual Deborath Irene " passive cigarette smoke exposure No Deborath Irene Exercise Program Referral T Deborath Irene " Weight Management Counseling Provided T Debora Irene " Nutrition intervention T Debora Irene " drug use, illicit Never Deborath Irene " alcohol use Never Deborath Irene " social history reviewed E&M reviewed [facility] " is there any chance that you could be ? [facility] " [facility] " assessment of health literacy ([facility] 2014 Standards, 3C10) Adequate Debora Irene " passive cigarette smoke exposure [facility] " smoking status current every day [facility] sexual orientation Heterosexual Love Chisholm " sex at Male Love Yehz " drug use, illicit Never Love Chisholm " alcohol use Never Love Chisholm " smoking status current every day smoker Love Chisholm " is there any chance that you could be ? No Love Chisholm " assessment of health literacy ([facility] 2014 Standards, 3C10) Adequate Love Chisholm " passive cigarette smoke exposure No Love Chisholm " Exercise Program Referral T Love Chisholm " Weight Management Counseling Provided T Love Chisholm " Nutrition intervention T Love Chisholm Exercise Program Referral T [facility] " Weight Management Counseling Provided T [facility] " Nutrition intervention T [place] [facility] " drug use, illicit Never Debhot [place] [facility] " alcohol use Never Debhot [place] [facility] " social history reviewed E&M reviewed today [facility] " is there any chance that you could be ? No Debora Irene " passive cigarette smoke exposure No Debhot [place] [facility] " smoking status current every day smoker [facility] " assessment of health literacy ([facility] 2014 Standards, 3C10) Adequate [facility] Exercise Program Referral T [facility] " Weight Management Counseling Provided T [facility] " Nutrition intervention T Debhot [place] [facility] " drug use, illicit Never Debhot [place] [facility] " alcohol use Never Debhot [place] [facility] " social history reviewed E&M reviewed today [facility] " is there any chance that you could be ? No Debora Irene " passive cigarette smoke exposure [facility] " smoking status current every day [facility] " assessment of health literacy ([facility] 2014 Standards, 3C10) Adequate [facility] drug use, illicit [facility] " [facility] " patient considered to be homeless No [facility] " is there any chance that you could be ? No Krys Irene " passive cigarette smoke exposure No Krys Irene " smoking status current every day smoker Krys Irene " assessment of health literacy ([facility] 2014 Standards, 3C10) Adequate Krys Irene " Exercise Program Referral T Krys Irene " Weight Management Counseling Provided T Krys Irene " Nutrition intervention T Krys Irene FUNCTIONAL STATUS No Information Available MENTAL STATUS Date Observation Value Provider Generalized Anxiety Disorder Questionnaire - Question 2 0 Love Chisholm " Generalized Anxiety Disorder Questionnaire - Question 1 0 Love Chisholm assessment of mood and affect E&M no [...] Disorder Questionnaire - Question 2 0 Krys rIene " Generalized Anxiety Disorder Questionnaire - Question [...] Disorder Questionnaire - Question 1 0 Jesusitaharitha Irene assessment of judgment and insight E&M [...] Anxiety Disorder Questionnaire - Question 1 0 [facility] Irene assessment of judgment and insight E&M intact David D Chance " mental status examination: orientation E&M oriented to time, place, and person David D Chance " assessment of mood and affect E&M no depression, anxiety, or agitation David D Chance " Generalized Anxiety Disorder Questionnaire - Question 2 0 Krys Irene " Generalized Anxiety Disorder Questionnaire - Question 1 0 Jesusita Irene assessment of judgment and insight E&M intact David D Chance " mental status examination: orientation E&M oriented to time, place, and person David D Chance " assessment of mood and affect E&M no depression, anxiety, or agitation David D Chance " Generalized Anxiety Disorder Questionnaire - Question 2 0 Krys Irene " Generalized Anxiety Disorder Questionnaire - Question 1 0 [facility] Irene MEDICAL EQUIPMENT No Information Available FAMILY HISTORY No Information Available INSURANCE PROVIDERS No Information Available ADVANCE DIRECTIVES No Information Available TREATMENT PLAN Date Name Microalb/Creat Ratio, Randm Ur Hemoglobin A1c Lipid Panel Comp. Metabolic Panel (14) TSH+T4+T3H Uric Acid, Serum TSH Testosterone,Free and Total CBC With Differential/Platelet CBC With Differential/Platelet TSH - - - - - Ofc Vst, Est Level III First Vx - Ix admin for Medicare patients Fluzone Quadrivalent IM Prefilled Syringe 0.5 mL (PF) Ofc Vst, Est Level IV Vaccines Ordered - Print Consent/Declination Forms Est Patient Exp Problem - 15976 Est Patient Exp Problem - 53748 Est Patient Exp Problem - 96325 Est Patient Exp Problem - 49300 Ear Irrigation Est Patient Exp Problem - 17713 Est Patient Exp Problem - 14329 Est Patient Exp Problem - 58171 Est Patient Exp Problem - 93819 Est Patient Exp Problem - 32187 New Patient Intermediate Opth - 59357 Spherocyl, bif, plano to +/- 4.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 sphere, 0.12 to 2.00d cyl, per lens Frames, purchases Est Patient Exp Problem - 35473 Diabetes Education Vision Est Patient Exp Problem - 08058 HEMOGLOBIN A1C - In House INFLUENZA VACCINE QUADRIVALENT 3 YRS PLUS IM Admin of Vaccine - Injection - 1 Est Patient Exp Problem - 91010 Est Patient Exp Problem - 42574 Est Patient Detailed - 19834 Est Patient Exp Problem - 84887 INFLUENZA VACCINE QUADRIVALENT 3 YRS PLUS IM Admin of Vaccine - Injection - 1 Est Patient Detailed - 63527 New Patient Comprehensive - 11219 HISTORY OF PROCEDURES Procedure Date Procedure Name Provider Procedure Notes Status First Vx - Ix admin for Medicare patients Adelita Kim completed Fluzone Quadrivalent IM Prefilled Syringe 0.5 mL (PF) Adelita Kim completed Vaccines Ordered - Print Consent/Declination Forms Adelita Kim completed Ear Irrigation David Fletcher pt tolerated procedure well; hearing improved afterwards completed New Patient Intermediate Opt - 31809 Deborah Marquez completed Spherocyl, bif, plano to +/- 4.00d sphere, 0.12 to 2.00d cyl, per lens Criss[employer] Wave completed Frames, purchases Innovacene Frame #[id number] (FFS) Pd 65.00 completed HEMOGLOBIN A1C - In House David Fletcher completed GOALS No Information Available HEALTH CONCERNS No Information Available
--- OUTSIDE RECORDS SUMMARY | 2019-03-15 06:35 | XMS REPORT ---
Author Author Admin, [place] Organization Unknown Address Unknown Phone Unavailable PROBLEMS Condition Status Date Provider Notes Chronic kidney disease, unspecified active Adelita Julio [...] Encounter Diagnosis - Ambulatory Encounter Adelita Kim [facility] UNK - Ambulatory Encounter Adelitastacy Kim [facility] Chronic kidney disease, unspecified - Ambulatory Encounter Adelita Julio Adelita Julio LinkLogic [facility] UNK - Ambulatory Encounter Fax Status LinkLogic [facility] UNK - Ambulatory Encounter Fax Status LinkLogic [facility] UNK - Ambulatory Encounter [facility] - Ambulatory Encounter Adelita Julio Adelita Julio Carleen Munoz [facility] UNK - Ambulatory Encounter Adelita Julio Adelita Julio Love Chishlom [facility] UNK - Ambulatory Encounter [facility]elita Julio [facility] - [facility]ulatory Encounter Adelita Julio [facility]ita [facility]K - Ambulatory Encounter Love Chisholm [facility] UNK - Ambulatory Encounter Adelita Julio Adelita Julio [facility] UNK - Ambulatory Encounter Adelita Julio Adelita Julio Echavarria [facility] Acute bronchitisElevated creatinineLow TSH - Ambulatory Encounter David Gunderson [facility] UNK - Ambulatory Encounter David Fletcher [facility] UNK - Ambulatory Encounter David Fletcher [facility] Skin rash - Ambulatory Encounter David Fletcher [facility] UNK - Ambulatory Encounter David Fletcher [facility] UNK - Ambulatory Encounter David ColeLogjonathon [facility] UNK - Ambulatory Encounter David Fletcher [facility] UNK - Ambulatory Encounter David Fletcher [facility] UNK - Ambulatory Encounter David Marcano Irene [facility] Gout - Ambulatory Encounter David Fletcher LinkLogjonathon [facility] UNK - Ambulatory Encounter David Fletcher LinkLogjonathon [facility] UNK - Ambulatory Encounter David Fletcher [facility] UNK - Ambulatory Encounter David Marcano [facility] Acute bronchitis - Ambulatory Encounter David Fletcher LinkLogic [facility] UNK - Ambulatory Encounter David Fletcher [facility] UNK - Ambulatory Encounter David Marcano Irene [facility] UNK - Ambulatory Encounter Fax Status LinkLogic [facility] UNK - Ambulatory Encounter Fax Status LinkLogic [facility] UNK - Ambulatory Encounter Fax Status LinkLogic [facility] UNK - Ambulatory Encounter David Fletcher [facility] UNK - Ambulatory Encounter David Ageeorath Irene [facility] BPHCerumen impaction - Ambulatory Encounter David Fletcher [facility] UNK - Ambulatory Encounter [facility]ano [facility] - [facility] En[facility] - Ambulatory Encounter aDvid [facility] - [facility]ulatory Encounter [facility] Pneumonia - Ambulatory Encounter David ColeLogjonathon [facility] UNK - Ambulatory Encounter [facility] - Ambulatory Encounter David Marcano Irene [facility] URICough - Ambulatory Encounter David Fletcher LinkLogjonathon [facility] UNK - Ambulatory Encounter Cyndieoraharitha Irene [facility] - Ambulatory Encounter David [facility] - [facility]ulatory Encounter David [facility] - Ambulatory Encounter David ColeLogjonathon Ageeoraharitha Irene [facility] UN[facility] - Ambulatory Encounter Jessa Reyes [facility] UNK - Ambulatory Encounter David [facility] - Ambulatory Encounter David Ageeoraharitha Irene [facility] UNK - Ambulatory Encounter Kaitlin Lion [facility] UNK - Ambulatory Encounter David Fletcher [facility] UNK - Ambulatory Encounter Deborah Bhakhrani Deborah Bhakhrani [facility] UNK - Ambulatory Encounter [facility] - [facility]ulatory Encounter Criss [...] Vision UNK - Ambulatory Encounter David Bejarano [facility] UNK - Ambulatory Encounter Deborah Bhakhrani Deborah Bhakhrani Elayne Sarkar [facility] Hyperopia - OUAstigmatism - OUPresbyopia - OU - Ambulatory Encounter Kaitlin Ayad [facility] Services UNK - Ambulatory Encounter David Fletcher [facility] UNK - Ambulatory Encounter David Marcano [facility] Depression - Ambulatory Encounter David Fletcher LinkLogjonathon [facility] UNK - Ambulatory Encounter David Fletcher DouglasLog [facility] UNK - Ambulatory Encounter Debnaveed Irene [facility] UNK - Ambulatory Encounter David [facility] - Ambulatory Encounter David [facility]K - Ambulatory Encounter David [facility] - Ambulatory Encounter David [facility] - Ambulatory Encounter David [facility] - Ambulatory Encounter Deboraharitha [facility] UNK - Ambulatory Encounter David Ageesharleneharitha [facility] Diabetes mellitus, type IIVaccination Against Influenza - Ambulatory Encounter Fax Status LinkLogic [facility] UN[facility] - Ambulatory Encounter Fax Status LinkLogic [facility] UNK - Ambulatory Encounter Fax Status LinkLogic [facility] UNK - Ambulatory Encounter Debsharleneharitha Irene [facility] UNK - Ambulatory Encounter David Adkins [facility] Hypogonadism - Ambulatory Encounter David [facility]K - Ambulatory Encounter David Marcano Irene [facility] UNK - Ambulatory Encounter David [facility] UNK - Ambulatory Encounter David Marcano Irene [facility] Libido, decreased - Ambulatory Encounter David [facility] UNK - Ambulatory Encounter David Marcano Irene [facility] UNK - Ambulatory Encounter Fax Status LinkLogic [facility] UNK - Ambulatory Encounter Fax Status LinkLogic [facility] UNK - Ambulatory Encounter Fax Status LinkLogic [facility] UNK - Ambulatory Encounter David [facility] - Ambulatory Encounter Love Chisholm [facility] UNK - Ambulatory Encounter David Fletcher [facility] UNK - Ambulatory Encounter David Bejarano [facility] UNK - Ambulatory Encounter David Fletcher [facility] UNK - Ambulatory Encounter David [facility] UNK - Ambulatory Encounter David Alejandre Irene Love Chisholm [facility] Purpura - Ambulatory Encounter David Fletcher [facility] UNK - Ambulatory Encounter David Marcano Irene [facility] K - Ambulatory Encounter David Fletcher [facility] Encounter Cyndienaveed Hermanados [facility] K - Ambulatory Encounter David Fletcher [facility] K - Ambulatory Encounter David Marcano Irene [facility] SmokerVaccination Against Influenza - Ambulatory Encounter [facility] David Marcano Irene [facility] Muscle spasm of backBPHHypothyroidismHypertension VITAL SIGNS [...] as % of total hemoglobin 5.6 % [facility] thyroid stimulating hormone, serum 0.188 [...] Status Fluzone Quadrivalent IM PF 0.5 ML [facility] [id number] San[employer]i Pasteur 0.5 mL [id number] completed HISTORY OF MEDICATION USE Medication Instructions Dates Provider Comments HYDROCORTISONE 2.5 % EXTERNAL CREAM apply to affected area twice a day Adelita Kim PREDNISONE 20 MG ORAL TABLET take 2 tabs By Mouth for first 5 days, finally 1 tab per day last 5 days Adelita HOLUGIN VERIO STRP CHECK BLOOD SUGAR 1 TO 3 TIMES DAILY David COWART LANCETS 33G CHECK BLOOD SUGAR 1 [...] Cathi Echavarria " assessment of health literacy ([facility] 2014 Standards, 3C10) Adequate Cathi Echavarria " smoking status former smoker Cathi Echavraria Exercise Program Referral T Caitlin Fletcher " Weight Management Counseling Provided T Caitlin Fletcher " Nutrition intervention Talia Fletcher " drug use, illicit Never Caitlin Fletcher " alcohol use Never Iris Chance " social history reviewed E&M reviewed today Iris Chance " sexual orientation Heterosexual Iris Chance " is there any chance that you could be ? No Iris Chance " assessment of health literacy ([facility] 2014 Standards, 3C10) Adequate Iris Chance " passive cigarette smoke exposure No Iris Chance " smoking status former smoker Iris Chance Exercise Program Referral T Debora Irene " Weight Management Counseling Provided T Debora Irene " Nutrition intervention T Debora Irene " drug use, illicit Never Debora Irene " alcohol use Never Debora Irene " social history reviewed E&M reviewed today Debora [facility] " sexual orientation Heterosexual Debora [facility] " is there any chance that you could be ? No Debora Irene " assessment of health literacy ([facility] 2014 Standards, 3C10) Adequate Debora Irene " passive cigarette smoke exposure No Debora Irene " [facility], illicit Never Debora [facility] " alcohol use Never Debora Irene " social history reviewed E&M reviewed today Deblackawaxen [facility] " assessment of health literacy ([facility] 2014 Standards, 3C10) Adequate Debora Irene " is there any chance that you could be ? No Debora Irene " sexual orientation Heterosexual Debora [facility] " Exercise Program Referral T Deb Irene " Weight Management Counseling Provided T Deb Irene " Nutrition intervention T Debora Irene " passive cigarette smoke exposure No Debora Irene " smoking status [facility] Referral T Debora Irene " Weight Management Counseling Provided T Debora " Nutrition intervention T Debora " drug use, illicit Never Debora Irene " alcohol use Never Debora Irene " social history reviewed E&M reviewed today Debora [facility] " assessment of health literacy ([facility] 2014 Standards, 3C10) Adequate Debora Irene " is there any chance that you could be ? No Debora Irene " sexual orientation Heterosexual Debora Irene " passive cigarette smoke exposure No Debora Irene " [facility] status [facility] Referral T Debora Irene " Weight Management Counseling Provided T Debora Irene " Nutrition intervention T Debora Irene " drug use, illicit Never Debora Irene " alcohol use Never Debora Irene " social history reviewed E&M reviewed today Debora Irene " sexual orientation [facility] " is there any chance that you could be ? No Deborath Irene " assessment of health literacy ([facility] 2014 Standards, 3C10) Adequate Deborath Irene " passive cigarette smoke exposure No Debora Irene " [facility] status [facility] Referral T Debora Irene " Weight Management Counseling Provided T Debora Irene " Nutrition intervention T Debora Irene " drug use, illicit Never Debora Irene " alcohol use Never Debora Irene " social history reviewed E&M reviewed today Deblackawaxen [facility] " sexual orientation Heterosexual [facility] " is there any chance that you could be ? No Debora Irene " assessment of health literacy ([facility] 2014 Standards, 3C10) Adequate Debora Irene " passive cigarette smoke exposure No Debora Irene " [facility] status [facility] Program Referral T Iris Chance [...] Iris Chance " assessment of health literacy ([facility] 2014 Standards, 3C10) Adequate Iris Chance " passive cigarette smoke exposure No Iris Chance " smoking status current every day smoker Iris Chance Exercise Program Referral T Debora Irene " Weight Management Counseling Provided T Debora Irene " Nutrition intervention T Debora Irene " drug use, illicit Never Debora Irene " alcohol use Never Debora Irene " social history reviewed E&M reviewed [facility] " assessment of health literacy ([facility] 2014 Standards, 3C10) Adequate [facility] " is there any chance that you could be ? No Debora Irene " sexual orientation Heterosexual [facility] " passive cigarette smoke exposure No Debora Irene " smoking status former [facility] drug use, illicit [facility] " alcohol use [facility] " social history reviewed E&M reviewed today [facility] " is there any chance that you could be ? No Deborath Irene " sexual orientation Heterosexual [facility] " assessment of health literacy ([facility] 2014 Standards, 3C10) Adequate Deborath Irene " passive cigarette smoke exposure No Deb Irene " smoking status [facility] " Exercise Program Referral T Debora Irene " Weight Management Counseling Provided T Debora Irene " Nutrition intervention T Deborath Irene time of call 12/10/2017 11:02 AM Kaitlin Lion time of call 11/29/2017 9:56 AM Kaitlin Lion [facility] " Weight Management Counseling Provided T Deblackawaxen Irene " Nutrition intervention T Deb Irene " drug use, illicit Never [facility] " alcohol use [facility] " social history reviewed E&M reviewed today [facility] " is there any chance that you could be ? No Debora Irene " sexual orientation Heterosexual [facility] " passive cigarette smoke exposure No Deblackawaxen Irene " smoking status former smoker [facility] Exercise Program Referral T Caitlin Fletcher [...] Iris Chance " assessment of health literacy ([facility] 2014 Standards, 3C10) Adequate Iris Chance " smoking status former smoker Iris Chance " passive cigarette smoke exposure No Iris Chance [facility] " Weight Management Counseling Provided T Debora Irene " Nutrition intervention T Debora Irene " drug use, illicit Never Deborath Irene " alcohol use [facility] " smoking status [facility] " is there any chance that you could be ? No Deborath Irene " assessment of health literacy ([facility] 2014 Standards, 3C10) Adequate Deborath [facility] " sexual orientation Heterosexual [facility] " passive cigarette smoke exposure No [facility] Exercise Program Referral T lackawaxen [facility] " Weight Management Counseling Provided T [facility] " Nutrition intervention T Irene " drug use, illicit Never Irene " alcohol use Never [facility] " social history reviewed E&M reviewed today lackawaxen [facility] " is there any chance that you could be ? No Deb Irene " sexual orientation [facility] " assessment of health literacy ([facility] 2014 Standards, 3C10) Adequate Deb [facility] " passive cigarette smoke exposure No [facility] " smoking status current every day smoker [facility] sexual orientation Heterosexual Love Chisholm " sex at Male [facility] " drug use, illicit Never Love Chisholm " alcohol use Never Love Chisholm " smoking status current every day smoker Love Chisholm " is there any chance that you could be ? No Love Chisholm " assessment of health literacy ([facility] 2014 Standards, 3C10) Adequate Love Chisholm " passive cigarette smoke exposure No Love Chisholm " Exercise Program Referral T Love Chisholm " Weight Management Counseling Provided T Love Chisholm " Nutrition intervention T Love Chisholm Exercise Program Referral T [facility] " Weight Management Counseling Provided T [facility] " Nutrition intervention T Irene " drug use, illicit Never [facility] " alcohol use Never [facility] " social history reviewed E&M reviewed today [facility] " is there any chance that you could be ? No [facility] " passive cigarette smoke exposure No [facility] " smoking status current every day smoker [facility] " assessment of health literacy ([facility] 2014 Standards, 3C10) Adequate [facility] Exercise Program Referral T lackawaxen [facility] " Weight Management Counseling Provided T [facility] " Nutrition intervention T [facility] " drug use, illicit Never [facility] " alcohol use Never [facility] " social history reviewed E&M reviewed today [facility] " is there any chance that you could be ? No Cyndielackawaxenharitha HermanIrene " passive cigarette smoke exposure No [facility] " smoking status current every day smoker [facility] " assessment of health literacy ([facility] 2014 Standards, 3C10) Adequate [facility] use, illicit Never [facility] " alcohol use Never [facility] " patient considered to be homeless [facility] " is there any chance that you could be ? No [facility] " passive cigarette smoke exposure No [facility] " smoking status current every day smoker [facility] " assessment of health literacy ([facility] 2014 Standards, 3C10) [facility]quate [facility] " [facility] " [facility] " Nutrition intervention T [facility] FUNCTIONAL STATUS No Information Available MENTAL STATUS [...] Anxiety Disorder Questionnaire - Question 2 0 [facility] " Generalized Anxiety Disorder Questionnaire - Question 1 0 [facility] assessment of judgment and insight E&M intact David Fletcher " mental status examination: orientation E&M oriented to time, place, and person David Fletcher " assessment of mood and affect E&M no depression, anxiety, or agitation David Fletcher " Generalized Anxiety Disorder Questionnaire - Question 2 0 Cyndielackawaxen Irene " Generalized Anxiety Disorder Questionnaire - Question 1 0 [facility] assessment of judgment and insight [...] Disorder Questionnaire - Question 1 0 [facility] assessment of judgment and insight E&M [...] Anxiety Disorder Questionnaire - Question 1 0 [facility] assessment of judgment and insight [...] Disorder Questionnaire - Question 2 0 [facility] " Generalized Anxiety Disorder Questionnaire - Question 1 0 [facility] assessment of judgment and insight E&M intact David D Chance " mental status examination: orientation E&M oriented to time, place, and person David D Chance " assessment of mood and affect E&M no depression, anxiety, or agitation David D Chance " Generalized Anxiety Disorder Questionnaire - Question 2 0 lackawaxen Irene " Generalized Anxiety Disorder Questionnaire - Question 1 0 [facility] assessment of judgment and insight [...] Anxiety Disorder Questionnaire - Question 2 0 lackawaxen Irene " Generalized Anxiety Disorder Questionnaire - Question 1 0 [facility] assessment of judgment and insight E&M intact David D Chance " mental status examination: orientation E&M oriented to time, place, and person David D Chance " assessment of mood and affect E&M no depression, anxiety, or agitation David D Chance " Generalized Anxiety Disorder Questionnaire - Question 2 0 lackawaxen Irene " Generalized Anxiety Disorder Questionnaire - Question 1 0 [facility] assessment of judgment and insight E&M intact David D Chance " mental status examination: orientation E&M oriented to time, place, and person David D Chance " assessment of mood and affect E&M no depression, anxiety, or agitation David D Chance " Generalized Anxiety Disorder Questionnaire - Question 2 0 [facility] Irene " Generalized Anxiety Disorder Questionnaire - Question 1 0 [facility] MEDICAL EQUIPMENT No Information Available FAMILY HISTORY No Information Available INSURANCE PROVIDERS No Information Available ADVANCE DIRECTIVES No Information Available TREATMENT PLAN Date Name Microalb/Creat Ratio, Randm Ur Hemoglobin A1c Lipid Panel Comp. Metabolic Panel (14) TSH+T4+T3H Uric Acid, Serum TSH Testosterone,Free and Total CBC With Differential/Platelet CBC With Differential/Platelet TSH - - - - First Vx - Ix admin for Medicare patients Fluzone Quadrivalent IM Prefilled Syringe 0.5 mL (PF) Ofc Vst, Est Level IV Vaccines Ordered - Print Consent/Declination Forms Est Patient Exp Problem - 63334 Est Patient Exp Problem - 50216 Est Patient Exp Problem - 15152 Est Patient Exp Problem - 03803 Ear Irrigation Est Patient Exp Problem - 92656 Est Patient Exp Problem - 00657 Est Patient Exp Problem - 53084 Est Patient Exp Problem - 04163 Est Patient Exp Problem - 25829 New Patient Intermediate Opth - 47470 Spherocyl, bif, plano to +/- 4.00d sphere, 0.12 to 2.00d cyl, per lens Frames, purchases Est Patient Exp Problem - 54757 Diabetes Education Vision Est Patient Exp Problem - 46378 HEMOGLOBIN A1C - In House INFLUENZA VACCINE QUADRIVALENT 3 YRS PLUS IM Admin of Vaccine - Injection - 1 Est Patient Exp Problem - 01832 Est Patient Exp Problem - 44972 Est Patient Detailed - 55617 Est Patient Exp Problem - 03827 INFLUENZA VACCINE QUADRIVALENT 3 YRS PLUS IM Admin of Vaccine - Injection - 1 Est Patient Detailed - 99021 New Patient Comprehensive - 91167 HISTORY OF PROCEDURES Procedure Date Procedure Name Provider Procedure Notes Status First Vx - Ix admin for Medicare patients Adelita Kim completed Fluzone Quadrivalent IM Prefilled Syringe 0.5 mL (PF) Adelita Kim completed Vaccines Ordered - Print Consent/Declination Forms Adelita Kim completed Ear Irrigation David Fletcher pt tolerated procedure well; hearing improved afterwards completed New Patient Intermediate Opt - 29824 Deborah Marquez completed Spherocyl, bif, plano to +/- 4.00d sphere, 0.12 to 2.00d cyl, per lens [facility] completed Frames, purchases [facility] Frame #1006 (FFS) Pd 65.00 completed HEMOGLOBIN A1C - In House David Fletcher completed GOALS No Information Available HEALTH CONCERNS No Information Available
--- OUTSIDE RECORDS SUMMARY | 2019-03-15 06:36 | XMS REPORT ---
Author Author Admin, Rueter Organization Unknown Address Unknown Phone Unavailable PROBLEMS [...] Encounter Diagnosis - Ambulatory Encounter Adelita Kim [facility] UNK - Ambulatory Encounter Adelita Julio Chisholm [facility] UNK - Ambulatory Encounter Adelita Juliochester Kim LinkLogic [facility] UNK - Ambulatory Encounter Fax Status LinkLogic [facility] UNK - Ambulatory Encounter Fax Status LinkLogic [facility] UNK - Ambulatory [facility] - Ambulatory Encounter Adelita Julio Adelitastacy Kim [facility] UNK - Ambulatory Encounter Adelita Julio Adelitastacy Chisholm [facility] Hypertriglyceridemia - Ambulatory Encounter Adelita Julio Adelita Julio [facility] UNK - Ambulatory Encounter Adelita Julio Adelitastacy Cordovayre [facility] Chronic kidney disease, unspecified - Ambulatory Encounter Adelita Julio [facility] - Ambulatory Encounter Fax Status LinkLogic [facility] Services UNK - Ambulatory Encounter Fax Status LinkLog[facility] UNK - Ambulatory Encounter Fax Status [facility]Log[facility] UNK - Ambulatory Encounter Adelita Julio Adelitastacy Munoz [facility] UNK - Ambulatory Encounter Adelita Julio Adelitastacy Chisholm [facility] UNK - Ambulatory Encounter Adelita Julio Adelitastacy Kim LinkLogic [facility] UNK - Ambulatory Encounter Adelita Kim [facility] UNK - Ambulatory Encounter Love Chisholm [facility] UNK - Ambulatory Encounter Adelita Kim Adelitastacy Kim [facility] UNK - Ambulatory Encounter Adelita Chisholm Cathi Echavarria [facility] Acute bronchitisElevated creatinineLow TSH - Ambulatory Encounter David Gunderson [facility] UNK - Ambulatory Encounter David Fletcher [facility] UNK - Ambulatory Encounter David Fletcher [facility] Skin rash - Ambulatory Encounter David Fletcher [facility] UNK - Ambulatory Encounter David Fletcher [facility] UNK - Ambulatory Encounter David ColeLogic [facility] UNK - Ambulatory Encounter David Fltecher [facility] UNK - Ambulatory Encounter David Fletcher [facility] UNK - Ambulatory Encounter David Irene [facility] Gout - Ambulatory Encounter David ColeLogjonathon [facility] UNK - Ambulatory Encounter David ColeLogjonathon [facility] UNK - Ambulatory Encounter David Fletcher [facility] UNK - Ambulatory Encounter David Marcano [facility] Acute bronchitis - Ambulatory Encounter David Fletcher Link[facility] UNK - Ambulatory Encounter David Fletcher [facility] UNK - Ambulatory Encounter David Marcano Irene [facility] UNK - Ambulatory Encounter Fax Status LinkLogic [facility] UNK - Ambulatory Encounter Fax Status LinkLogic [facility] UNK - Ambulatory Encounter Fax Status [facility] - Ambulatory Encounter David Fletcher [facility] UNK - Ambulatory Encounter David Marcano [facility] BPHCerumen impaction - Ambulatory Encounter David Fletcher [facility] UNK - Ambulatory Encounter David Irene [facility] UNK - Ambulatory Encounter David Fletcher [facility] UNK - Ambulatory Encounter David Fletcher [facility] UNK - Ambulatory Encounter David Fletcher [facility] Pneumonia - Ambulatory Encounter David Bejarano [facility] UNK - Ambulatory Encounter David Fletcher [facility] UNK - Ambulatory Encounter David Hermanados [facility] URICough - Ambulatory Encounter David ColeLogjonathon [facility] UNK - Ambulatory Encounter Krys Irene [facility] UNK - Ambulatory Encounter David Fletcher [facility] UNK - Ambulatory Encounter David Fletcher [facility] UNK - Ambulatory Encounter [facility] UNK - Ambulatory Encounter Jessa Calhounarra [facility] UNK - Ambulatory Encounter David Fletcher [facility] UNK - Ambulatory Encounter David Fletcher Krys [facility] UNK - Ambulatory [facility] UNK - Ambulatory Encounter David Fletcher [facility] UNK - Ambulatory Encounter Deborah Bhakhrani Deborah Bhakhrani [facility] UNK - Ambulatory Encounter David ColeLogjonathon [facility] UNK - Ambulatory Encounter Criss Esparza [...] Vision UNK - Ambulatory Encounter David Bejarano [facility] UNK - Ambulatory Encounter Deborah Bhakhrani Deborah Bhakhrani Elayne Sarkar [facility] Hyperopia - OUAstigmatism - OUPresbyopia - OU - Ambulatory Encounter Kaitlin Lino [facility] Public Health Services UNK - Ambulatory Encounter David Fletcher [facility] UNK - Ambulatory Encounter David Marcano Irene [facility] Depression - Ambulatory Encounter David Bejarano [facility] UNK - Ambulatory Encounter David Bejarano [facility] UNK - Ambulatory Encounter Krys Irene [facility] UNK - Ambulatory Encounter David Fletcher [facility] UNK - Ambulatory Encounter David Fletcher [facility] UNK - Ambulatory Encounter David Fletcher [facility] UNK - Ambulatory Encounter David Fletcher [facility] UNK - Ambulatory Encounter David Fletcher [facility] UNK - Ambulatory Encounter Krys Irene [facility] UNK - [facility] Diabetes mellitus, type IIVaccination Against Influenza - Ambulatory Encounter Fax Status LinkLogic [facility] UNK - Ambulatory Encounter Fax Status [facility] - Ambulatory Encounter Fax Status LinkLogic [facility] UNK - Ambulatory Encounter Krys Irene [facility] UNK - Ambulatory Encounter David Adkins [facility] Hypogonadism - Ambulatory Encounter David Fletcher [facility] UNK - Ambulatory Encounter David Marcano Irene [facility] UNK - Ambulatory Encounter David Fletcher [facility] UNK - Ambulatory Encounter David Marcano Irene [facility] Libido, decreased - Ambulatory Encounter David Fletcher [facility] UNK - Ambulatory Encounter David Marcano Irene [facility] UNK - Ambulatory Encounter Fax Status LinkLogic [facility] UNK - Ambulatory Encounter Fax Status [facility] UNK - Ambulatory Encounter Fax Status [facility] UNK - Ambulatory Encounter David Fletcher [facility] UNK - Ambulatory Encounter Love Chisholm [facility] UNK - Ambulatory Encounter David Fletcehr [facility] UNK - Ambulatory Encounter David Fletcher DouglasLogjonathon [facility] UNK - Ambulatory Encounter David Fletcher [facility] UNK - Ambulatory Encounter David Fletcher [facility] UNK - Ambulatory Encounter David Alejandre Teto Chisholm [facility] Purpura - Ambulatory Encounter David Fletcher [facility] UNK - Ambulatory Encounter David Marcano Irene [facility] UNK - Ambulatory Encounter David Fletcher LinkLogjonathon [facility] UNK - Ambulatory Encounter Krys Irene [facility] UNK - Ambulatory Encounter David Fletcher [facility] UNK - Ambulatory Encounter David Marcano Irene [facility] SmokerVaccination Against Influenza - Ambulatory Encounter David Fletcher [facility] UNK - Ambulatory Encounter David Irene [facility] Muscle spasm of [...] as % of total hemoglobin 5.6 % [facility] thyroid stimulating hormone, serum 0.188 u[iU]/mL LinkLogic [...] Status Fluzone Quadrivalent IM PF 0.[address] [facility] [id number] San[employer]i Pasteur 0.5 mL [id number] completed HISTORY OF MEDICATION USE Medication Instructions Dates Provider Comments ALLOPURINOL 100 MG ORAL TABLET one tablet once daily Adelita Julio GEMFIBROZIL 600 MG ORAL TABLET one tablet twice daily Adelita Julio DOXAZOSIN MESYLATE 4 MG ORAL TABLET take 1 tablet two times daily Adelita Julio HYDROCORTISONE 2.5 % EXTERNAL CREAM apply to affected area twice a day Adelita Julio PREDNISONE 20 MG ORAL TABLET take 2 tabs By Mouth for first 5 days, finally 1 tab per day last 5 days - Adelita Julio EZIO VERIO STRP CHECK BLOOD SUGAR 1 TO 3 TIMES DAILY David HOLGUIN DELICA LANCETS 33G CHECK BLOOD SUGAR 1 TO 3 TIMES PER DAY David Fletcher IBUPROFEN 800 MG ORAL TABLET 1 by mouth every 8 hours as needed - Adelita Julio COLCHICINE 0.6 MG ORAL CAPSULE take two caps By Mouth x 1, then 1 cap 1 hour later. May repeat 3 days later if needed. - Adelita Julio CHERATUSSIN AC 100-10 MG/5ML ORAL SYRUP 2 teaspoons (10mL) by mouth at bedtime as needed for cough - Adelita Julio METFORMIN HCL 850 MG ORAL TABLET 1 [...] caps By Mouth Every Day - Adelita Kim MELOXICAM 15 MG ORAL TABLET take one tab By Mouth Every Day As Needed for pain - Adelita Kim LEVOTHYROXINE SODIUM 25 MCG ORAL TABLET One tab by mouth daily - Adelita Kim CYCLOBENZAPRINE HCL 10 MG ORAL TABLET 1 By Mouth three times a day as needed for muscle spasm - Adelita Kim SOCIAL HISTORY Date Observation Value Provider drug use, illicit Never Love Chisholm " alcohol use Never Love Chisholm " sexual orientation Heterosexual Love Chisholm " is there any chance that you could be ? No Love Chisholm " assessment of health literacy ([facility] 2014 Standards, 3C10) Adequate Love Chisholm " passive cigarette smoke exposure No Love Chisholm " smoking status former smoker Love Chisholm " Exercise Program Referral T Love Chisholm " Weight Management Counseling Provided T Love Chisholm " Nutrition intervention T Love Chisholm drug use, illicit Never Love Chisholm " alcohol use Never Love Chisholm " sexual orientation Heterosexual Love Chisholm " is there any chance that you could be ? No Love Chisholm " assessment of health literacy ([facility] 2014 Standards, 3C10) Adequate Love Chisholm [...] Cathi Echavarria " assessment of health literacy ([facility] 2014 Standards, 3C10) Adequate Cathi Leny Echavarria " smoking status former smoker Cathi [...] Iris Chance " assessment of health literacy ([facility] 2014 Standards, 3C10) Adequate Iris Chance [...] Deborath Irene " assessment of health literacy ([facility] 2014 Standards, 3C10) Adequate Deborath Irene " passive cigarette smoke exposure No Deborath Irene " [facility], illicit Never Deborath Irene " alcohol use Never Deborath Irene " social history reviewed E&M reviewed today Debora Irene " assessment of health literacy ([facility] 2014 Standards, 3C10) Adequate Deborath Irene " is there any chance that you could be ? No Deborath Irene " sexual orientation Heterosexual Deborath Irene " Exercise Program Referral T Deborath Irene " Weight Management Counseling Provided T Deborath Ireen " Nutrition intervention T Deborath Irene " passive cigarette smoke exposure No Deborath Irene " smoking status former smoker Deborath Irene Exercise Program Referral T Deborath Irene " Weight Management Counseling Provided T Deborath Irene " Nutrition intervention T Debora Irene " drug use, illicit Never Debora Irene " alcohol use Never Debora Irene " social history reviewed E&M reviewed today [place] [facility] " assessment of health literacy ([facility] 2014 Standards, 3C10) Adequate Deborath Irene " is there any chance that you could be ? No Debora Irene " sexual orientation Heterosexual Debora Irene " passive cigarette smoke exposure No Debora Irene " smoking status [facility] Exercise Program Referral T Debora [facility] " Weight Management Counseling Provided T Debora Irene " Nutrition intervention T Debora Irene " drug use, illicit Never Debora Irene " alcohol use Never Debora Irene " social history reviewed E&M reviewed today [facility] " sexual orientation [facility] " is there any chance that you could be ? No Debora Irene " assessment of health literacy ([facility] 2014 Standards, 3C10) Adequate Debora Irene " passive cigarette smoke exposure No Debora Irene " smoking status former [facility] Exercise Program Referral T Debora [facility] " Weight Management Counseling Provided T Deb Irene " Nutrition intervention T Deb Irene " drug use, illicit Never Debora Irene " alcohol use Never Debora Irene " social history reviewed E&M reviewed today [facility] " sexual orientation Heterosexual [facility] " is there any chance that you could be ? No Debora Irene " assessment of health literacy ([facility] 2014 Standards, 3C10) Adequate Debora Irene " passive cigarette smoke exposure No Debora Irene " smoking status [facility] Exercise Program Referral T Caitlin [...] Iris Chance " assessment of health literacy ([facility] 2014 Standards, 3C10) Adequate Iris Chance " passive cigarette smoke exposure No Iris Chance " smoking status current every day smoker Iris Chance Exercise Program Referral T Deborath [facility] " Weight Management Counseling Provided T Debora Irene " Nutrition intervention T Debora Irene " drug use, illicit Never Debora Irene " alcohol use Never Deborath Irene " social history reviewed E&M reviewed today [facility] " assessment of health literacy ([facility] 2014 Standards, 3C10) Adequate [facility] " is there any chance that you could be ? No Debora Irene " sexual orientation Heterosexual [facility] " passive cigarette smoke exposure No Debora Irene " smoking status former smoker [facility] drug use, illicit Never Debora [facility] " alcohol use Never Debora [facility] " social history reviewed E&M reviewed today [facility] " is there any chance that you could be ? No Debora Irene " sexual orientation Heterosexual [facility] " assessment of health literacy ([facility] 2014 Standards, 3C10) Adequate [facility] " passive cigarette smoke exposure No [place] [facility] " smoking status former smoker [facility] " Exercise Program Referral T [place] Irene " Weight Management Counseling Provided T [place] Irene " Nutrition intervention T [facility] time of call 12/10/2017 11:02 AM Kaitlin Lion time of call 11/29/2017 9:56 AM Kaitlin Lion Exercise [facility] " Weight Management Counseling Provided T [facility] " Nutrition intervention T [place] Irene " drug use, illicit Never [facility] " alcohol use Never [place] [facility] " social history reviewed E&M reviewed today [facility] " is there any chance that you could be ? [facility] " sexual orientation Heterosexual [facility] " passive cigarette smoke exposure No [facility] " smoking status former [facility] Exercise Program Referral T Caitlin Fletcher " Weight Management Counseling Provided T Caitlin Fletcher " Nutrition intervention T Caitlin Fletcher " drug use, illicit Never Caitlin Fletcher " alcohol use Never Iris Chance " social history reviewed E&M reviewed today Caitlin Fletcher " sexual orientation Heterosexual Iris Chance " is there any chance that you could be ? No Caitlin Fletcher " assessment of health literacy ([facility] 2014 Standards, 3C10) Adequate Caitlin Fletcher " smoking status former smoker Caitlin Fletcher " passive cigarette smoke exposure No Iris Chance Exercise Program Referral T Deb Irene " Weight Management Counseling Provided T Deb " Nutrition intervention T Deb " drug use, illicit Never Debora Irene " alcohol use Never Debora Irene " smoking status [facility] " is there any chance that you could be ? No Deborath Irene " assessment of health literacy ([facility] 2014 Standards, 3C10) Adequate Debora Irene " sexual orientation Heterosexual [facility] " passive cigarette smoke exposure No [facility] Exercise Program Referral T Deb Irene " Weight Management Counseling Provided T Deb " Nutrition intervention T Deb " drug use, illicit Never [place] Irene " alcohol use Never [place] Irene " social history reviewed E&M reviewed today [facility] " is there any chance that you could be ? No Deb Irene " sexual orientation Heterosexual [facility] " assessment of health literacy ([facility] 2014 Standards, 3C10) Adequate Debora Irene " passive cigarette smoke exposure No Debora Irene " smoking status current every day smoker [facility] sexual orientation Heterosexual Love Chisholm " sex at Male Love Chisholm " drug use, illicit Never Love Chisholm " alcohol use Never Love Chisholm " smoking status current every day smoker Love Chisholm " is there any chance that you could be ? No Love Chisholm " assessment of health literacy ([facility] 2014 Standards, 3C10) Adequate Love Chisholm " passive cigarette smoke exposure No Love Chisholm " Exercise Program Referral T Love Chisholm " Weight Management Counseling Provided T Love Chisholm " Nutrition intervention T Love Chisholm Exercise Program Referral T Debora Irene " Weight Management Counseling Provided T Deb Irene " Nutrition intervention T Deb " drug use, illicit Never Deb Irene " alcohol use Never Debora Irene " social history reviewed E&M reviewed today [facility] " is there any chance that you could be ? No [facility] " passive cigarette smoke exposure No [facility] " smoking status current every day smoker [facility] " assessment of health literacy ([facility] 2014 Standards, 3C10) Adequate [facility] Exercise Program Referral T [place] [facility] " Weight Management Counseling Provided T [place] [facility] " Nutrition intervention T [place] [facility] " drug use, illicit Never [facility] " alcohol use Never [facility] " social history reviewed E&M reviewed today [facility] " is there any chance that you could be ? No [place] Irene " passive cigarette smoke exposure No [facility] " smoking status current every day smoker [facility] " assessment of health literacy ([facility] 2014 Standards, 3C10) Adequate [facility] drug use, illicit Never [facility] " alcohol use Never [facility] " patient considered to be homeless No [facility] " is there any chance that you could be ? No [facility] " passive cigarette smoke exposure No [facility] " smoking status current every day smoker [facility] " assessment of health literacy ([facility] 2014 Standards, 3C10) Adequate [facility] " Exercise Program Referral T [facility] " Weight Management Counseling Provided T [facility] " Nutrition intervention T [facility] FUNCTIONAL STATUS No Information Available MENTAL STATUS Date Observation Value Provider assessment of judgment and insight E&M intact Adelitastacy Kim " mental status examination: orientation E&M oriented to time, place, and person Adelitastacy Kim " assessment of mood and affect E&M no depression, anxiety, or agitation Adelitastacy Kim " Generalized Anxiety Disorder Questionnaire - Question 2 0 Love Chisholm " Generalized Anxiety Disorder Questionnaire - Question 1 0 Love Chisholm Generalized Anxiety Disorder Questionnaire - Question 2 0 Love Chisholm " Generalized Anxiety Disorder Questionnaire - Question 1 0 Love Chisholm assessment of mood and affect E&M no depression, anxiety, or agitation Adelitastacy Kim " Generalized Anxiety Disorder Questionnaire - [...] Anxiety Disorder Questionnaire - Question 1 0 [facility] assessment of judgment and insight E&M intact David D Chance " mental status examination: orientation E&M oriented to time, place, and person David D Chance " assessment of mood and affect E&M no depression, anxiety, or agitation David D Chance " Generalized Anxiety Disorder Questionnaire - Question 2 0 Krys Irene " Generalized Anxiety Disorder Questionnaire - Question 1 [facility] and insight E&M [...] Anxiety Disorder Questionnaire - Question 1 0 [facility] assessment of judgment and insight E&M intact David D Chance " mental status examination: orientation E&M oriented to time, place, and person David D Chance " assessment of mood and affect E&M no depression, anxiety, or agitation David D Chance " Generalized Anxiety Disorder Questionnaire - Question 2 0 Krys Irene " Generalized Anxiety Disorder Questionnaire - [facility] 1 [facility] and insight E&M [...] depression, anxiety, or agitation David Rosi Fletcher assessment of judgment and insight E&M intact David D Chance " mental status examination: orientation E&M oriented to time, place, and person David D Chance " assessment of mood and affect E&M no depression, anxiety, or agitation David Fletcher " Generalized Anxiety Disorder Questionnaire - Question 2 0 Krys Irene " Generalized Anxiety Disorder Questionnaire - Question 1 0 [facility] of judgment and insight E&M [...] Anxiety Disorder Questionnaire - Question 1 0 [facility] of judgment and insight E&M intact David D Chance " mental status examination: orientation E&M oriented to time, place, and person David D Chance " assessment of mood and affect E&M no depression, anxiety, or agitation David Fletcher " Generalized Anxiety Disorder Questionnaire - Question 2 0 Krys Irene " Generalized Anxiety Disorder Questionnaire - Question 1 0 [facility] assessment of judgment and insight [...] Anxiety Disorder Questionnaire - Question 2 0 [facility] [place] " Generalized Anxiety Disorder Questionnaire - Question 1 0 [facility] assessment of judgment and insight E&M intact David Fletcher " mental status examination: orientation E&M oriented to time, place, and person David Fletcher " assessment of mood and affect E&M no depression, anxiety, or agitation David Fletcher " Generalized Anxiety Disorder Questionnaire - Question 2 0 [facility] Irene " Generalized Anxiety Disorder Questionnaire - Question 1 0 [facility] assessment of judgment and insight E&M intact David Fletcher " mental status examination: orientation E&M oriented to time, place, and person David Fletcher " assessment of mood and affect E&M no depression, anxiety, or agitation David Fletcher " Generalized Anxiety Disorder Questionnaire - Question 2 0 [facility] Irene " Generalized Anxiety Disorder Questionnaire - Question 1 0 [facility] MEDICAL EQUIPMENT No Information Available FAMILY HISTORY No Information Available INSURANCE PROVIDERS No Information Available ADVANCE DIRECTIVES No Information Available TREATMENT PLAN Date Name Microalb/Creat Ratio, Randm Ur Hemoglobin A1c Lipid Panel Comp. Metabolic Panel (14) TSH+T4+T3H Uric Acid, Serum TSH Testosterone,Free and Total CBC With Differential/Platelet CBC With Differential/Platelet TSH - - - - - Ofc Vst, Est Level III Ofc Vst, Est Level III First Vx - Ix admin for Medicare patients Fluzone Quadrivalent IM Prefilled Syringe 0.5 mL (PF) Ofc Vst, Est Level IV Vaccines Ordered - Print Consent/Declination Forms Est Patient Exp Problem - 05567 Est Patient Exp Problem - 90767 Est Patient Exp Problem - 19546 Est Patient Exp Problem - 88483 Ear Irrigation Est Patient Exp Problem - 56865 Est Patient Exp Problem - 17362 Est Patient Exp Problem - 28797 Est Patient Exp Problem - 67343 Est Patient Exp Problem - 49392 New Patient Intermediate Opth - 82266 Spherocyl, bif, plano to +/- 4.00d sphere, 0.12 to 2.00d cyl, per lens Frames, purchases Est Patient Exp Problem - 36450 Diabetes Education Vision Est Patient Exp Problem - 95884 HEMOGLOBIN A1C - In House INFLUENZA VACCINE QUADRIVALENT 3 YRS PLUS IM Admin of Vaccine - Injection - 1 Est Patient Exp Problem - 40762 Est Patient Exp Problem - 03653 Est Patient Detailed - 44162 Est Patient Exp Problem - 60316 INFLUENZA VACCINE QUADRIVALENT 3 YRS PLUS IM Admin of Vaccine - Injection - 1 Est Patient Detailed - 39201 New Patient Comprehensive - 26883 HISTORY OF PROCEDURES Procedure Date Procedure Name Provider Procedure Notes Status First Vx - Ix admin for Medicare patients Adelita Kim completed Fluzone Quadrivalent IM Prefilled Syringe 0.5 mL (PF) Adelita Kim completed Vaccines Ordered - Print Consent/Declination Forms Adelita Kim completed Ear Irrigation David Fletcher pt tolerated procedure well; hearing improved afterwards completed New Patient Intermediate Opth - 49098 Deborah Suarezalexamadou completed Spherocyl, bif, plano to +/- 4.00d sphere, 0.12 to 2.00d cyl, per lens Criss Esparza completed Frames, purchases Criss Esparza Frame #[id number] (FFS) Pd 65.00 completed HEMOGLOBIN A1C - In House David Fletcher completed GOALS No Information Available HEALTH CONCERNS No Information Available
--- OUTSIDE RECORDS SUMMARY | 2019-03-15 06:36 | XMS REPORT ---
Author Author Admin, [place] Organization Unknown Address Unknown Phone Unavailable PROBLEMS [...] Location Encounter Diagnosis - Ambulatory Encounter Adelita Julio Adelita Julio [facility] UNK - Ambulatory Encounter Fax Status [facility] UNK - Ambulatory Encounter Fax Status [facility] UNK - Ambulatory Encounter Fax Status [facility]Log[facility] UNK - Ambulatory Encounter Adelita Julio Adelita Julio [facility] UNK - Ambulatory Encounter Adelita Julio Adelita Julio Love Chisholm [facility] Hypertriglyceridemia - Ambulatory Encounter Adelita Julio Adelita Julio [facility] UNK - Ambulatory Encounter Adelita Julio Adelita Julio Cordovayre [facility] Chronic kidney disease, unspecified - Ambulatory Encounter Adelita Julio [facility] - Ambulatory Encounter Fax Status LinkLogic [facility] UNK - Ambulatory Encounter Fax Status [facility] UNK - Ambulatory Encounter Fax Status [facility] UNK - Ambulatory Encounter Adelita Julio Adelita Julio Munoz [facility] UNK - Ambulatory Encounter Adelita Julio Adelita Julio Love Chisholm [facility] UNK - Ambulatory Encounter Adelita Julio Adelita Julio LinkLogic [facility] UNK - Ambulatory Encounter Adelita Julio Adelita Julio LinkLogic [facility] UNK - Ambulatory Encounter Love Chisholm [facility] UNK - Ambulatory Encounter Adelita Kim [facility] UNK - Ambulatory Encounter Adelita Kim Love Echavarria [facility] Acute bronchitisElevated creatinineLow TSH - Ambulatory Encounter David Acuñaatius [facility] UNK - Ambulatory Encounter David Fletcher [facility] UNK - Ambulatory Encounter David Fletcher [facility] Skin rash - Ambulatory Encounter [facility] - Ambulatory Encounter David Fletcher LinkLogic [facility] UNK - Ambulatory Encounter David Fletcher [facility] UNK - Ambulatory Encounter David Fletcher [facility] UNK - Ambulatory Encounter David Marcano [facility] Gout - Ambulatory Encounter David ColeLogjonathon [facility] UNK - Ambulatory Encounter David ColeLogjonathon [facility] UNK - Ambulatory Encounter David Fletcher [facility] UNK - Ambulatory Encounter David Marcano [facility] Acute bronchitis - Ambulatory Encounter David Fletcher LinkLogjonathon [facility] UNK - Ambulatory Encounter David Fletcher [facility] UNK - Ambulatory Encounter David Marcano Irene [facility] UNK - Ambulatory Encounter Fax Status [facility] UNK - Ambulatory Encounter Fax Status [facility] UNK - Ambulatory Encounter Fax Status [facility] UNK - Ambulatory Encounter David Fletcher [facility] UNK - Ambulatory Encounter David Alejandre Irene [facility] BPHCerumen impaction - Ambulatory Encounter David Fletcher [facility] UNK - Ambulatory Encounter David Marcano Irene [facility] UNK - Ambulatory Encounter David Fletcher [facility] UNK - Ambulatory Encounter David Fletcher [facility] UNK - Ambulatory Encounter David Fletcher [facility] Pneumonia - Ambulatory Encounter David ColeLogjonathon [facility] UNK - Ambulatory Encounter David Fletcher [facility] UNK - Ambulatory Encounter David Marcano Irene [facility] URICough - Ambulatory Encounter David Fletcher [facility] UNK - Ambulatory Encounter Krys Irene [facility] UNK - Ambulatory Encounter David Fletcher [facility] UNK - Ambulatory Encounter David Fletcher [facility] UNK - Ambulatory Encounter [facility] UNK - Ambulatory Encounter Jessa Calhounarra [facility] UNK - Ambulatory Encounter David Fletcher [facility] UNK - Ambulatory Encounter David Fletcher [facility] UNK - Ambulatory Encounter Kaitlin UshaGarcia [facility] UNK - Ambulatory Encounter David Fletcher [facility] UNK - Ambulatory Encounter Deborah Bhakhrani Deborah Bhakhrani [facility] UNK - Ambulatory En[facility] UNK - Ambulatory Encounter Criss [...] Combsakhrani [facility] UNK - Ambulatory Encounter David Bejarano [facility] UNK - Ambulatory Encounter Deborah Marquez Elayne Sarkar [facility] Hyperopia - OUAstigmatism - OUPresbyopia - OU - Ambulatory Encounter Kaitlin Lion [facility] Services UNK - Ambulatory Encounter David Fletcher [facility] UNK - Ambulatory Encounter David Ageepinecliffeharitha Irene [facility] Depression - Ambulatory Encounter David Bejarano [facility] UNK - Ambulatory Encounter David Bejarano [facility] UNK - Ambulatory Encounter Krys Irene [facility] UNK - Ambulatory Encounter David Fletcher [facility] UNK - Ambulatory Encounter David Fletcher [facility] UNK - Ambulatory Encounter David Fletcher [facility] UNK - Ambulatory Encounter David Fletcher [facility] UNK - Ambulatory Encounter David Fletcher [facility] UNK - Ambulatory Encounter Debnaveed Irene [facility] UNK - Ambulatory Encounter David Fletcher [facility] Diabetes mellitus, type IIVaccination Against Influenza - Ambulatory Encounter Fax Status [facility] - Ambulatory Encounter Fax Status [facility] UNK - Ambulatory Encounter Fax Status [facility] - Ambulatory Encounter Krys [facility] UNK - Ambulatory Encounter David Adkins [facility] Hypogonadism - Ambulatory Encounter David Fletcher [facility] UNK - Ambulatory Encounter David Fletcher LinkLogjonathon [facility] UNK - Ambulatory Encounter David Fletcher [facility] UNK - Ambulatory Encounter David Marcano [facility] Libido, decreased - Ambulatory Encounter David Fletcher [facility] UNK - Ambulatory Encounter David Ageeoraharitha [facility] UNK - Ambulatory Encounter Fax Status [facility] UNK - Ambulatory Encounter Fax Status [facility] UNK - Ambulatory Encounter Fax Status [facility] UNK - Ambulatory Encounter David Fletcher [facility] UNK - Ambulatory Encounter Love Chisholm [facility] UNK - Ambulatory Encounter David Fletcher [facility] UNK - Ambulatory Encounter David ColeLogjonathon [facility] UNK - Ambulatory Encounter David Fletcher [facility] UNK - Ambulatory Encounter David Fletcher [facility] UNK - Ambulatory Encounter David Alejandre [facility] Purpura - Ambulatory Encounter David Fletcher [facility] UNK - Ambulatory Encounter David Marcano Irene [facility] UNK - Ambulatory Encounter David ColeAvelinojonathon [facility] UNK - Ambulatory Encounter Krys Irene [facility] UNK - Ambulatory Encounter David Fletcher [facility] UNK - Ambulatory Encounter David Marcano Irene [facility] SmokerVaccination Against Influenza - Ambulatory Encounter David Fletcher [facility] UNK - Ambulatory Encounter David Marcano Irene [facility] Muscle spasm of backBPHHypothyroidismHypertension VITAL [...] as % of total hemoglobin 5.6 % [facility] thyroid stimulating hormone, serum 0.188 u[iU]/mL [...] PF 0.5 ML [facility] [id number] [employer]i Pasteur 0.5 mL [id number] completed HISTORY OF MEDICATION USE Medication Instructions [...] Observation Value Provider drug use, illicit Never Loveluis angel Chisholm " alcohol use Never Love Chisholm " sexual orientation Heterosexual Love Chisholm " is there any chance that you could be ? No Love Chisholm " assessment of health literacy ([facility] 2014 Standards, 3C10) Adequate Love Chisholm [...] Cathi Echavarria " assessment of health literacy ([facility] 2014 Standards, 3C10) Adequate Cathi Echavarria " smoking status former smoker Cathi Echavarria Exercise Program Referral T Caitlin Fletcher " Weight Management Counseling Provided T Caitlin Fletcher " Nutrition intervention T Caitlin Fletcher " drug use, illicit Never Caitlin Fletcher " alcohol use Never Caitlin Fletcher " social history reviewed E&M reviewed today Caitlin Fletcher " sexual orientation Heterosexual Caitlin Fletcher " is there any chance that you could be ? No Iris Chance " assessment of health literacy ([facility] 2014 Standards, 3C10) Adequate Caitlin Fletcher " passive cigarette smoke exposure No Iris Chance " smoking status former smoker Iris Chance Exercise Program Referral T Krys Hermanados " Weight Management Counseling Provided T Irene " Nutrition intervention T Irene " drug use, illicit Never Debora Irene " alcohol use Never Debora [facility] " social history reviewed E&M reviewed today [facility] " sexual orientation Heterosexual Debora [facility] " is there any chance that you could be ? No Deb Irene " assessment of health literacy ([facility] 2014 Standards, 3C10) Adequate Debora Irene " passive cigarette smoke exposure No Debora Irene " smoking status former smoker [facility] drug use, illicit Never Debora [facility] " alcohol use Never Debora [facility] " social history reviewed E&M reviewed today [facility] " assessment of health literacy ([facility] 2014 Standards, 3C10) Adequate [facility] " is there any chance that you could be ? No [facility] " sexual orientation Heterosexual Deb [facility] " Exercise Program Referral T [facility] " Weight Management Counseling Provided T Irene " Nutrition intervention T Irene " passive cigarette smoke exposure No Debora [facility] " smoking status former smoker [facility] Exercise Program Referral T Irene " Weight Management Counseling Provided T Irene " Nutrition intervention T Irene " drug use, illicit Never ora [facility] " alcohol use Never pinecliffe [facility] " social history reviewed E&M reviewed today [facility] " assessment of health literacy ([facility] 2014 Standards, 3C10) Adequate [facility] " is there any chance that you could be ? No Irene " sexual orientation Heterosexual Debora [facility] " passive cigarette smoke exposure No Debora [facility] " smoking status former smoker [facility] Exercise Program Referral T Deb Irene " Weight Management Counseling Provided T Irene " Nutrition intervention T Deb Irene " drug use, illicit Never Debora Irene " alcohol use Never Debora [facility] " social history reviewed E&M reviewed today [facility] " sexual orientation Heterosexual [facility] " is there any chance that you could be ? No Deb [facility] " assessment of health literacy ([facility] 2014 Standards, 3C10) Adequate Debora Irene " passive cigarette smoke exposure No Debora Irene " [facility] Referral T Debora Irene " Weight Management Counseling Provided T Deb " Nutrition intervention T Deb " drug use, illicit Never Debora Irene " alcohol use Never Debora Irene " social history reviewed E&M reviewed today Deb Irene " sexual orientation Heterosexual Debora Irene " is there any chance that you could be ? No Debora Irene " assessment of health literacy ([facility] 2014 Standards, 3C10) Adequate Debora Irene " passive cigarette smoke exposure No Debora Irene " smoking status [facility] Referral T Caitlin Fletcher " [...] Iris Chance " assessment of health literacy ([facility] 2014 Standards, 3C10) Adequate Iris Chance " passive cigarette smoke exposure No Iris Chance " smoking status current every day smoker Iris Chance Exercise Program Referral T Irene " Weight Management Counseling Provided T " Nutrition intervention T " drug use, illicit Never Debora Irene " alcohol use Never Deb Irene " social history reviewed E&M reviewed today Debpinecliffe [facility] " assessment of health literacy ([facility] 2014 Standards, 3C10) Adequate Debora Irene " is there any chance that you could be ? No Debora Irene " sexual orientation Heterosexual Debora Irene " passive cigarette smoke exposure No Debora Irene " smoking status [facility] drug use, illicit Never Debora Irene " alcohol use Never Debora Irene " social history reviewed E&M reviewed [facility] " is there any chance that you could be ? No Debora Irene " sexual orientation Heterosexual Deborath Irene " assessment of health literacy ([facility] 2014 Standards, 3C10) Adequate Deborath Irene " passive cigarette smoke exposure No Debora Irene " smoking status former smoker Deborath Irene " Exercise Program Referral T Deborath Irene " Weight Management Counseling Provided T Deborath Irene " Nutrition intervention T Deborath Irene time of call 12/10/2017 11:02 AM [email or web address]Garcia time of call 11/29/2017 9:56 AM [email or web address]Garcia Exercise Program Referral T Deborath Irene " Weight Management Counseling Provided T Debora Irene " Nutrition intervention T Debora Irene " drug use, illicit Never Deborath Irene " alcohol use Never Deborath Irene " social history reviewed E&M reviewed [facility] " is there any chance that you could be ? No Deborath Irene " sexual orientation Heterosexual Deborath Irene " passive cigarette smoke exposure No Debora Irene " smoking status [facility] Referral T Iris Chance " [...] Iris Chance " assessment of health literacy ([facility] 2014 Standards, 3C10) Adequate Iris Chance " smoking status former smoker Iris Chance " passive cigarette smoke exposure No Iris Chance Exercise Program Referral T Debora Irene " Weight Management Counseling Provided T Debora Irene " Nutrition intervention T Debora Irene " drug use, illicit Never Deborath Irene " alcohol use Never Deborath Irene " [facility] status [facility] " is there any chance that you could be ? No Deborath Irene " assessment of health literacy ([facility] 2014 Standards, 3C10) Adequate Deborath Irene " sexual orientation Heterosexual Deborath Irene " passive cigarette smoke exposure No Deborath Irene Exercise Program Referral T Deborath Irene " Weight Management Counseling Provided T Debora Irene " Nutrition intervention T Debora Irene " drug use, illicit Never Deborath Irene " alcohol use Never Debpinecliffe [facility] " social history reviewed E&M reviewed today [facility] " is there any chance that you could be ? No Debora Irene " sexual orientation Heterosexual [facility] " assessment of health literacy ([facility] 2014 Standards, 3C10) Adequate Debora [facility] " passive cigarette smoke exposure No Debpinecliffe [facility] " smoking status current every day smoker [facility] sexual orientation Heterosexual Love Chisholm " sex at Male Love Chisholm " drug use, illicit Never Love Chisholm " alcohol use Never Love Chisholm " smoking status current every day smoker Love Chisholm " is there any chance that you could be ? No Love Chisholm " assessment of health literacy ([facility] 2014 Standards, 3C10) Adequate Love Chisholm " passive cigarette smoke exposure No Lvoe Chisholm " Exercise Program Referral T Love Chisholm " Weight Management Counseling Provided T Love Chisholm " Nutrition intervention T Love Chisholm [facility] Ref[facility] " Weight Management Counseling Provided T pinecliffe [facility] " Nutrition intervention T pinecliffe [facility] " drug use, illicit Never Debpinecliffe [facility] " alcohol use Never pinecliffe [facility] " social history reviewed E&M reviewed today [facility] " is there any chance that you could be ? No Deb [facility] " passive cigarette smoke exposure No pinecliffe [facility] " smoking status current every day smoker [facility] " assessment of health literacy ([facility] 2014 Standards, 3C10) Adequate [facility] Exercise Program Referral T Debpinecliffe [facility] " Weight Management Counseling Provided T pinecliffe [facility] " Nutrition intervention T Debpinecliffe [facility] " drug use, illicit Never Debpinecliffe [facility] " alcohol use Never Debpinecliffe [facility] " social history reviewed E&M reviewed today [facility] " is there any chance that you could be ? No Debpinecliffe Irene " passive cigarette smoke exposure No [facility] " smoking status current every day smoker [facility] " assessment of health literacy ([facility] 2014 Standards, 3C10) Adequate [facility] drug use, illicit Never Deborath Irene " alcohol use Never [facility] " patient considered to be homeless No Krys Irene " is there any chance that you could be ? No Krys Irene " passive cigarette smoke exposure No Krys Irene " smoking status current every day smoker [facility] " assessment of health literacy ([facility] 2014 Standards, 3C10) Adequate Cyndiepinecliffeharitha Irene " Exercise Program Referral T Cyndiepinecliffeharitha Irene " Weight Management Counseling Provided T Krys Irene " Nutrition intervention T [facility] FUNCTIONAL STATUS No Information Available MENTAL [...] Anxiety Disorder Questionnaire - Question 1 0 [facility] assessment of judgment and insight [...] E&M oriented to time, place, and person Daivd Fletcher " assessment of mood and affect E&M no depression, anxiety, or agitation David Fletcher assessment of judgment and insight E&M intact David D Chance " mental status examination: orientation E&M oriented to time, place, and person David Fletcher " assessment of mood and affect E&M no depression, anxiety, or agitation David Fletcher " Generalized Anxiety Disorder Questionnaire - Question 2 0 [facility] " Generalized Anxiety Disorder Questionnaire - Question 1 0 [facility] assessment of judgment and insight E&M intact David D Chance " mental status examination: orientation E&M oriented to time, place, and person David D Chance " assessment of mood and affect E&M no depression, anxiety, or agitation David D Chance " Generalized Anxiety Disorder Questionnaire - Question 2 0 [facility] " Generalized Anxiety Disorder Questionnaire - Question 1 0 [facility] assessment of judgment and insight E&M [...] Anxiety Disorder Questionnaire - Question 2 0 [facility] " Generalized Anxiety Disorder Questionnaire - Question 1 0 [facility] assessment of judgment and insight E&M intact David D Chance " mental status examination: orientation E&M oriented to time, place, and person David D Chance " assessment of mood and affect E&M no depression, anxiety, or agitation David D Chance " Generalized Anxiety Disorder Questionnaire - Question 2 0 [facility] Generalized Anxiety Disorder Questionnaire - Question 1 0 [facility] assessment of judgment and insight E&M intact David D Chance " mental status examination: orientation E&M oriented to time, place, and person David D Chance " assessment of mood and affect E&M no depression, anxiety, or agitation David D Chance " Generalized Anxiety Disorder Questionnaire - Question 2 0 [facility] " Generalized Anxiety Disorder Questionnaire - Question 1 0 [facility] MEDICAL EQUIPMENT No Information Available FAMILY [...] Consent/Declination Forms Est Patient Exp Problem - 81523 Est Patient Exp Problem - 36403 Est Patient Exp Problem - 58941 Est Patient Exp Problem - 64695 Ear Irrigation Est Patient Exp Problem - 93817 Est Patient Exp Problem - 17555 Est Patient Exp Problem - 50129 Est Patient Exp Problem - 42662 Est Patient Exp Problem - 80463 New Patient Intermediate Opth - 45717 Spherocyl, bif, plano to +/- 4.00d sphere, 0.12 to 2[address], per lens Frames, purchases Est Patient Exp Problem - 47011 Diabetes Education Vision Est Patient Exp Problem - 78145 HEMOGLOBIN A1C - In House INFLUENZA VACCINE QUADRIVALENT 3 YRS PLUS IM Admin of Vaccine - Injection - 1 Est Patient Exp Problem - 19253 Est Patient Exp Problem - 01384 Est Patient Detailed - 51273 Est Patient Exp Problem - 51031 INFLUENZA VACCINE QUADRIVALENT 3 YRS PLUS IM Admin of Vaccine - Injection - 1 Est Patient Detailed - 38715 New Patient Comprehensive - 79154 HISTORY OF PROCEDURES Procedure Date Procedure Name Provider Procedure Notes Status First Vx - Ix admin for Medicare patients Adelita Kim completed Fluzone Quadrivalent IM Prefilled Syringe 0.5 mL (PF) Adelita Kim completed Vaccines Ordered - Print Consent/Declination Forms Adelita Kim completed Ear Irrigation David Fletcher pt tolerated procedure well; hearing improved afterwards completed New Patient Intermediate Opth - 99768 Deborah Marquez completed Spherocyl, bif, plano to +/- 4.00d sphere, 0.12 to 2.00d cyl, per lens Criss Esparza completed Frames, purchases Criss [employer] Frame #1006 (FFS) Pd 65.00 completed HEMOGLOBIN A1C - In House David Fletcher completed GOALS No Information Available HEALTH CONCERNS No Information Available
--- OUTSIDE RECORDS SUMMARY | 2019-03-15 06:37 | XMS REPORT ---
Author Author Admin, [place] Organization Unknown Address Unknown Phone Unavailable PROBLEMS [...] Encounter Diagnosis - Ambulatory Encounter Adelita Kim [facility] UNK - Ambulatory Encounter Adelita Julio Chisholm [facility] UNK - Ambulatory Encounter Adelita Juliochester Kim [facility] UNK - Ambulatory Encounter Fax Status [facility] UNK - Ambulatory Encounter Fax Status [facility] UNK - Ambulatory Encounter [facility] - Ambulatory Encounter Adelita Julio Adelitastacy Kim [facility] UNK - Ambulatory Encounter Adelita Julio Adelitastacy Chisholm [facility] Hypertriglyceridemia - Ambulatory Encounter Adelita Julio Adelita Julio [facility] UNK - Ambulatory Encounter Adelita Julio Adelitastacy Cordovayre [facility] Chronic kidney disease, unspecified - Ambulatory Encounter Adelita Julio Adelitastacy [facility] - Ambulatory Encounter Fax Status [facility] UNK - Ambulatory Encounter Fax Status [facility] UNK - Ambulatory Encounter Fax Status [facility] UNK - Ambulatory Encounter Adelita Julio Adelitastacy Munoz [facility] UNK - Ambulatory Encounter Adelita Julio Adelitastacy Chisholm [facility] UNK - Ambulatory Encounter Adelita Julio Adelitastacy Kim [employer] UNK - Ambulatory Encounter Adelita Kim [facility] UNK - Ambulatory Encounter Love Chisholm [facility] UNK - Ambulatory Encounter Adelita Kim Adelitastacy Kim [facility] UNK - Ambulatory Encounter Adelita Chisholm Cathi Echavarria [facility] Acute bronchitisElevated creatinineLow TSH - Ambulatory Encounter David Gunderson [facility] UNK - Ambulatory Encounter David Fletcher [facility] UNK - Ambulatory Encounter David Fletcher [facility] Skin rash - Ambulatory Encounter David Fletcher [facility] UNK - Ambulatory Encounter David Fletcher [facility] UNK - Ambulatory Encounter David ColeLogic [facility] UNK - Ambulatory Encounter David Fletcher [facility] UNK - Ambulatory Encounter David Fletcher [facility] UNK - Ambulatory Encounter David Irene [facility] Gout - Ambulatory Encounter David ColeLogjonathon [facility] UNK - Ambulatory Encounter David ColeLogjonathon [facility] UNK - Ambulatory Encounter David Fletcher [facility] UNK - Ambulatory Encounter David Marcano Irene [facility] Acute bronchitis - Ambulatory Encounter David Fletcher [facility] UNK - Ambulatory Encounter David Fletcher [facility] UNK - Ambulatory Encounter David Marcano Irene [facility] UNK - Ambulatory Encounter Fax Status [facility] UNK - Ambulatory Encounter Fax Status [facility]Logic [facility] UNK - Ambulatory Encounter Fax Status [facility] - Ambulatory Encounter David Fletcher [facility] UNK - Ambulatory Encounter David Marcano [facility] BPHCerumen impaction - Ambulatory Encounter David Fletcher [facility] UNK - Ambulatory Encounter David Irene [facility] UNK - Ambulatory Encounter David Fletcher [facility] UNK - Ambulatory Encounter David Fletcher [facility] UNK - Ambulatory Encounter David Fletcher [facility] Pneumonia - Ambulatory Encounter David Bejarano [facility] UNK - Ambulatory Encounter David Fletcher [facility] UNK - Ambulatory Encounter David Hermanados [facility] URICough - Ambulatory Encounter David ColeLogjonathon [facility] UNK - Ambulatory Encounter Krys Irene [facility] UNK - Ambulatory Encounter David Fletcher [facility] UNK - Ambulatory Encounter David Fletcher [facility] UNK - Ambulatory Encounter [facility] UNK - Ambulatory Encounter Jessa Calhounarra [facility] UNK - Ambulatory Encounter David Fletcher [facility] UNK - Ambulatory Encounter David Fletcher [facility] UNK - Ambulatory En[facility] UNK - Ambulatory Encounter David Fletcher [facility] UNK - Ambulatory Encounter Deborah Bhakhrani Deborah Bhakhrani [facility] UNK - Ambulatory Encounter David ColeLogjonathon [facility] UNK - Ambulatory Encounter Criss [...] Vision UNK - Ambulatory Encounter David Bejarano [facility] UNK - Ambulatory Encounter Deborah Bhakhrani Deborah Bhakhrani Elayne Sarkar [facility] Hyperopia - OUAstigmatism - OUPresbyopia - OU - Ambulatory Encounter Kaitlin Lion [facility] Public Health Services UNK - Ambulatory Encounter David Fletcher [facility] UNK - Ambulatory Encounter David Marcano Irene [facility] Depression - Ambulatory Encounter David Bejarano [facility] UNK - Ambulatory Encounter David Bejarano [facility] UNK - Ambulatory Encounter Krys Irene [facility] UNK - Ambulatory Encounter David Fletcher [facility] UNK - Ambulatory Encounter David Fletcher [facility] UNK - Ambulatory Encounter David Fletcher [facility] UNK - Ambulatory Encounter David Fletcher [facility] UNK - Ambulatory Encounter David Fletcher [facility] UNK - Ambulatory Encounter Krys Irene [facility] UNK - [facility] Diabetes mellitus, type IIVaccination Against Influenza - Ambulatory Encounter Fax Status [facility] UNK - Ambulatory Encounter Fax Status [facility] UN[facility] - Ambulatory Encounter Fax Status [facility] UNK - Ambulatory Encounter Krys Irene [facility] UNK - Ambulatory Encounter David Adkins [facility] Hypogonadism - Ambulatory Encounter David Fletcher [facility] UNK - Ambulatory Encounter David Marcano [facility] UNK - Ambulatory Encounter David Fletcher [facility] UNK - Ambulatory Encounter David Marcano Irene [facility] Libido, decreased - Ambulatory Encounter David Fletcher [facility] UNK - Ambulatory Encounter David Marcano Irene [facility] UNK - Ambulatory Encounter Fax Status [facility] UNK - Ambulatory Encounter Fax Status [facility] UNK - Ambulatory Encounter Fax Status [facility] UNK - Ambulatory Encounter David Fletcher [facility] UNK - Ambulatory Encounter Love Chisholm [facility] UNK - Ambulatory Encounter David Fletcher [facility] UNK - Ambulatory Encounter David Fletcher DouglasLogjonathon [facility] UNK - Ambulatory Encounter David Fletcher [facility] UNK - Ambulatory Encounter David Fletcher [facility] UNK - Ambulatory Encounter David Alejandre Teto Chish[place] Purpura - Ambulatory Encounter David Fletcher [facility] UNK - Ambulatory Encounter David Marcano Irene [facility] UNK - Ambulatory Encounter David Fletcher LinkLog[facility]athon [facility] UNK - Ambulatory Encounter Krys Irene [facility] UNK - Ambulatory Encounter David Fletcher [facility] UNK - Ambulatory Encounter David Marcano Irene [facility] SmokerVaccination Against Influenza - Ambulatory Encounter David Fletcher [facility] UNK - Ambulatory Encounter David Irene [facility] Muscle spasm of backBPHHypothyroidismHypertension VITAL [...] as % of total hemoglobin 5.6 % [facility] thyroid stimulating hormone, serum 0.188 [...] Status Fluzone Quadrivalent IM PF 0.5 ML [facility] [id number] Sanofi Pasteur 0.5 mL [id number] completed HISTORY OF MEDICATION USE Medication Instructions [...] Love Chisholm " assessment of health literacy ([facility] 2014 Standards, 3C10) Adequate Love Chisholm [...] Love Chisholm " assessment of health literacy ([facility] 2014 Standards, 3C10) Adequate Love Chisholm [...] Cathi Echavarria " assessment of health literacy ([facility] 2014 Standards, 3C10) Adequate Cathi Leny [...] Iris Chance " assessment of health literacy ([facility] 2014 Standards, 3C10) Adequate Iris Chance [...] Deborath Irene " assessment of health literacy ([facility] 2014 Standards, 3C10) Adequate Deborath Irene " passive cigarette smoke exposure No Deborath Irene " smoking status [facility] use, illicit Never Deborath Irene " alcohol use Never Deborath Irene " social history reviewed E&M reviewed today Debora Irene " assessment of health literacy ([facility] 2014 Standards, 3C10) Adequate Deborath Irene [...] Deborath Irene Exercise Program Referral T Deborath Ierne " Weight Management Counseling Provided T Deborath Irene " Nutrition intervention T Debora Irene " drug use, illicit Never Debora Irene " alcohol use Never Debora Irene " social history reviewed E&M reviewed today Debghent [facility] " assessment of health literacy ([facility] 2014 Standards, 3C10) Adequate Deborath Irene " is there any chance that you could be ? No Debora Irene " sexual orientation Heterosexual Debora Irene " passive cigarette smoke exposure No Debora Irene " smoking status [facility] Exercise Program Referral T Debora [facility] " Weight Management Counseling Provided T Debora Irene " Nutrition intervention T Debora Irene " drug use, illicit Never Debora Irene " alcohol use Never Debora Irene " social history reviewed E&M reviewed today [facility] " [facility] " is there any chance that you could be ? No Debora Irene " assessment of health literacy ([facility] 2014 Standards, 3C10) Adequate Debora Irene " passive cigarette smoke exposure No Debora Irene " smoking status former [facility] Exercise Program Referral T Debora [facility] " Weight Management Counseling Provided T Deb Irene " Nutrition intervention T Deb Irene " drug use, illicit Never Debora Irene " alcohol use Never Debora Irene " social history reviewed E&M reviewed today [facility] " sexual orientation Heterosexual [facility] " is there any chance that you could be ? No Debora Irene " assessment of health literacy ([facility] 2014 Standards, 3C10) Adequate Debora Irene " passive cigarette smoke exposure No Debora Irene " smoking status former [facility]oker [facility] Exercise Program Referral T Caitlin Fletcher [...] Iris Chance " assessment of health literacy ([facility] 2014 Standards, 3C10) Adequate Iris Chance " passive cigarette smoke exposure No Iris Chance " smoking status current every day smoker Iris Chance Exercise Program Referral T Deborath [facility] " Weight Management Counseling Provided T Debora Irene " Nutrition intervention T Debora Irene " drug use, illicit Never Debora Irene " alcohol use Never Deborath Irene " social history reviewed E&M reviewed today [facility] " assessment of health literacy ([facility] 2014 Standards, 3C10) Adequate [facility] " is there any chance that you could be ? No Debora Irene " sexual orientation Heterosexual [facility] " passive cigarette smoke exposure No Debora Irene " smoking status former smoker [facility] drug use, illicit Never Debora [facility] " alcohol use Never Debora [facility] " social history reviewed E&M reviewed today [facility] " is there any chance that you could be ? No Debora Irene " sexual orientation Heterosexual [facility] " assessment of health literacy ([facility] 2014 Standards, 3C10) Adequate [facility] " passive cigarette smoke exposure No Debghent [facility] " smoking status former smoker [facility] " Exercise Program Referral T Debghent Irene " Weight Management Counseling Provided T ghent Irene " Nutrition intervention T [facility] time of call 12/10/2017 11:02 AM Kaitlin Lion time of call 11/29/2017 9:56 AM Kaitlin Lion Exercise Program [facility] " Weight Management Counseling Provided T [facility] " Nutrition intervention T Debghent Irene " drug use, illicit Never [facility] " alcohol use Never Debghent [facility] " social history reviewed E&M reviewed today [facility] " is there any chance that you could be ? [facility] " sexual orientation Heterosexual [facility] " passive cigarette smoke exposure No [facility] " smoking status former smoker [facility] Exercise Program Referral T Caitlin Fletcher [...] Caitlin Fletcher " assessment of health literacy ([facility] 2014 Standards, 3C10) Adequate Caitlin Fletcher " smoking status former smoker Caitlin Fletcher " passive cigarette smoke exposure No Iris Chance Exercise Program Referral T Deb Irene " Weight Management Counseling Provided T Deb " Nutrition intervention T Deb " drug use, illicit Never Debora Irene " alcohol use Never Debora Irene " smoking status former [facility]oker [facility] " is there any chance that you could be ? No Deborath Irene " assessment of health literacy ([facility] 2014 Standards, 3C10) Adequate Debora Irene " sexual orientation Heterosexual [facility] " passive cigarette smoke exposure No [facility] Exercise Program Referral T Deb Irene " Weight Management Counseling Provided T Deb " Nutrition intervention T Deb " drug use, illicit Never Debghent Irene " alcohol use Never Debghent Irene " social history reviewed E&M reviewed today [facility] " is there any chance that you could be ? No Deb Irene " sexual orientation Heterosexual [facility] " assessment of health literacy ([facility] 2014 Standards, 3C10) Adequate Debora Irene " passive cigarette smoke exposure No Debora Irene " smoking status current every day smoker [facility] sexual orientation Heterosexual Love Chisholm " sex at Male Love Chisholm " drug use, illicit Never Love Chisholm " alcohol use Never Love Chisholm " smoking status current every day smoker Love Chisholm " is there any chance that you could be ? No Love Chisholm " assessment of health literacy ([facility] 2014 Standards, 3C10) Adequate Love Chisohlm " passive cigarette smoke exposure No Love [...] " social history reviewed E&M reviewed today [facility] " is there any chance that you could be ? No [facility] " passive cigarette smoke exposure No [facility] " smoking status current every day smoker [facility] " assessment of health literacy ([facility] 2014 Standards, 3C10) Adequate [facility] Exercise Program Referral T ghent [facility] " Weight Management Counseling Provided T ghent [facility] " Nutrition intervention T ghent [facility] " drug use, illicit Never [facility] " alcohol use Never [facility] " social history reviewed E&M reviewed today [facility] " is there any chance that you could be ? No Debghent Irene " passive cigarette smoke exposure No [facility] " smoking status current every day smoker [facility] " assessment of health literacy ([facility] 2014 Standards, 3C10) Adequate [facility] drug use, illicit Never [facility] " alcohol use Never [facility] " patient considered to be homeless No [facility] " is there any chance that you could be ? No [facility] " passive cigarette smoke exposure No [facility] " smoking status current every day smoker [facility] " assessment of health literacy ([facility] 2014 Standards, 3C10) Adequate [facility] " Exercise Program Referral T [facility] " Weight Management Counseling Provided T [facility] " Nutrition intervention T [facility] FUNCTIONAL STATUS No Information Available [...] Disorder Questionnaire - Question 1 0 [facility] assessment of judgment and insight E&M intact David D Chance " mental status examination: orientation E&M oriented to time, place, and person David D Chance " assessment of mood and affect E&M no depression, anxiety, or agitation David D Chance " Generalized Anxiety Disorder Questionnaire - Question 2 0 Krys Irene " Generalized Anxiety Disorder Questionnaire - Question 1 0 [facility] of judgment and insight E&M intact [...] Anxiety Disorder Questionnaire - Question 1 0 [facility] assessment of judgment and insight E&M intact David D Chance " mental status examination: orientation E&M oriented to time, place, and person David D Chance " assessment of mood and affect E&M no depression, anxiety, or agitation David D Chance " Generalized Anxiety Disorder Questionnaire - Question 2 0 Krys Irene " Generalized Anxiety Disorder Questionnaire - Question 1 0 [facility] assessment of judgment and insight E&M intact [...] Disorder Questionnaire - Question 1 0 [facility] assessment of judgment and insight E&M intact David D Chance " mental status examination: orientation E&M oriented to time, place, and person David D Chnace " assessment of mood and affect E&M [...] Disorder Questionnaire - Question 1 0 [facility] assessment of judgment and insight E&M intact David D Chance " mental status examination: orientation E&M oriented to time, place, and person David D Chance " assessment of mood and affect E&M no depression, anxiety, or agitation David Fletcher " Generalized Anxiety Disorder Questionnaire - Question 2 0 Krys Irene " Generalized Anxiety Disorder Questionnaire - Question 1 0 [facility] assessment of judgment and insight [...] Anxiety Disorder Questionnaire - Question 2 0 Cyndieghentharitha Irene " Generalized Anxiety Disorder Questionnaire - Question 1 0 [facility] assessment of judgment and insight E&M intact David Fletcher " mental status examination: orientation E&M oriented to time, place, and person David Fletcher " assessment of mood and affect E&M no depression, anxiety, or agitation David Fletcher " Generalized Anxiety Disorder Questionnaire - Question 2 0 [facility] Irene " Generalized Anxiety Disorder Questionnaire - Question 1 0 [facility] assessment of judgment and insight E&M intact David Fletcher " mental status examination: orientation E&M oriented to time, place, and person David Fletcher " assessment of mood and affect E&M no depression, anxiety, or agitation David Fletcher " Generalized Anxiety Disorder Questionnaire - Question [address] [facility] Irene " Generalized Anxiety Disorder Questionnaire - Question 1 0 [facility] MEDICAL EQUIPMENT No Information Available [...] Consent/Declination Forms Est Patient Exp Problem - 37613 Est Patient Exp Problem - 80450 Est Patient Exp Problem - 49034 Est Patient Exp Problem - 02299 Ear Irrigation Est Patient Exp Problem - 36615 Est Patient Exp Problem - 31286 Est Patient Exp Problem - 18667 Est Patient Exp Problem - 52473 Est Patient Exp Problem - 03340 New Patient Intermediate Opth - 23668 Spherocyl, bif, plano to +/- 4.00d sphere, 0.12 [address] 2[address]d cyl, per lens Frames, purchases Est Patient Exp Problem - 85937 Diabetes Education Vision Est Patient Exp Problem - 06385 HEMOGLOBIN A1C - In House INFLUENZA VACCINE QUADRIVALENT 3 YRS PLUS IM Admin of Vaccine - Injection - 1 Est Patient Exp Problem - 15504 Est Patient Exp Problem - 60716 Est Patient Detailed - 52084 Est Patient Exp Problem - 44172 INFLUENZA VACCINE QUADRIVALENT 3 YRS PLUS IM Admin of Vaccine - Injection - 1 Est Patient Detailed - 56425 New Patient Comprehensive - 68972 HISTORY OF PROCEDURES Procedure Date Procedure Name Provider Procedure Notes Status First Vx - Ix admin for Medicare patients Adelita Kim completed Fluzone Quadrivalent IM Prefilled Syringe 0.5 mL (PF) Adelita Kim completed Vaccines Ordered - Print Consent/Declination Forms Adelita Kim completed Ear Irrigation David Fletcher pt tolerated procedure well; hearing improved afterwards completed New Patient Intermediate Opth - 10541 Deborah Suarezalexamadou completed Spherocyl, bif, plano to +/- 4.00d sphere, 0.12 to 2.00d cyl, per lens Criss Esparza completed Frames, purchases Criss Esparza Frame #[id number] (FFS) Pd 65.00 completed HEMOGLOBIN A1C - In House David Fletcher completed GOALS No Information Available HEALTH CONCERNS No Information Available
--- NOTE | 2019-03-15 07:10 | NUR ---
SPIRITUAL CARE - Pre-Surgery Assessment: Pt in bed. Pt's and granddaughter at bedside. Pt identified as Protestant. Pt reported supportive attention from family and friends. Intervention: I provided pastoral presence, hospitality, sympathetic listening, and prayer. I acquainted pt with availability of asbestos remover while hospitalized. Outcome: Pt expressed appreciation for visit. No need for follow up indicated at this time. SKYE CARL Offshoring Manager Spiritual Care Department O: [phone] Pager: [phone] ([phone] number calling from)
[2019-03-15 09:45] VITALS: BP 135/71
--- NOTE | 2019-04-24 05:19 | Operative Report ---
DATE OF PROCEDURE: 03/15/2019 SURGEON: Bossman Tafoya MD PREOPERATIVE DIAGNOSES: 1. Obstructive benign prostatic hyperplasia. 2. Incomplete bladder emptying. POSTOPERATIVE DIAGNOSES: 1. Obstructive benign prostatic hyperplasia. 2. Incomplete bladder emptying. OPERATIONS PERFORMED: 1. Cystourethroscopy with bilateral ureteral catheterization and retrograde ureteropyelography (separate procedure performed for the incomplete bladder emptying). 2. Interpretation of retrograde ureteropyelography. 3. Supervision of fluoroscopy, no radiologist present. 4. Cystourethroscopy with implantation of UroLift implants x4 (separate procedure performed for the obstructive benign prostatic hypertrophy. ANESTHESIA: General. COMPLICATIONS: None. CLINICAL SUMMARY: Paras Kowalski is a 63-year-old man with obstructive BPH. He has failed Flomax and Cardura. He has a history of cystoscopy, retrograde pyelogram with dilation of the stricture. He is brought for the above procedures. He is aware of the risks of bleeding, infection, injury to adjacent structures, need for additional procedures and elected to proceed. OPERATIVE PROCEDURE IN DETAIL: Informed consent was verified. Paras Kowalski was properly identified and taken to the operating room, placed on the cystoscopy table in supine position. Anesthesia was uneventfully begun. The patient was then carefully gently repositioned in the dorsal lithotomy position. All pressure points well padded. His genitalia were prepared and draped in usual sterile fashion. The cystoscope sheath with the visual obturator in place was atraumatically inserted into the patient's urethra, it was guided down to unremarkable urethra. There was no recurrence of the patient's stricture. We went through the normal sphincteric region and through the prostate bed, which was significant for visual obstructing bilobar BPH with kissing lateral lobes. We entered the patient's bladder. Panendoscopy revealed grade 1 trabeculations, but there were no tumors, no stones, no true diverticula. Normally positioned configured ureteral orifices were identified. An 8-Kinyarwanda catheter was used to cannulate each ureter and retrograde ureteral pyelograms were performed. Interpretation of retrograde ureteropyelography, contrast was instilled in retrograde fashion bilaterally. There were no tumors, no stones, no diverticula. Unobstructed drainage was observed bilaterally fluoroscopically. Bilateral J hooking was noted. The cystoscope was withdrawn. The UroLift cystoscope was atraumatically placed with the visual obturator. We then deployed four UroLift implants. They were deployed anterolaterally on either side 1.5 cm distal to the bladder neck as well as on either side at the level of the verumontanum. This resulted in a continuous anterior channel, which was open. There was no significant bleeding. The patient's bladder was drained. Cystoscope was withdrawn. The belladonna and opium suppository were placed revealing a 35 g prostate, that is smooth, nonfluctuant without any nodules. The patient was then uneventfully reversed from anesthesia and taken to recovery room in stable condition. There were no complications to the procedure. He tolerated the procedure well. Explicit postop instructions were given. We will follow the patient up in the office. Bossman Tafoya MD [place]/MOD[facility] /[id number]
== END | disposition home or self-care (01) ==
LOC: OR 06:26
PROVIDERS: ATTEND Urology
DX: N40.1 Benign prostatic hyperplasia with lower urinary tract symptoms (principal); N13.8 Other obstructive and reflux uropathy; R39.14 Feeling of incomplete bladder emptying; N32.89 Other specified disorders of bladder; I10 Essential (primary) hypertension; E11.9 Type 2 diabetes mellitus without complications; M19.90 Unspecified osteoarthritis, unspecified site; E07.9 Disorder of thyroid, unspecified; M10.9 Gout, unspecified; F32.9 Major depressive disorder, single episode, unspecified; Z01.810 Encounter for preprocedural cardiovascular examination; Z01.812 Encounter for preprocedural laboratory examination; Z01.818 Encounter for other preprocedural examination; Z79.84 Long term (current) use of oral hypoglycemic drugs; Z91.81 History of falling; Z87.891 Personal history of nicotine dependence
CPT/HCPCS: 52005; C9740; 36415; 71046; 74420; 80048; 82948; 85025; 93005; C1758; J0696; J1100; J1580; J2001; J2405; J3010; L8699

== ENCOUNTER 2019-08-22 21:20 | Emergency (ER) | payer MEDICARE, OTHER ==
[~2019-08-22] VITALS: Ht 170.2 cm; Wt 88.5 kg
[~2019-08-22 21:20] MED LIST changes: -B&O 60MG R/S 60 MG SUPP PR ONE; -CEFTRIAXONE SOD 1 GM/NS 50 ML 50 ML IV ONE; -DEXAMETHASONE SOD PHOS INJ 4 MG/ML VIAL ONE; -FENTANYL CITRATE/PF 100MCG/2 ML INJ ONE; -GENTAMICIN 80MG/NS 100 ML 200 ML IV ONE; -IOPAMIDOL 300MG/ML 50ML INFUS..BTL IV ONE; -LIDOCAINE HCL 2% LOCAL INJ 5 ML SDV VIAL INJ ONE; -ONDANSETRON HCL INJ 2MG/ML 2ML 2 MG/ML VIAL ONE; -PROPOFOL IV EMULSION 10 MG/ML 50 ML VIAL ONE; -SEVOFLURANE INHAL SOLN 250 ML PEN BTL ONE
[2019-08-22] MEDS ORDERED: ACETAMINOPHEN 325 MG TAB PO STA ×2 (21:42→21:46)
--- NOTE | 2019-08-22 21:51 | Emergency Department Note ---
History of Present Illnes History of Present Illness Chief Complaint: COVID PUI History of Present Illness This is a 64 year old male . Arrival Mode: Car Onset (how long ago): day(s) (1) Severity: mild Onset quality: gradual Duration (how long): day(s) (1) Timing of current episode: constant Progression: unchanged Chronicity: new Context: Reports recent illness Relieving factors: none Exacerbating factors: none Associated symptoms: Reports fever/chills, Reports malaise Treatments prior to arrival: none Past Medical/Family History Physician Review I have reviewed the patient's past medical and family history. Any updates have been documented here. Past Medical History Recent Fever: Yes Clinical Suspicion of Infectio: Yes New/Unexplained Change in Ment: No Past Medical History: Diabetes, Hypothyroidism, Hyperlipedemia Other Medical History: KIDNEY STONE Past Surgical History: T&A Other Surgery: GALLSTONES Social History Smoking Cessation: Never Smoker Alcohol Use: None Any Illegal Drug Use: No Review of Systems Review of Systems Constitutional: Reports fever, Reports malaise EENTM: Reports throat pain Cardiovascular: Reports no symptoms Respiratory: Reports no symptoms Gastrointestinal: Reports no symptoms Genitourinary: Reports no symptoms Musculoskeletal: Reports no symptoms Integumentary: Reports no symptoms Neurological: Reports no symptoms Psychological: Reports no symptoms Endocrine: Reports no symptoms Hematological/Lymphatic: Reports no symptoms Physical Exam Related Data Allergies: Coded Allergies: No Known Allergies (Unverified , 01/26/18) Triage Vital Signs Vital Signs Date Time Temp Pulse Resp B/P (MAP) Pulse Ox O2 Delivery O2 Flow Rate FiO2 08/22/19 21:44 102.1 101 20 142/78 99 Room Air Vital signs reviewed: Yes Physical Exam CONSTITUTIONAL Constitutional: Present well-developed, Present well-nourished HENT HENT: Present normocephalic, Present atraumatic, Present oropharynx clear/moist, Present nose normal HENT L/R: Present left ext ear normal, Present right ext ear normal EYES Eyes: Reports PERRL, Reports conjunctivae normal NECK Neck: Present ROM normal PULMONARY Pulmonary: Present effort normal, Present breath sounds normal CARDIOVASCULAR Cardiovascular: Present regular rhythm, Present heart sounds normal, Present capillary refill normal, Present normal rate GASTROINTESTINAL Abdominal: Present soft, Present nontender, Present bowel sounds normal GENITOURINARY Genitourinary: Present exam deferred SKIN Skin: Present warm, Present dry MUSCULOSKELETAL Musculoskeletal: Present ROM normal NEUROLOGICAL Neurological: Present alert, Present oriented x 3, Present no gross motor or sensory deficits PSYCHOLOGICAL Psychological: Present mood/affect normal, Present judgement normal Assessment & Plan Medical Decision Making MDM 64 yom with fever and myalgias. COVID-19 highly suspected but testing deferred secondary to stable vital signs and high oxygen saturation on RA. Patient to be given Rx Azithromycin and albuterol. Patient to be given resources for outpatient testing center- Assessment & Plan Final Impression: (1) Person under investigation for COVID-19 Depart Disposition: HOME, SELF-CARE Last Vital Signs Date Time Temp Pulse Resp B/P (MAP) Pulse Ox O2 Delivery O2 Flow Rate FiO2 08/22/19 21:44 102.1 101 20 142/78 99 Room Air Home Meds Reported Medications [Tylenol] No Conflict Check, 650 MG PO PRN 03/14/19 Allopurinol (ALLOPURINOL) 100 Mg Tablet, 100 MG PO DAILY, #30 TAB 03/14/19 Amlodipine Besylate (AMLODIPINE BESYLATE) 10 Mg Tablet, 10 MG PO DAILY, #30 TAB 03/14/19 Gemfibrozil (GEMFIBROZIL) 600 Mg Tablet, 600 MG PO BID 03/14/19 Metformin Hcl (METFORMIN HCL) 850 Mg Tablet, 850 MG PO BID 01/26/18 Metoprolol Succinate (METOPROLOL SUCCINATE) 25 Mg Tab.er.24h, 25 MG PO DAILY 01/26/18 Doxazosin Mesylate (DOXAZOSIN MESYLATE) 4 Mg Tablet, 4 MG PO BID 01/26/18 Lisinopril (LISINOPRIL) 10 Mg Tablet, 20 MG PO DAILY, #30 TAB 01/26/18 Medications in the ED Acetaminophen 500 mg ONCE STAT PO ; Start 08/22/19 at 21:42; Stop 08/22/19 at 21:48; Status DC Acetaminophen 650 mg ONCE STAT PO ; Start 08/22/19 at 21:46; Stop 08/22/19 at 21:47; Status JEB MARTINEZ DO Aug 22, 2019 21:51
[2019-08-22] MEDS ORDERED: ACETAMINOPHEN 325 MG TAB ONE (21:58)
[2019-08-22] MEDS ORDERED: IBUPROFEN 600 MG TAB PO STA (22:53)
[2019-08-22] MEDS ORDERED: IBUPROFEN 600 MG TAB ONE (22:58)
== END 2019-08-22 23:08 | disposition home or self-care (01) ==
LOC: ER 21:40
DX: R50.9 Fever, unspecified (principal); R53.81 Other malaise; E11.9 Type 2 diabetes mellitus without complications; E78.5 Hyperlipidemia, unspecified; E03.9 Hypothyroidism, unspecified
CPT/HCPCS: 99283

== ENCOUNTER 2021-11-05 21:24 | Emergency (ER) | payer MEDICARE ==
[~2021-11-05] VITALS: Ht 170.2 cm; Wt 88.5 kg
[2021-11-05] MEDS ORDERED: PENICILLIN V P500 MG PO (21:45)
[2021-11-05] MEDS ORDERED: NAPROSYN500 MG PO (21:45)
== END 2021-11-05 21:54 | disposition home or self-care (01) ==
LOC: ER 21:37
DX: K08.89 Other specified disorders of teeth and supporting structures (principal); K02.9 Dental caries, unspecified; I10 Essential (primary) hypertension; E11.9 Type 2 diabetes mellitus without complications; E78.5 Hyperlipidemia, unspecified; E03.9 Hypothyroidism, unspecified; Z87.442 Personal history of urinary calculi
CPT/HCPCS: 99282

== ENCOUNTER 2022-06-09 14:39 | Emergency (ER) | payer MEDICARE ==
[~2022-06-09] VITALS: Ht 170.2 cm; Wt 88.5 kg
[~2022-06-09 14:39] MED LIST changes: +NAPROSYN500 MG PO; +PENICILLIN V P500 MG PO
[2022-06-09] MEDS ORDERED: LORAZEPAM INJ 2 MG/ML VIAL IV ONE (15:00)
[2022-06-09] MEDS ORDERED: FAMOTIDINE 20 MG/2 ML VIAL IV STA ×2 (15:06→15:10)
[2022-06-09] MEDS ORDERED: ONDANSETRON HCL INJ 2MG/ML 2ML 2 MG/ML VIAL IV STA ×2 (15:06→15:10)
[2022-06-09 15:18] LABS: BASOPHILS # (AUTO) 0.1 (0.0-0.1); BASOPHILS % 0.6 % (0.0-1.0); EOSINOPHILS # (AUTO) 0.1 (0.0-0.4); EOSINOPHILS % 0.8 % (0.0-6.0); HEMATOCRIT 43.5 % (38.2-49.6); HEMOGLOBIN 14.8 g/dL (14.0-18.0); LYMPHOCYTES # (AUTO) 1.5 (1.0-3.2); LYMPHOCYTES % 10.3 % (18.0-39.1); MEAN CORPUSCULAR HEMOGLOBIN 30.1 pg (28-32); MEAN CORPUSCULAR VOLUME 88.6 fL (81-99); MONOCYTES # (AUTO) 0.5 (0.2-0.8); MONOCYTES % 3.4 % (4.4-11.3); NEUTROPHILS # (AUTO) 11.9 (2.1-6.9); NEUTROPHILS % 83.8 % (38.7-80.0); PLATELET COUNT 231 x10e3/uL (140-360); RED BLOOD COUNT 4.91 x10e6/uL (4.3-5.7); RED CELL DISTRIBUTION WIDTH 14.6 % (11.7-14.4)
[2022-06-09 15:33] LABS: ANION GAP 16.3 mmol/L (8-16); CALCIUM 9.8 mg/dL (8.4-10.2); CREATININE, SERUM 1.72 mg/dL (0.72-1.25); POTASSIUM 4.3 mmol/L (3.5-5.1)
== END 2022-06-09 17:33 | disposition home or self-care (01) ==
LOC: ER 14:54
DX: G24.02 Drug induced acute dystonia (principal); R51.9 Headache, unspecified; E11.65 Type 2 diabetes mellitus with hyperglycemia; I10 Essential (primary) hypertension; E78.5 Hyperlipidemia, unspecified; E03.9 Hypothyroidism, unspecified; Z87.442 Personal history of urinary calculi
CPT/HCPCS: 36415; 80048; 85025; 93005; 99284; J2060; J2405